=== PATIENT | female | born 1940 | race Caucasian/White ===

== ENCOUNTER 2024-11-25 18:09 | Inpatient (IN) | payer MEDICARE, OTHER, SELFPAY ==
[2024-11-25 12:47] VITALS: BP 146/77
[2024-11-25 13:32] LABS: % Basophils 2.2 % (0-2); % Eosinophils 1.4 % (0-6); % Lymphocytes 10.4 % (20.5-51.1); % Monocytes 13.4 % (1.7-9.3); % Neutrophils 71.6 % (42.2-75.2); Absolute Basophils 0.1 10^3/uL (0-0.2); Absolute Eosinophils 0.1 10^3/uL (0-0.7); Absolute Immature Granulocytes 0.1 10^3/uL (0-0.05); Absolute Lymphocytes 0.6 10^3/uL (1.2-3.4); Absolute Monocytes 0.8 10^3/uL (0.1-0.6); Absolute Neutrophils 4.2 10^3/uL (1.4-6.5); Hematocrit 32.8 % (37.0-47.0); Mean Corp Hgb Conc. 36.6 g/dL (33.0-37.0); Mean Corpuscular Hgb 41.7 pg (27.0-31.0); Mean Corpuscular Volume 113.9 fL (81.0-99.0); Nucleated Red Blood Cells % 5.1 %; Platelet Count 234 10^3/uL (130-400); Red Blood Cell Count 2.88 10^6/uL (4.20-5.40); Red Cell Dist. Width 20.3 % (11.5-14.5); White Blood Cell Count 5.9 10^3/uL (4.8-10.8)
[2024-11-25 13:47] LABS: ALT (SGPT) 91 U/L (0-35); AST (SGOT) 107 U/L (14-36); Albumin 3.9 g/dl (3.5-5.0); Alkaline Phosphatase 50 U/L (38-126); Blood Urea Nitrogen 65 mg/dl (7-17); Calcium 9.5 mg/dl (8.4-10.2); Carbon Dioxide 28 mmol/L (22-30); Chloride 99 mmol/L (98-107); Glucose 90 mg/dl (70-99); Potassium 3.4 mmol/L (3.5-5.1); Sodium 138 mmol/L (135-145); Total Bilirubin 1.8 mg/dl (0.2-1.3); Total Protein 6.6 g/dl (6.3-8.2); eGFR 50.17
[2024-11-25 14:00] LABS: NT-proBNP > 27000 pg/ml; Troponin I 0.148 ng/ml
[2024-11-25 14:32] VITALS: BMI 24.3
--- NOTE | 2024-11-25 14:32 | PHANOTE ---
Addendum entered by Diana Foreman 11/25/24 14:43:
patient daughter in room now, called her sister to stop by patient independent living apartment at crisis to bring in medication list an/ or bottles
Original Note:
med rec note- called patient doctors office at [phone] but went to voice mail after being transfer. also called patient pharmacy on file but patient currently using mail order
[2024-11-25] MEDS: KCL 40 MEQ PO (14:59)
[2024-11-25] MEDS: LASIX 40 MG IV (14:59)
[2024-11-25] MEDS: KCL 160 MEQ IV (15:54)
--- NOTE | 2024-11-25 17:05 | ED.GENMED ---
History of Present Illness
General
Chief Complaint: Breathing Problem
Time Seen by Provider: 11/25/24 14:22
History of Present Illness
History of Present Illness:
84-year-old female with history of CHF, hypertension, and hyperlipidemia presents to the emergency department for evaluation of shortness of breath and fatigue for the past several days. She has had increasingly worsening bilateral leg edema and
was switched by her gravel wheeler from furosemide to torsemide however feels like she is not urinating well since that time. Denies any chest pain at this point. She also has had multiple falls recently, most notably struck the left flank on the
ground and has a large amount of bruising and swelling to that area.
Review of Systems
Review of Systems
Allergies reviewed?: Yes
All Other Systems: ROS reviewed and negative except as documented in HPI and ROS
Phy Exam
Physical Exam
Physical Exam:
GEN: Well appearing, NAD, WDWN
HEENT: Oral mucosa moist, no scleral icterus
Cardiac: Regular rate
Lung: Tachypneic, no accessory muscle use, bibasilar crackles and diminished breath sounds
Abdomen: Soft, nontender, large flank hematoma in the left
MSK: No gross deformity or injuries, moderate to severe pedal edema bilaterally
Skin: Good color, no pallor or jaundice, no rashes
Neuro: AO x3, moves all extremities freely
Psych: Calm, cooperative
Scores
Heart Failure Risk
Heart Failure Risk Score: Yes
History of Stroke or TIA: No
History of intubation for respiratory distress: No
Heart rate on ED arrival >/= 110: Yes
SaO2 <90% on arrival on room air: Yes
HR >/=110 during 3min walk test (or too ill to perform test): Yes
ECG has acute ischemic changes: No
Urea >/=12mmol/L (BUN 33.6mg/dL): No
Serum CO2>/=35mmol/L: No
Troponin I or T elevated to ID Level (0.4mg/dL): Yes
NT-proBNP >/=5,000ng/L (5,000pg/ml): Yes
HF Risk Score: 6
Admission Status: VERY HIGH RISK 55.3% Consider admission to hospital
Course
Orders/Labs/Results
Orders:
Orders
11/25/24 12:48
Electrocardiogram (*1) Urgent
Reason for Study: Shortness of Breath
EKG- Treatment ONCE
11/25/24 13:08
Complete Blood Count/With Diff Urgent
Comprehensive Metabolic Panel Urgent
NT-proBNP Urgent
Troponin I Urgent
11/25/24 14:51
CT Abd/Pel (IV only)-DH only Urgent
Comment:
Reason For Exam: fall, L flank hematoma
Furosemide [Lasix] 40 mg IV NOW STA
Potassium Chloride [KCl] 40 meq PO NOW STA
CR Chest - 2 Views Urgent
Comment:
Reason For Exam: SOB
11/25/24 14:58
Potassium Chloride [KCl] 20 meq 0.9% Sodium Chloride 150 ml [Nss] 150 ml IV NOW
11/25/24 17:45
Admit/Transfer Patient As Directed
Co-Sign Provider:
Level of Care: Inpatient admission
Assign to:: Telemetry
Physician / Group: Dr Best
Diagnosis: CHF
Reason for Telemetry: Subacute Heart Failure
Date to Stop Telemetry: 11/27/24
Time to Stop Telemetry: 11:00
Reason for Hospitalization: CHF
Expected length of stay greater than two midnights?: Yes
ELOS- Estimated Length of Stay in days: 2
I certify the patient meets the requirements for IP care: Yes
PRN Pain Medication Management As Directed
May give lesser potent ordered pain med per pt: Yes
preference::
Protocol:: Medication orders for pain may be administered in a
manner that supports deferring to patient preference
when the pt is:
- Requesting an ordered lesser potent pain medication.
Least to most potent pain medications are defined
as: acetaminophen < NSAID < tramadol < opioids
(morphine, oxycodone, hydromorphone).
- Requesting a lesser dose of the same medication IF
ORDERED.
- Requesting a less intrusive route of administration
if both routes are prescribed by the provider (PO <
IV).
11/25/24 17:46
Code Status As Directed
Resuscitation Status: Full Code
11/25/24 17:48
Echo 2D MMode Color/Doppler Routine
Reason for Study: CHF
11/25/24 18:05
Code Status As Directed
Resuscitation Status: Do not resuscitate
Reached after discussion with pt or family/Healthcare POA: Yes
DNR Bracelet Application ONCE
11/26/24 06:00
Magnesium IN AM
11/27/24 11:00
DC Protocol for Telemetry ONCE
Abnormal Lab Results
11/25/24
13:08
RBC 2.88 L 10^6/uL
(4.20-5.40)
Hct 32.8 L %
(37.0-47.0)
MCV 113.9 H fL
(81.0-99.0)
MCH 41.7 H pg
(27.0-31.0)
RDW 20.3 H %
(11.5-14.5)
MPV 11.0 H fL
(7.4-10.4)
Abs Immat Gran (auto) 0.1 H 10^3/uL
(0-0.05)
Absolute Lymphs (auto) 0.6 L 10^3/uL
(1.2-3.4)
Absolute Monos (auto) 0.8 H 10^3/uL
(0.1-0.6)
Immature Gran % 1.0 H %
(0-0.5)
Lymphocytes % 10.4 L %
(20.5-51.1)
Monocytes % 13.4 H %
(1.7-9.3)
Basophils % 2.2 H %
(0-2)
Potassium 3.4 L mmol/L
(3.5-5.1)
BUN 65 H mg/dl
(7-17)
Creatinine 1.1 H mg/dL
(0.6-1.0)
Total Bilirubin 1.8 H mg/dl
(0.2-1.3)
AST 107 H U/L
(14-36)
ALT 91 H U/L
(0-35)
Troponin I 0.148 H* ng/ml
11/25/24 13:08
11/25/24 13:08
Vital Signs
Initial and Last Documented VS:
Initial Vital Signs
Temp Pulse Resp BP Pulse Ox
98.2 F 78 16 146/77 100
11/25/24 12:47 11/25/24 12:47 11/25/24 12:47 11/25/24 12:47 11/25/24 12:47
Last Documented Vital Signs
Temp Pulse Resp BP Pulse Ox
98.2 F 77 20 146/77 89
11/25/24 12:47 11/25/24 17:30 11/25/24 18:00 11/25/24 14:59 11/25/24 17:30
MDM/Problems Addressed
MDM/Problems Addressed:
Patient is markedly volume overloaded with respiratory failure and hypoxia. CTA of the abdomen pelvis was obtained to evaluate for intra-abdominal trauma in the setting of recent fall, this revealed only an extra-abdominal hematoma. Incidentally
noted large pulmonary effusions bilaterally. Patient will require admission for IV diuresis and close monitoring for further management
*Pulse Oximetry
Patient hypoxic: yes
*Critical Care Note
Total Time (30-74mins, 75-104mins- exclusive of procedures): Not Applicable
ED Attending Note
-
Portions of this chart may have been created with voice recognition software.� Occasional wrong word or��sound alike� substitutions may have occurred due to the inherent limitations of voice recognition software.
Discharge Plan
Departure
Patient Disposition: Admit
Date of Disposition: 11/25/24
Time of Disposition: 17:06
Admit to: Telemetry
Presentation/result/management discussed w/ accepting MD/DO: Hospitalist
Discharge Problem:
Acute decompensated heart failure
Interventions
Interventions:
*Risk Screen - Suicide Last Done: 11/25/24 12:48
*General Assessment Last Done: 11/25/24 14:41
*Neglect/Abuse Screening Last Done: 11/25/24 12:48
*ED- Fall Risk Assessment Last Done: 11/25/24 14:40
*ED COVID-19 Vaccine History Last Done: 11/25/24 14:40
ED- Cardiac Assessment Last Done: 11/25/24 14:42
ED- Pulmonary Assessment Last Done: 11/25/24 14:43
--- NOTE | 2024-11-25 17:48 | HPS.HSE ---
Family Physician
-
Family Physician: Casey Uriarte
Chief Complaint
-
sob
History of Present Illness
Patient 84 years old female who has past medical history of CHF, hypertension, depression, GERD, came into the hospital shortness of breath and lower extremity edema. Patient has been experiencing dyspnea over the last 1 to 2 weeks has been
progressively getting worse associated with worsening lower extremity edema. She denies weight gain. She also has noticed that she has not been urinating as much as she should. She denies chest pain. She has seen her metal engraver (Dr. Gonzalez) and
he has switched his regular furosemide 20 mg daily to torsemide about a week ago and despite changes patient has been continue to be symptomatic. Patient denies any fevers or chills. Denies any nausea vomiting or diarrhea. Patient does have poor
appetite. In the ER, patient was noted to have a chest x-ray with heart failure features, elevated troponin, and she was given IV Lasix x 1 in the ED. She was referred to hospitalist service for further evaluation
Medical History
Past Medical History
Past Medical History: Reports Other
Additional Past Medical History:
Hypertension, GERD, CHF.
Past Surgical History: Reports None
Social History
Tobacco: Non-smoker
Alcohol: None
Drug: None
Family History
Family History: Not pertinent
Allergies / Home Medications
Allergies reflects when Allergies were last updated in [employer].
Home Medications with original date entered in [employer]
Allergy/Medication List:
Allergies
Allergy/AdvReac Type Severity Reaction Status Date / Time
No Known Allergies Allergy Unverified 11/25/24 12:47
Home Medications
atenolol 25 mg tablet 25 mg PO DAILY 11/25/24
bimatoprost 0.03 % eye drops 1 drp BOTH EYES HS 11/25/24
celecoxib 200 mg capsule 200 mg PO DAILYPRN PRN mild pain 11/25/24
cevimeline 30 mg capsule 1 cap PO TID 11/25/24
cholecalciferol (vitamin D3) 50 mcg (2,000 unit) tablet (Vitamin D3) 50 mcg PO DAILY 11/25/24
dorzolamide 22.3 mg-timolol 6.8 mg/mL eye drops (Cosopt) 1 drp BOTH EYES BID 11/25/24
famotidine 40 mg tablet (Pepcid) 40 mg PO HS 11/25/24
pantoprazole 40 mg tablet,delayed release (Protonix) 40 mg PO DAILY 11/25/24
sertraline 50 mg tablet 125 mg PO DAILY 11/25/24
therapeutic multivitamin 1 tab PO DAILY 11/25/24
torsemide 20 mg tablet 10 mg PO DAILY 11/25/24
valsartan 160 mg tablet 160 mg PO DAILY 11/25/24
Review of Systems
-
A 12 point ROS was completed and negative except as noted: Yes
Physical Exam
Vital Signs
Vital Signs
Temp Pulse Resp BP Pulse Ox
98.2 F 77 22 146/77 89
11/25/24 12:47 11/25/24 17:30 11/25/24 17:30 11/25/24 14:59 11/25/24 17:30
Physical exam:
General: Acutely ill
HEENT: Normocephalic, Atraumatic and Moist Mucous Membranes
Respiratory: Coarse crackles bilateral; Negative Wheezes or Rhonchi
Cardiac: Regular Rhythm and S1/S2
GI: Soft, Nontender and Nondistended
Musculoskeletal: Bilateral lower extremity edema 2+. No Clubbing, No Cyanosis
Neuro: Awake, Alert and Oriented, no neurological deficit
Psych: Calm
Physical Exam
General: Other
Laboratory Results
-
11/25/24 13:08
11/25/24 13:08
Laboratory Results
Total Bilirubin 1.8 mg/dl (0.2-1.3) H 11/25/24 13:08
AST 107 U/L (14-36) H 11/25/24 13:08
ALT 91 U/L (0-35) H 11/25/24 13:08
Alkaline Phosphatase 50 U/L (38-126) 11/25/24 13:08
Troponin I 0.148 ng/ml H* 11/25/24 13:08
Data Reviewed
-
Diagnostic Radiology: Image Personally Visualized and interpreted
Lab Data: Labs Reviewed by me
Impression/Plan
-
IMPRESSION:
Patient 84 years old female with multiple medical problem came into the hospital shortness of breath and found to be in heart failure decompensation. Patient had increased risk of morbidity mortality therefore she will need to be treated in the
hospital and monitor accordingly.
PLAN:
Acute on chronic CHF, type unknown:
IV diuretics, Lasix 40 mg twice a day
BNP upon admission [address]
Chest x-ray seen by me and with CHF features
Monitor strict I/O
Monitor daily weight
Monitor renal function and electrolytes
Obtain echocardiogram
Once we obtain accurate list of medication we can review appropriate GDMT
Fluid restriction
Salt restriction
Heart failure education
Follow up clinical response
Cardiology consult-discussed with cardiology via [place] text today
Hypertension:
Will have her on IV hydralazine as needed
Restart her home medications when available
Monitor blood pressure closely
Depression:
Restart home anti-depressants when able
GERD:
Clarify if on H2 tamara or PPI
DVT prophylaxis:
Lovenox SQ
CODE STATUS:
DNR
Time spent 77 minutes
[2024-11-25 18:56] VITALS: BP 132/80
[2024-11-25 19:00] VITALS: BP 132/75
--- NOTE | 2024-11-25 20:32 | PTCARENOTE ---
left iv found to be infiltrated. a small area of localized swelling and redness (2 cm radius) observed with associated tenderness. Redness resolved after d/Cing K rider infusion. Iv removed and limb elevated. Provider and VAT team made aware. IV
removed and restarted on opposite limb.
[2024-11-25 20:49] VITALS: BP 137/56
--- NOTE | 2024-11-25 20:50 | PTCARENOTE ---
Pt arrived from the ED via stretcher accompanied by daughter. Patient turned and pivoted onto the bed. AAOx3, VSS. No complaints of pain. Ambulated with a walker. Does report stress incontinence, has own pullups. Patient and family oriented to the
room. Educated about diet and fluid restriction. Call nation is within reach.
--- NOTE | 2024-11-25 20:55 | VATNOTE ---
TT from ER nurse that pt had a k rider infiltrate. This VAT RN noted left AC area taped and labeled; size approx 5 cm wide. pt stated only hurt when touched. Heat applied and elevated left arm on pillow. VAT to follow.
[2024-11-25 21:19] VITALS: BMI 24.3
[2024-11-25] MEDS: LOVENOX 40 MG SC (21:25)
[2024-11-25 21:44] VITALS: BMI 23.1
[2024-11-25 23:35] VITALS: BP 134/81
[2024-11-25 23:41] LABS: Troponin I 0.119 ng/ml
[2024-11-26 00:19] VITALS: BMI 23.1
[2024-11-26 03:20] VITALS: BP 142/83
[2024-11-26 06:50] LABS: Hematocrit 31.6 % (37.0-47.0); Hemoglobin 11.8 g/dL (12.0-16.0); Mean Corp Hgb Conc. 37.3 g/dL (33.0-37.0); Mean Corpuscular Hgb 41.8 pg (27.0-31.0); Mean Corpuscular Volume 112.1 fL (81.0-99.0); Platelet Count 239 10^3/uL (130-400); Red Blood Cell Count 2.82 10^6/uL (4.20-5.40); White Blood Cell Count 5.3 10^3/uL (4.8-10.8)
[2024-11-26 07:14] LABS: Blood Urea Nitrogen 56 mg/dl (7-17); Calcium 9.1 mg/dl (8.4-10.2); Carbon Dioxide 29 mmol/L (22-30); Chloride 103 mmol/L (98-107); Estimated Creatinine Clearance 30 ml/min; Glucose 97 mg/dl (70-99); Magnesium 1.9 mg/dl (1.6-2.3); Potassium 3.5 mmol/L (3.5-5.1); Sodium 139 mmol/L (135-145); eGFR 50.17
[2024-11-26 07:48] VITALS: BP 136/84
[2024-11-26] MEDS: LASIX 40 MG IV ×2 (08:10→15:15)
[2024-11-26 08:32] VITALS: BMI 23.1
--- NOTE | 2024-11-26 10:08 | W.PN.HOSP.TC ---
Today's Communication/Plan
-
IV diuretics
Assessment / Plan
Assessment / Plan
Physical exam:
General: Acutely ill
HEENT: Normocephalic, Atraumatic and Moist Mucous Membranes
Respiratory: Coarse crackles bilateral; Negative Wheezes or Rhonchi
Cardiac: Regular Rhythm and S1/S2
GI: Soft, Nontender and Nondistended
Musculoskeletal: Bilateral lower extremity edema 2+. No Clubbing, No Cyanosis
Neuro: Awake, Alert and Oriented, no neurological deficit
Psych: Calm
A/P:
Acute on chronic systolic CHF:
IV diuretics, Lasix 40 mg twice a day
BNP upon admission [address]
Chest x-ray seen by me and with CHF features
Monitor strict I/O
Monitor daily weight
Monitor renal function and electrolytes
Obtain echocardiogram
Will follow-up cardiology recommendations in terms of GDMT
Fluid restriction
Salt restriction
Heart failure education
Follow up clinical response
Cardiology consult-discussed with cardiology via [place] text today
Hypertension:
Will have her on IV hydralazine as needed
Restart her home medications but might need adjustment
Monitor blood pressure closely
Depression:
Restart home anti-depressants today
GERD:
Continue H2 tamara and PPI
DVT prophylaxis:
Lovenox SQ
CODE STATUS:
DNR
Total time spent on today's encounter was 52 minutes which included time spent in counseling the patient/family regarding diagnosis and treatment plan as listed above, goals of care, and symptom management. Case was discussed with nursing staff,
specialists, and care coordinators/case management. All labs and imaging personally reviewed by me. Remainder the time spent in detailed review of previous records, lab data, imaging, and other medical provider documentation.
Anticipated Discharge: > 48 hours
Subjective/Interval History
-
Date of Service: November 26, 2024
Patient still feels short of breath but improving. She is upset after cardiology gave her some news.
Objective Data
-
Labs:
Laboratory Results
11/26/24
06:27
WBC 5.3
Hgb 11.8 L
Hct 31.6 L
Plt Count 239
Sodium 139
Potassium 3.5
Chloride 103
Carbon Dioxide 29
BUN 56 H
Creatinine 1.1 H
Glucose 97
Calcium 9.1
Vital Signs:
Vital Signs
Temp Pulse Resp BP Pulse Ox
97.9 F 88 18 136/84 94
11/26/24 07:48 11/26/24 08:10 11/26/24 07:48 11/26/24 08:10 11/26/24 07:48
I&O
11/25/24 11/26/24 11/27/24
06:59 06:59 06:59
Intake Total 640 / 640 240 / 240
Balance 640 / 640 240 / 240
--- NOTE | 2024-11-26 10:36 | CON.CAR ---
Addendum entered and electronically signed by Kaz Sampson MD 11/26/24 13:42:
Patient seen and examined in collaboration with [employer]; agree with below.
- 84-year-old female with CHF (followed by her primary Music Store Manager at [facility]) admitted with CHF exacerbation; this a threat to life.
- The patient's echocardiogram today revealed an LVEF of 10-15%, moderate to severe MR/TR, and moderate AR; this is likely not acute.
- The patient appears to be a poor candidate for any aggressive measures/workup; she is currently vomiting as well.
- Minimal troponin elevation is most likely secondary to acute nonischemic myocardial injury in the setting of CHF exacerbation.
- Conservative cardiac management is recommended overall.
- Continue Lasix 40 mg IV BID.
- GDMT optimization recommended:
- Will change from atenolol to Toprol-XL 25 mg daily.
- Will change from valsartan to Entresto BID.
- Will start Farxiga 10 mg daily.
- Will hold off on adding spironolactone due to mild renal insufficiency for now; can reevaluate as outpatient.
Original Note:
Consultation
Consultation Request
Date/Time Consultation Requested: 11/26/24 9a
Date/Time Consultation Performed: 11/26/24 10a
Requesting Provider: Dr. Best
Performing Provider: NBA Robert for Dr. Sampson
Reason for Consultation: CHF
Medical History
-
Chief Complaint: SOB
History of Present Illness:
Mrs. White is an 84 yo female (outpatient balance sheet analyst is Dr. Gonzalez) with CHF (unknown EF), HTN, GERD and HLD, who presents to the ER with c/o SOB/SALES and increased LE edema for 1 week. She is admitted to the hospitalist service and we are
consulted for acute CHF. She states seeing Dr. Gonzalez last week for same complaints and he changed her Lasix 20mg daily to Torsemide 10mg daily. She feels no improvement in symptoms and admits to weakness/fatigue and confusion. ProBNP is > 27,000,
CXR with mild CHF, small bilateral pleural effusions with associated atelectasis and/or pneumonia, cannot rule out component of underlying chronic interstitial lung disease.
Past Medical History
Past Medical History: Other (as above)
Social History
Tobacco: Non-Smoker
Alcohol: None
Personal:
Living: Assisted Living ([facility] )
Employment: Retired
Family History
Family History: Reviewed & Not Pertinent
Allergies / Home Medications
Allergy/AdvReac Type Severity Reaction Status Date / Time
No Known Allergies Allergy Unverified 11/25/24 12:47
�Medication �Instructions �Recorded �Confirmed �Type
atenolol 25 mg tablet 25 mg PO DAILY Blood Pressure 11/25/24 11/25/24 History
bimatoprost 0.03 % eye drops 1 drp BOTH EYES HS Eye Condition 11/25/24 11/25/24 History
celecoxib 200 mg capsule 200 mg PO DAILYPRN PRN mild pain 11/25/24 11/25/24 History
cevimeline 30 mg capsule 1 cap PO TID Xerostomia 11/25/24 11/25/24 History
cholecalciferol (vitamin D3) 50 50 mcg PO DAILY Supplement 11/25/24 11/25/24 History
mcg (2,000 unit) tablet (Vitamin
D3)
dorzolamide 22.3 mg-timolol 6.8 1 drp BOTH EYES BID Eye Condition 11/25/24 11/25/24 History
mg/mL eye drops (Cosopt)
famotidine 40 mg tablet (Pepcid) 40 mg PO HS Gastrointestinal Issue 11/25/24 11/25/24 History
pantoprazole 40 mg tablet,delayed 40 mg PO DAILY Gastrointestinal 11/25/24 11/25/24 History
release (Protonix) Issue
sertraline 50 mg tablet 125 mg PO DAILY Depression 11/25/24 11/25/24 History
therapeutic multivitamin 1 tab PO DAILY Supplement 11/25/24 11/25/24 History
torsemide 20 mg tablet 10 mg PO DAILY Fluid 11/25/24 11/25/24 History
Retention/Swelling
valsartan 160 mg tablet 160 mg PO DAILY Blood Pressure 11/25/24 11/25/24 History
Review of Systems
-
History Source: Patient
All other systems: Negative unless noted
Physical Exam
Vital Signs
Temp Pulse Resp BP Pulse Ox
97.9 F 88 18 136/84 94
11/26/24 07:48 11/26/24 08:10 11/26/24 07:48 11/26/24 08:10 11/26/24 07:48
Lab Results
11/26/24 06:27
11/26/24 06:27
Troponin I Cancelled 11/26/24 12:34
[id number] Pept > 04036 pg/ml 11/25/24 13:08
Physical Exam
General: No Apparent Distress and Other (elderly/frail)
HEENT: Normocephalic, Anicteric and Moist Mucous Membranes
Respiratory: Crackles (bibasilar) and Non Labored Respirations
Cardiac: S1/S2, Regular Rhythm and Peripheral Edema (+2 pitting edema to knees b/l )
Breast: Deferred by me
GI: Soft, Non Tender, Non Distended and Normal Bowel Sounds
Rectal: Deferred by Provider
Genito-urinary: No Costovertebral Tender
Musculoskeletal: No Clubbing and No Cyanosis
Skin: Warm and Dry
Neuro: AO x 3
Hematologic/Lymphatic: No Lymphadenopathy
Psych: Calm
Impression / Plan
-
CHF - acute on chronic, unknown EF.
- agree with IV diuresis Lasix 40mg BID.
- check echo.
- fluid/sodium restrictions, daily weights, I&Os.
HTN - stable on medical therapy.
- monitor with diuresis.
GERD - stable, continue Pepcid and Protonix.
Data Reviewed
-
EKG: Tracing Personally Visualized and interpreted (NSR with premature supraventricular complexes 80bpm)
Radiology: Report Reviewed by me (CXR: Suspect mild CHF, small bilateral pleural effusions with associated atelectasis and/or pneumonia, cannot rule out component of underlying chronic interstitial lung disease.)
Labs: Labs Reviewed by me
Old Records: Reviewed
[2024-11-26] MEDS: PROTONIX 40 MG PO (11:57)
[2024-11-26] MEDS: TENORMIN 25 MG PO (11:58)
[2024-11-26] MEDS: ZOLOFT 100 MG PO (11:58)
[2024-11-26] MEDS: ZOLOFT 25 MG PO (11:58)
[2024-11-26] MEDS: DIOVAN 160 MG PO (11:59)
[2024-11-26 12:10] VITALS: BP 141/88
--- NOTE | 2024-11-26 13:19 | CM ---
Reviewed the chart notes and spoke with the patient at the bedside. The patient resides in an independent apartment at [facility]. The patient resides with her spouse. The patient has a rolling walker, shower chair, and shower rails in
the home. The patient reports no VN or SNF in the past. The patient confirmed her pharmacy of choice is [facility] [address]. CM continues to be available to patient/family and is monitoring medical plan for needs at discharge.
Plan: Discharge plans will depend on the patient's progress.
[2024-11-26 15:25] VITALS: BP 137/81
[2024-11-26] MEDS: LOVENOX 40 MG SC (17:39)
[2024-11-26 19:16] VITALS: BP 128/73
[2024-11-26] MEDS: ENTRESTO 24 MG/26 MG 1 TAB PO (20:27)
[2024-11-26] MEDS: TRUSOPT 2% OPHTHALMIC SOLUTION 1 DROP BOTH EYES (20:27)
[2024-11-26] MEDS: TOPROL XL 25 MG PO (20:27)
[2024-11-26] MEDS: TIMOPTIC 0.5% OPHTHALMIC SOLUTION 1 DROP BOTH EYES (20:27)
--- NOTE | 2024-11-26 20:30 | PTCARENOTE ---
daughter would like the doctor to go over echo results, and pt eval do to current weakness. provided family w/ CHF folder and review medication changes.
[2024-11-26] MEDS: PEPCID 20 MG PO (21:23)
[2024-11-26] MEDS: XALATAN OPHTHALMIC SOLUTION 1 DROP BOTH EYES (21:23)
[2024-11-26 23:14] VITALS: BP 130/77
[2024-11-27] VITALS (7 sets, daily range): BP systolic 129–136; BP diastolic 65–80; BMI 22.6
[2024-11-27] MEDS: FARXIGA 10 MG PO (08:23)
[2024-11-27] MEDS: PROTONIX 40 MG PO (08:23)
[2024-11-27] MEDS: ENTRESTO 24 MG/26 MG 1 TAB PO ×2 (08:23→20:13)
[2024-11-27] MEDS: TIMOPTIC 0.5% OPHTHALMIC SOLUTION 1 DROP BOTH EYES ×2 (08:26→20:20)
[2024-11-27] MEDS: LASIX 40 MG IV ×2 (08:26→15:31)
[2024-11-27] MEDS: ZOLOFT 100 MG PO (08:26)
[2024-11-27] MEDS: ZOLOFT 25 MG PO (08:26)
[2024-11-27] MEDS: TRUSOPT 2% OPHTHALMIC SOLUTION 1 DROP BOTH EYES ×2 (08:27→20:19)
[2024-11-27] MEDS: VALIUM INJECTION 2 MG IV (09:12)
--- NOTE | 2024-11-27 09:15 | PTCARENOTE ---
Pt. stating she cant breath and is going to throw up. Pt. O2 sat 92% on RA, pt. placed on 2L NC for comfort, sat 98%. Dr. Best made aware. Pt. with approx 100 ml yellow liquid emesis. PRN Valium given as ordered. Pt. resting in bed with call nation
in reach.
--- NOTE | 2024-11-27 09:17 | W.PN.HOSP.TC ---
Addendum entered and electronically signed by Roddy Best MD 11/27/24 16:03:
Updated daughter over the phone today. Also will cancel GI consultation. Will continue with current medications and supportive care and we might get hospice care involved for further evaluation.
Original Note:
Today's Communication/Plan
-
IV diuretics
Assessment / Plan
Assessment / Plan
Physical exam:
General: Acutely ill
HEENT: Normocephalic, Atraumatic and Moist Mucous Membranes
Respiratory: Coarse crackles bilateral; Negative Wheezes or Rhonchi
Cardiac: Regular Rhythm and S1/S2
GI: Soft, Nontender and Nondistended
Musculoskeletal: Bilateral lower extremity edema 2+. No Clubbing, No Cyanosis
Neuro: Awake, Alert and Oriented, no neurological deficit
Psych: Calm
A/P:
Acute on chronic systolic CHF:
Echocardiogram EF 10 to 50% and moderate to severe mitral regurgitation/tricuspid regurgitation and moderate AR.
Cardiology noted she is poor candidate for any aggressive measures or workup.
IV diuretics, Lasix 40 mg twice a day
BNP upon admission 73985
Chest x-ray seen by me and with CHF features
Monitor strict I/O
Monitor daily weight
Monitor renal function and electrolytes
Obtain echocardiogram
Will follow-up cardiology recommendations in terms of GDMT--> Per cardiology change atenolol to Toprol-XL 25 mg daily, changed valsartan to Entresto, started on Farxiga. Plan start spironolactone as outpatient.
Fluid restriction
Salt restriction
Heart failure education
Follow up clinical response
Cardiology consult and follow-up appreciated
Persistent nausea and vomiting:
I think this could all related to heart failure but cannot rule out other GI etiologies
Will request GI consult for further evaluation-discussed with GI today via [place] text
Supportive care for now
Review CT scan of the abdomen and pelvis and also reached out to radiology who reports also fluid in the abdomen but no other abnormalities and no hematoma
Hypertension:
Blood pressure adjusted as above
Monitor blood pressure closely
Depression:
Restarted home anti-depressants
GERD:
Continue H2 tamara and PPI
DVT prophylaxis:
Lovenox SQ
CODE STATUS:
DNR
Total time spent on today's encounter was 52 minutes which included time spent in counseling the patient/family regarding diagnosis and treatment plan as listed above, goals of care, and symptom management. Case was discussed with nursing staff,
specialists, and care coordinators/case management. All labs and imaging personally reviewed by me. Remainder the time spent in detailed review of previous records, lab data, imaging, and other medical provider documentation.
Anticipated Discharge: > 48 hours
Subjective/Interval History
-
Date of Service: November 27, 2024
Patient still short of breath. Patient is also very nauseous and vomiting and abdominal discomfort today. Afebrile
Objective Data
-
Labs:
Laboratory Results
11/27/24 11/27/24
06:35 08:12
Sodium Cancelled Pending
Potassium Cancelled Pending
Chloride Cancelled Pending
Carbon Dioxide Cancelled Pending
BUN Cancelled Pending
Creatinine Cancelled Pending
Glucose Cancelled Pending
Calcium Cancelled Pending
Vital Signs:
Vital Signs
Temp Pulse Resp BP Pulse Ox
97.2 F 69 14 129/73 98
11/27/24 07:40 11/27/24 08:23 11/27/24 07:40 11/27/24 08:23 11/27/24 08:55
I&O
11/26/24 11/27/24 11/28/24
06:59 06:59 06:59
Intake Total 640 / 640 1200 / 1200
Balance 640 / 640 1200 / 1200
[2024-11-27 09:23] LABS: Blood Urea Nitrogen 53 mg/dl (7-17); Calcium 8.7 mg/dl (8.4-10.2); Carbon Dioxide 26 mmol/L (22-30); Chloride 104 mmol/L (98-107); Estimated Creatinine Clearance 33 ml/min; Glucose 114 mg/dl (70-99); Potassium 3.5 mmol/L (3.5-5.1); Sodium 140 mmol/L (135-145); eGFR 56.25
--- NOTE | 2024-11-27 12:23 | W.PN.CD ---
Addendum entered and electronically signed by Kaz Sampson MD 11/27/24 16:42:
Patient seen and examined in collaboration with PGY 2 Resident; agree with below.
- Patient states that shortness of breath is improving.
- Physical examination: Regular rate and rhythm, 2/6 systolic murmur; bibasilar rhonchi; 2+ bilateral lower extremity edema.
- LVEF 15-20%%; volume status is relatively stable/slowly improving.
- Discussed with daughters at bedside that patient's prognosis is poor; poor candidate for any aggressive measures.
- Maintain conservative cardiac management.
- Continue Lasix 40 mg IV BID.
- Continue current medications for GDMT.
- Palliative Care consultation should be initiated at this point for future goals of care for patient at home.
Original Note:
Documented by User: Yann Solomon MD, Resident 11/27/24 12:32
Today's Communication / Plan
-
* IV furosemide.
Impression / Plan
-
Acute on chronic heart failure with reduced ejection fraction
- LVEF 15-20% with significant valvular disease burden and global hypokinesis.
- IV furosemide 40 mg BID.
- Optimize GDMT with metoprolol succinate, sacubitril-valsartan and dapagliflozin.
- Hold MRA due to renal function.
- Fluid/sodium restrictions, daily weights, I&Os.
- Significant functional decline in the past few months.
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
- Poor candidate for invasive interventions.
- Would benefit from involvement of palliative care outpatient.
Hfkdkjbz-hb-scmmuf mitral regurgitation
Ouhpialk-vn-hkvvfu tricuspid regurgitation
Moderate aortic regurgitation
- Poor candidate for invasive interventions, per above.
- Conservative medical management.
Primary hypertension
- Monitor on diuresis and GDMT.
GERD
Physical Exam
Vital Signs/Labs
Vital Signs
Temp Pulse Resp BP Pulse Ox
97.7 F 72 16 132/73 97
11/27/24 11:10 11/27/24 11:10 11/27/24 11:10 11/27/24 11:10 11/27/24 11:10
11/26/24 11/27/24 11/28/24
06:59 06:59 06:59
Actual Weight 55.537 kg 54.148 kg
11/26/24 06:27
11/27/24 08:12
Magnesium 1.9 mg/dl (1.6-2.3) 11/26/24 06:27
11/25/24
13:08
Nex-R-Teeyfsgutuk Pept > [id number]
LAB Results
11/25/24 11/25/24 11/26/24
13:08 22:43 06:27
Troponin I 0.148 H* 0.119 H* 0.100 H*
11/26/24
12:34
Troponin I Cancelled
Physical Exam
Constitutional: No acute distress and Comfortable
EENT: Anicteric and Moist mucous membranes
Cardiovascular: Rhythm & rate is regular, Pedal edema present (3+ BL LE) and Systolic murmur present (pansystolic)
Respiratory: Respiratory effort normal, Crackles Present (bases mild) and Other (2L O2)
GI: Soft and Non tender
Neuro/Psych: Alert, Oriented and Motor deficits absent
Data Reviewed
-
Date of Service: November 27, 2024

Documented by User: Kaz Sampson MD 11/27/24 16:38
Data Reviewed
-
EKG: Tracing Personally Visualized and interpreted (Telemetry: Sinus rhythm)
Echo: Tracing Personally Visualized and interpreted (LVEF 15-20%; moderate to severe MR/TR, moderate AR, PASP 60-65 mmHg.)
Medical Tests (PFT, Pathology etc): Discussed with Family (Daughter is at bedside)
Labs: Labs Reviewed by me
[2024-11-27] MEDS: LOVENOX 40 MG SC (17:05)
[2024-11-27] MEDS: TOPROL XL 25 MG PO (20:13)
[2024-11-27] MEDS: PEPCID 20 MG PO (20:18)
[2024-11-27] MEDS: XALATAN OPHTHALMIC SOLUTION 1 DROP BOTH EYES (21:37)
[2024-11-28] MEDS: ZOFRAN 4 MG IV ×2 (02:06→09:11)
[2024-11-28 02:22] VITALS: BP 121/76
[2024-11-28] MEDS: XANAX 0.25 MG PO (03:20)
--- NOTE | 2024-11-28 03:30 | PTCARENOTE ---
Ambulated pt to bathroom, pt began wretching. Pt given IV zofran. Pt stating 'I am going to tonight'. Pt anxious, PO xanax 0.25 mg given. pulse ox 83-88% RA- applied 2 L NC pulse ox 95%. Daughter called, at bedside. Emotional support given.
[2024-11-28 07:01] LABS: Hematocrit 32.1 % (37.0-47.0); Hemoglobin 11.7 g/dL (12.0-16.0); Mean Corp Hgb Conc. 36.4 g/dL (33.0-37.0); Mean Corpuscular Hgb 42.2 pg (27.0-31.0); Mean Corpuscular Volume 115.9 fL (81.0-99.0); Mean Platelet Volume 10.8 fL (7.4-10.4); Platelet Count 239 10^3/uL (130-400); Red Blood Cell Count 2.77 10^6/uL (4.20-5.40); Red Cell Dist. Width 20.8 % (11.5-14.5); White Blood Cell Count 5.2 10^3/uL (4.8-10.8)
[2024-11-28 07:06] LABS: Blood Urea Nitrogen 51 mg/dl (7-17); Calcium 8.6 mg/dl (8.4-10.2); Carbon Dioxide 27 mmol/L (22-30); Chloride 104 mmol/L (98-107); Estimated Creatinine Clearance 30 ml/min; Glucose 121 mg/dl (70-99); Magnesium 1.8 mg/dl (1.6-2.3); Potassium 3.3 mmol/L (3.5-5.1); Sodium 141 mmol/L (135-145); eGFR 50.17
[2024-11-28 07:30] VITALS: BP 133/78
[2024-11-28] MEDS: ZOLOFT 100 MG PO (08:30)
[2024-11-28] MEDS: PROTONIX 40 MG PO (08:30)
[2024-11-28] MEDS: TIMOPTIC 0.5% OPHTHALMIC SOLUTION 1 DROP BOTH EYES ×2 (08:30→22:02)
[2024-11-28] MEDS: ENTRESTO 24 MG/26 MG 1 TAB PO ×2 (08:30→21:00)
[2024-11-28] MEDS: ZOLOFT 25 MG PO (08:30)
[2024-11-28] MEDS: LASIX 40 MG IV ×2 (08:30→16:45)
[2024-11-28] MEDS: TRUSOPT 2% OPHTHALMIC SOLUTION 1 DROP BOTH EYES ×2 (08:30→22:01)
[2024-11-28] MEDS: FARXIGA 10 MG PO (08:30)
[2024-11-28] MEDS: KCL 40 MEQ PO (08:31)
--- NOTE | 2024-11-28 09:17 | PTCARENOTE ---
Pt. sitting in chair, called to report emesis. 100 ml yellow liquid emesis noted. Pt. given IV Zofran as ordered.
--- NOTE | 2024-11-28 09:30 | W.PN.HOSP.TC ---
Today's Communication/Plan
-
IV diuretics. GOC discussion
Assessment / Plan
Assessment / Plan
Physical exam:
General: Acutely ill
HEENT: Normocephalic, Atraumatic and Moist Mucous Membranes
Respiratory: Coarse crackles bilateral; Negative Wheezes or Rhonchi
Cardiac: Regular Rhythm and S1/S2
GI: Soft, Nontender and Nondistended
Musculoskeletal: Bilateral lower extremity edema 2+. No Clubbing, No Cyanosis
Neuro: Awake, Alert and Oriented, no neurological deficit
Psych: Calm
A/P:
Acute on chronic systolic CHF:
Echocardiogram EF 10 to 50% and moderate to severe mitral regurgitation/tricuspid regurgitation and moderate AR.
Cardiology noted she is poor candidate for any aggressive measures or workup.
IV diuretics, Lasix 40 mg twice a day
BNP upon admission 507[address]
Chest x-ray seen by me and with CHF features
Monitor strict I/O
Monitor daily weight
Monitor renal function and electrolytes
Obtain echocardiogram
Will follow-up cardiology recommendations in terms of GDMT--> Per cardiology change atenolol to Toprol-XL 25 mg daily, changed valsartan to Entresto, started on Farxiga. Plan start spironolactone as outpatient if anything.
Fluid restriction
Salt restriction
Heart failure education
Follow up clinical response
Cardiology consult and follow-up appreciated
Discussed with daughter at bedside today
I discussed with patient and daughter--> they are interested in palliative care approach and we will have hospice consultation today.
Persistent nausea and vomiting:
This is all related to heart failure so I did not have GI on board and I discussed with patient and family.
Continue antiemetics as needed.
Supportive care for now
Review CT scan of the abdomen and pelvis and also reached out to radiology who reports also fluid in the abdomen but no other abnormalities and no hematoma
Hypertension:
Blood pressure adjusted as above
Monitor blood pressure closely
Depression:
Restarted home anti-depressants
GERD:
Continue H2 tamara and PPI
DVT prophylaxis:
Lovenox SQ
CODE STATUS:
DNR
Total time spent on today's encounter was 52 minutes which included time spent in counseling the patient/family regarding diagnosis and treatment plan as listed above, goals of care, and symptom management. Case was discussed with nursing staff,
specialists, and care coordinators/case management. All labs and imaging personally reviewed by me. Remainder the time spent in detailed review of previous records, lab data, imaging, and other medical provider documentation.
Anticipated Discharge: 24 - 48 hours
Subjective/Interval History
-
Date of Service: November 28, 2024
Patient has less shortness of breath and less peripheral edema. Still having some nausea but improving.
Objective Data
-
Labs:
Laboratory Results
11/28/24
06:22
WBC 5.2
Hgb 11.7 L
Hct 32.1 L
Plt Count 239
Sodium 141
Potassium 3.3 L
Chloride 104
Carbon Dioxide 27
BUN 51 H
Creatinine 1.1 H
Glucose 121 H
Calcium 8.6
Vital Signs:
Vital Signs
Temp Pulse Resp BP Pulse Ox
97.6 F 67 18 133/78 98
11/28/24 07:30 11/28/24 08:30 11/28/24 07:30 11/28/24 08:30 11/28/24 07:30
I&O
11/27/24 11/28/24 11/29/24
06:59 06:59 06:59
Intake Total 1200 / 1200 360 / 360
Balance 1200 / 1200 360 / 360
[2024-11-28 11:14] VITALS: BP 124/90
--- NOTE | 2024-11-28 12:07 | HOSPNOTE ---
Hospice referral received. Called and spoke to daughter Brittnee. Reviewed hospice vs palliative care. She reports her mom is not ready to give up yet. She believes they would like to proceed with rehab at [facility]. They would also like to see if
[facility] has a palliative care program. If they do not, they might be interested in our palliative care program. They are not ready for hospice at this time. Reviewed we are always available if anything changes. She was thankful for all of the
information as this helped her to see where they are headed. CM and Attending updated. Hospice will sign off at this time.
--- NOTE | 2024-11-28 12:12 | CM ---
CM following re: d/c planning.
Hospice c/s acknowledged.
Courtney at hospice spoke with daughter, who is open to palliative care, but would like pt to go to [facility] for skilled rehab, with palliative care support. CM will initiate SNF referral for [facility].
CM will continue to follow medical progress.
--- NOTE | 2024-11-28 13:14 | W.PN.CD ---
Today's Communication / Plan
-
- Continue Furosemide 40 mg BID; possible transition to PO diuretic in the next 1-2 days.
- Conservative cardiac management is recommended overall; palliative care/hospice seems appropriate.
Impression / Plan
-
84-year-old female with CHF (followed by her primary Sales Consultant Insurance at [facility]) admitted with CHF exacerbation
Acute on chronic heart failure with reduced ejection fraction
- The patient's echocardiogram this admission revealed an LVEF of 15-20%, moderate to severe MR/TR, and moderate AR.
- The patient appears to be a poor candidate for any aggressive measures/workup.
- Minimal troponin elevation is most likely secondary to acute nonischemic myocardial injury in the setting of CHF exacerbation.
- Continue Furosemide 40 mg BID; possible transition to PO diuretic in the next 1-2 days.
- Conservative cardiac management is recommended overall; palliative care/hospice seems appropriate.
Primary hypertension
- Stable/controlled with diuresis.
GERD
- Management as per primary team.
Physical Exam
Vital Signs/Labs
Vital Signs
Temp Pulse Resp BP Pulse Ox
97.6 F 68 18 124/90 92
11/28/24 11:14 11/28/24 11:14 11/28/24 11:14 11/28/24 11:14 11/28/24 11:14
11/27/24 11/28/24 11/29/24
06:59 06:59 06:59
Actual Weight 54.148 kg
11/28/24 06:22
11/28/24 06:22
Magnesium 1.8 mg/dl (1.6-2.3) 11/28/24 06:22
11/25/24
13:08
Luv-A-Zibdirzzmwu Pept > [id number]
LAB Results
11/25/24 11/25/24 11/26/24
13:08 22:43 06:27
Troponin I 0.148 H* 0.119 H* 0.100 H*
11/26/24
12:34
Troponin I Cancelled
Physical Exam
Constitutional: No acute distress and Comfortable
EENT: Anicteric
Cardiovascular: Rhythm & rate is regular, Pedal edema present (1-2+), Systolic murmur present (2/6) and S1S2 is normal
Respiratory: Respiratory effort normal and Rhonchi Present
GI: Soft
Neuro/Psych: AO x 3
Other: Skin (Warm, dry)
Data Reviewed
-
Date of Service: November 28, 2024
EKG: Tracing Personally Visualized and interpreted (Telemetry: Sinus rhythm)
Labs: Labs Reviewed by me
[2024-11-28 15:50] VITALS: BP 122/71
--- NOTE | 2024-11-28 16:15 | PTCARENOTE ---
Pt stating that she felt SOB on RA, SPO2 95%, placed back on 2L O2 for comfort, 97% on 2L, pt stating that she feels better with O2 in place.
[2024-11-28 18:00] VITALS: BMI 22.1
[2024-11-28] MEDS: LOVENOX 40 MG SC (18:16)
[2024-11-28 19:25] VITALS: BP 119/74
[2024-11-28] MEDS: TOPROL XL 25 MG PO (21:00)
[2024-11-28] MEDS: PEPCID 20 MG PO (21:00)
[2024-11-28] MEDS: XALATAN OPHTHALMIC SOLUTION 1 DROP BOTH EYES (22:02)
[2024-11-28 23:20] VITALS: BP 122/68
[2024-11-29 03:15] VITALS: BP 134/79
[2024-11-29 05:49] VITALS: BMI 22.0
[2024-11-29 07:06] LABS: Blood Urea Nitrogen 48 mg/dl (7-17); Calcium 8.5 mg/dl (8.4-10.2); Carbon Dioxide 29 mmol/L (22-30); Chloride 104 mmol/L (98-107); Estimated Creatinine Clearance 27 ml/min; Glucose 103 mg/dl (70-99); Potassium 3.4 mmol/L (3.5-5.1); Sodium 142 mmol/L (135-145); eGFR 45.19
[2024-11-29 07:45] VITALS: BP 154/81
[2024-11-29] MEDS: ENTRESTO 24 MG/26 MG 1 TAB PO ×2 (07:54→20:15)
[2024-11-29] MEDS: ZOLOFT 100 MG PO (07:54)
[2024-11-29] MEDS: TRUSOPT 2% OPHTHALMIC SOLUTION 1 DROP BOTH EYES ×2 (07:55→20:16)
[2024-11-29] MEDS: ZOLOFT 25 MG PO (07:55)
[2024-11-29] MEDS: TIMOPTIC 0.5% OPHTHALMIC SOLUTION 1 DROP BOTH EYES ×2 (07:55→20:15)
[2024-11-29] MEDS: KCL 40 MEQ PO ×2 (07:55→11:10)
[2024-11-29] MEDS: FARXIGA 10 MG PO (07:55)
[2024-11-29] MEDS: PROTONIX 40 MG PO (07:55)
[2024-11-29] MEDS: LASIX 40 MG IV ×2 (07:55→16:12)
--- NOTE | 2024-11-29 08:12 | W.PN.CD ---
Today's Communication / Plan
-
continue diuretic
weights trending down
monitor weights and renal function
wean O2 as tolerated. Was not on O2 at home. when O2 weaned off then consider transition to oral diuretic
Impression / Plan
-
84-year-old female with CHF (followed by her primary Validation Consultant at [facility]) admitted with CHF exacerbation
Acute on chronic heart failure with reduced ejection fraction
- The patient's echocardiogram this admission revealed an LVEF of 15-20%, moderate to severe MR/TR, and moderate AR.
- The patient appears to be a poor candidate for any aggressive measures/workup.
- Minimal troponin elevation is most likely secondary to acute nonischemic myocardial injury in the setting of CHF exacerbation.
- Continue Furosemide 40 mg BID; possible transition to PO diuretic in the next 1-2 days.
- Conservative cardiac management is recommended overall; palliative care/hospice seems appropriate.
Primary hypertension
- Stable/controlled with diuresis.
GERD
- Management as per primary team.
Physical Exam
Vital Signs/Labs
Vital Signs
Temp Pulse Resp BP Pulse Ox
97.8 F 75 20 154/81 97
11/29/24 03:15 11/29/24 07:54 11/29/24 03:15 11/29/24 07:54 11/29/24 03:15
11/28/24 11/29/24 11/30/24
06:59 06:59 06:59
Actual Weight 52.73 kg
11/28/24 06:22
11/29/24 05:45
Magnesium 1.8 mg/dl (1.6-2.3) 11/28/24 06:22
11/25/24
13:08
Xkm-R-Iahlmzzfpfn Pept > [id number]
LAB Results
11/26/24
12:34
Troponin I Cancelled
Physical Exam
Constitutional: No acute distress
Cardiovascular: Rhythm & rate is regular
Respiratory: Rhonchi Absent
GI: Soft, Non tender and Normal bowel sounds
Neuro/Psych: Alert
Other: Other (small degeee of lower leg edema)
Data Reviewed
-
Date of Service: November 29, 2024
Medical Decision Making: Reviewed Test Results
EKG: Report Reviewed by me
X-Ray/CT/US/MRI/NUC/PET: Report Reviewed by me
Medical Tests (PFT, Pathology etc): Report Reviewed by me
Labs: Labs Reviewed by me
[2024-11-29] MEDS: ZOFRAN 4 MG IV (08:13)
--- NOTE | 2024-11-29 10:41 | CHAP ---
Emotional and spiritual support provided. Meat Washer request relayed to on-call slag skimmer at patient and family's request.
--- NOTE | 2024-11-29 10:42 | W.PN.HOSP.TC ---
Today's Communication/Plan
-
see plan
Assessment / Plan
Assessment / Plan
Gen: NAD, awake and alert, appears chronically ill and malnourished
Eyes: EOMI, PERRLA, no scleral icterus.
Neck: supple. +JVD to angle of the mandible
CV: RRR, +S1/S2, no m/r/g.
Resp: CTAB anteriorly, no rales, wheezes, or rhonchi.
Abd: +BS, soft, NT, ND
Skin: No rashes. 2-3+ B/L LE edema
Neuro: CN 2-12 intact, non-focal.
Psych: flat affect.
CT A/P: Marked edematous changes of the posterior/lateral abdominal and pelvic christina, left greater than right without discrete finding to suggest a posterior abdominal wall focal hematoma although evaluation limited. Grossly intact solid organs of
the abdomen. Symmetric renal excretion. Mild hepatomegaly. Subcentimeter low-attenuation left renal lesion too small to characterize. Small volume ascites. At least moderate right and small left pleural effusions, partially included on this study.
Aerated portions of lungs contain some nonspecific mild groundglass opacities. Heterogeneous appearance of the uterus. Cannot exclude space-occupying lesion. Cardiomegaly.
Echo: EF 15-20%, Severe global hypokinesis with septal dyskinesis. Normal right ventricular size. Low normal right ventricular systolic and function. Severely dilated left atrium. Severely dilated right atrium. Moderate to severe mitral
regurgitation. Aortic sclerosis without stenosis. Moderate aortic regurgitation. Moderate to severe tricuspid regurgitation. Estimated pulmonary artery pressure of 60-65 mmHg. The IVC is dilated and does not collapse.
CXR 11/25/24: Suspect mild CHF. Small bilateral pleural effusions with associated atelectasis and/or pneumonia. Cannot rule out component of underlying chronic interstitial lung disease.
Acute on chronic HFrEF:
-echo/CXR above
-cardiology following and notes she is poor candidate for any aggressive measures or workup
-cont IV lasix, daily wts, I/Os
-cont BB/Farxiga/Entresto
-elevated troponin likely nonischemic myocardial injury due to acute on chronic HFrEF
-family had been interested in hospice, hospice c/s placed
Persistent nausea and vomiting:
-likely due to GI tract passive congestion from acute HFrEF
-CT A/P above
-family is requesting Reglan as needed. I did explain the potential risks of extrapyramidal side effects. Patient's family verbally acknowledged understanding of this.
Other problems:
Hypokalemia, replete
Essential HTN: cont Entresto/BB
Depression: cont Zoloft
GERD: cont Pepcid/PPI
CKD3a
PT/OT
DNR/Lovenox
Anticipated Discharge: > 48 hours
Subjective/Interval History
-
Date of Service: November 29, 2024
Patient reports continued shortness of breath.
Objective Data
-
Labs:
Laboratory Results
11/29/24
05:45
Sodium 142
Potassium 3.4 L
Chloride 104
Carbon Dioxide 29
BUN 48 H
Creatinine 1.2 H
Glucose 103 H
Calcium 8.5
Vital Signs:
Vital Signs
Temp Pulse Resp BP Pulse Ox
97.7 F 75 18 154/81 98
11/29/24 07:45 11/29/24 07:54 11/29/24 07:45 11/29/24 07:54 11/29/24 09:55
I&O
11/28/24 11/29/24 11/30/24
06:59 06:59 06:59
Intake Total 360 / 360 640 / 640
Output Total 100 / 100
Balance 360 / 360 540 / 540
[2024-11-29 11:15] VITALS: BP 133/76
[2024-11-29 15:20] VITALS: BP 113/72
--- NOTE | 2024-11-29 16:00 | CHAP ---
Fr. Kaz Logan of [facility] in [place] anointed Yisel and gave her Holy Communion.
[2024-11-29] MEDS: LOVENOX 30 MG SC (17:15)
[2024-11-29] MEDS: REGLAN 10 MG IV (17:20)
[2024-11-29] MEDS: TYLENOL 650 MG PO (17:55)
[2024-11-29 20:07] VITALS: BP 125/83
[2024-11-29] MEDS: TOPROL XL 25 MG PO (20:15)
[2024-11-29] MEDS: XALATAN OPHTHALMIC SOLUTION 1 DROP BOTH EYES (21:29)
[2024-11-29 23:21] VITALS: BP 118/65
[2024-11-30] VITALS (9 sets, daily range): BP systolic 115–136; BP diastolic 65–85; PULSE 73; O2SAT 100; BMI 21.8
--- NOTE | 2024-11-30 07:37 | W.PN.CD ---
Addendum entered and electronically signed by Raulito Alicea MD 11/30/24 07:57:
check am labs including renal profile and TSH
Original Note:
Today's Communication / Plan
-
wean O2
If able to wean off then will transtion to oral diuretic
will obtain records from [facility]. patient and family surprised by degreeof CM but patietns medical regimen consistent with histoy of CM
would defer to primary team regarding weight loss.
Impression / Plan
-
84-year-old female with CHF (followed by her primary Core Drill Operator Helper at [facility]) admitted with CHF exacerbation
Acute on chronic heart failure with reduced ejection fraction
- The patient's echocardiogram this admission revealed an LVEF of 15-20%, moderate to severe MR/TR, and moderate AR.
- The patient appears to be a poor candidate for any aggressive measures/workup.
- Minimal troponin elevation is most likely secondary to acute nonischemic myocardial injury in the setting of CHF exacerbation.
[facility] Daughter seemed surprised yesterday regarding degree of mothers cardiomyopathy
Primary hypertension
- Stable/controlled with diuresis.
.
weight loss. -In speaking with patient and daughter it appears patietn has had about 10lb weight loss in 6 months and has gotten weaker. Not clear that all of this is related to CM
.
GERD
- Management as per primary team.
Physical Exam
Vital Signs/Labs
Vital Signs
Temp Pulse Resp BP Pulse Ox
97.6 F 67 18 124/72 98
11/30/24 03:18 11/30/24 03:18 11/30/24 03:18 11/30/24 03:18 11/30/24 03:18
11/29/24 11/30/24 12/01/24
06:59 06:59 06:59
Actual Weight 52.73 kg 52.39 kg
11/28/24 06:22
11/29/24 05:45
Magnesium 1.8 mg/dl (1.6-2.3) 11/28/24 06:22
11/25/24
13:08
Jmu-L-Mbaxplkdkbu Pept > [id number]
Physical Exam
Constitutional: No acute distress
Cardiovascular: Rhythm & rate is regular
Respiratory: Wheeze Absent and Rhonchi Absent
GI: Soft, Non tender and Normal bowel sounds
Neuro/Psych: Alert
Data Reviewed
-
Date of Service: November 30, 2024
Medical Decision Making: Reviewed Test Results
EKG: Report Reviewed by me
Medical Tests (PFT, Pathology etc): Report Reviewed by me
Labs: Labs Reviewed by me
[2024-11-30] MEDS: ZOLOFT 100 MG PO (09:19)
[2024-11-30] MEDS: PROTONIX 40 MG PO (09:19)
[2024-11-30] MEDS: ENTRESTO 24 MG/26 MG 1 TAB PO ×2 (09:20→20:33)
[2024-11-30] MEDS: ZOLOFT 25 MG PO (09:20)
[2024-11-30] MEDS: TRUSOPT 2% OPHTHALMIC SOLUTION 1 DROP BOTH EYES ×2 (09:21→20:29)
[2024-11-30] MEDS: TIMOPTIC 0.5% OPHTHALMIC SOLUTION 1 DROP BOTH EYES ×2 (09:21→20:29)
[2024-11-30 09:40] LABS: Albumin 3.7 g/dl (3.5-5.0); Blood Urea Nitrogen 51 mg/dl (7-17); Calcium 8.6 mg/dl (8.4-10.2); Carbon Dioxide 25 mmol/L (22-30); Chloride 107 mmol/L (98-107); Estimated Creatinine Clearance 25 ml/min; Glucose 104 mg/dl (70-99); Phosphorus 3.4 mg/dl (2.5-4.5); Potassium 4.9 mmol/L (3.5-5.1); Sodium 140 mmol/L (135-145); eGFR 41.06
[2024-11-30] MEDS: LASIX 40 MG IV ×2 (10:08→17:13)
[2024-11-30] MEDS: FARXIGA 10 MG PO (10:09)
[2024-11-30] MEDS: KCL 40 MEQ PO (10:09)
[2024-11-30 10:15] LABS: Cortisol, Random 29.6 ug/dl
[2024-11-30 10:43] LABS: Free T4 1.32 ng/dl (0.78-2.19)
--- NOTE | 2024-11-30 11:48 | W.PN.HOSP.TC ---
Today's Communication/Plan
-
see plan
Assessment / Plan
Assessment / Plan
Gen: NAD, awake and alert, appears chronically ill and malnourished
Eyes: EOMI, PERRLA, no scleral icterus.
Neck: supple. mild JVD in the upgright position
CV: RRR, +S1/S2, no m/r/g.
Resp: decreased BS in the bases
Abd: +BS, soft, NT, ND
Skin: No rashes. 2+ B/L LE edema
Neuro: CN 2-12 intact, non-focal.
Psych: flat affect.
CT A/P: Marked edematous changes of the posterior/lateral abdominal and pelvic christina, left greater than right without discrete finding to suggest a posterior abdominal wall focal hematoma although evaluation limited. Grossly intact solid organs of
the abdomen. Symmetric renal excretion. Mild hepatomegaly. Subcentimeter low-attenuation left renal lesion too small to characterize. Small volume ascites. At least moderate right and small left pleural effusions, partially included on this study.
Aerated portions of lungs contain some nonspecific mild groundglass opacities. Heterogeneous appearance of the uterus. Cannot exclude space-occupying lesion. Cardiomegaly.
Echo: EF 15-20%, Severe global hypokinesis with septal dyskinesis. Normal right ventricular size. Low normal right ventricular systolic and function. Severely dilated left atrium. Severely dilated right atrium. Moderate to severe mitral
regurgitation. Aortic sclerosis without stenosis. Moderate aortic regurgitation. Moderate to severe tricuspid regurgitation. Estimated pulmonary artery pressure of 60-65 mmHg. The IVC is dilated and does not collapse.
CXR 11/25/24: Suspect mild CHF. Small bilateral pleural effusions with associated atelectasis and/or pneumonia. Cannot rule out component of underlying chronic interstitial lung disease.
Acute on chronic HFrEF:
-echo/CXR above
-cardiology following and notes she is poor candidate for any aggressive measures or workup
-cont IV lasix, daily wts, I/Os
-cont BB/Farxiga/Entresto
-elevated troponin likely nonischemic myocardial injury due to acute on chronic HFrEF
-at this time the pt and family are not interested in hospice
Persistent nausea and vomiting:
-likely due to GI tract passive congestion from acute HFrEF
-CT A/P above
-family requested Reglan PRN. On 11/29/24 I did explain the potential risks of extrapyramidal side effects. Patient's family verbally acknowledged understanding of this.
Other problems:
Hypokalemia, resolved
Essential HTN: cont Entresto/BB
Depression: cont Zoloft
GERD: cont Pepcid/PPI
CKD3a
PT/OT
DNR/Lovenox
Anticipated Discharge: 24 - 48 hours
Subjective/Interval History
-
Date of Service: November 30, 2024
Denies CP/SOB.
Objective Data
-
Labs:
Laboratory Results
11/30/24
08:48
Sodium 140
Potassium 4.9 D
Chloride 107
Carbon Dioxide 25
BUN 51 H
Creatinine 1.3 H
Glucose 104 H
Calcium 8.6
Vital Signs:
Vital Signs
Temp Pulse Resp BP Pulse Ox
98.5 F 72 18 125/70 96
11/30/24 11:46 11/30/24 11:46 11/30/24 11:46 11/30/24 11:46 11/30/24 11:46
I&O
11/29/24 11/30/24 12/01/24
06:59 06:59 06:59
Intake Total 640 / 640 1020 / 1020
Output Total 100 / 100
Balance 540 / 540 1020 / 1020
[2024-11-30] MEDS: LOVENOX 30 MG SC (17:13)
[2024-11-30] MEDS: TOPROL XL 25 MG PO (20:29)
[2024-11-30] MEDS: XALATAN OPHTHALMIC SOLUTION 1 DROP BOTH EYES (21:19)
[2024-11-30] MEDS: PEPCID 20 MG PO (21:19)
[2024-12-01] VITALS (7 sets, daily range): BP systolic 101–138; BP diastolic 60–79; PULSE 71; O2SAT 94; BMI 21.9
--- NOTE | 2024-12-01 08:32 | W.PN.CD ---
Today's Communication / Plan
-
Records requested yesterday from [facility] and [facility] and not received. I called to Dr Kaufman this morning. They had an echo from 2021 with normal LVF. Unclear if there are any additonal echos at [facility] between 2021 and this hospitalization. They
will be sending records this morning and I also left a message to have Dr Gonzalez contact me
.
If this is truly anew cardiomyopathy in a patient that was more independent 6 months ago and was the primary boardmarker for her then I would consider Right and left heart cath
Impression / Plan
-
84-year-old female with CHF (followed by her primary Centrifugal Station Operator at [facility]) admitted with CHF exacerbation
Acute on chronic heart failure with reduced ejection fraction
- The patient's echocardiogram this admission revealed an LVEF of 15-20%, moderate to severe MR/TR, and moderate AR.
- Minimal troponin elevation is most likely secondary to acute nonischemic myocardial injury in the setting of CHF exacerbation.
- Daughter seemed surprised yesterday regarding degree of mothers cardiomyopathy. Records requested yesterday from [facility] and [facility] and not received. I called to Dr Kaufman this morning. They had an echo from 2021 with normal LVF. Unclear if
there are any additonal echos at [facility] between 2021 and this hospitalization. They will be sending records this morning and I also left a message to have Dr Gonzalez contact me
- patient still wtih edema bilat and bilat pleural effusions. Now of O2. Appears she still nees diuresis but creatinine trendng up
-If this is truly anew cardiomyopathy in a patient that was more independent 6 months ago and was the primary boardmarker for her then I would consider Right and left heart cath
PLeural effusions\\
- abd CT at least mod on right and smallon right
Primary hypertension
- Stable/controlled with diuresis.
.
weight loss. -In speaking with patient and daughter it appears patimagon has had about 10lb weight loss in 6 months and has gotten weaker. Not clear that all of this is related to CM
Abd CT. Marked edematous changes of the posterior/lateral abdominal and pelvic christina, left greater than right without discrete finding to suggest a posterior abdominal wall focal hematoma although evaluation limited.Bilat pleural effusions
.
GERD
- Management as per primary team.
Physical Exam
Vital Signs/Labs
Vital Signs
Temp Pulse Resp BP Pulse Ox
97.7 F 80 18 138/79 97
12/01/24 08:21 12/01/24 08:21 12/01/24 08:21 12/01/24 08:21 12/01/24 08:21
11/30/24 12/01/24 12/02/24
06:59 06:59 06:59
Actual Weight 52.39 kg
11/28/24 06:22
11/30/24 08:48
Magnesium 1.8 mg/dl (1.6-2.3) 11/28/24 06:22
Free T4 1.32 ng/dl (0.78-2.19) 11/30/24 08:48
11/25/24
13:08
Jjj-U-Vqetufoupny Pept > [id number]
Physical Exam
Constitutional: No acute distress
EENT: Anicteric
Cardiovascular: Rhythm & rate is regular
Respiratory: Wheeze Absent, Rhonchi Absent and Other (decrased at bases)
GI: Soft and Non tender
Neuro/Psych: Alert
Other: Other (bilat lower extremity edema)
Data Reviewed
-
Date of Service: December 01, 2024
Medical Decision Making: Reviewed Test Results
EKG: Report Reviewed by me
Medical Tests (PFT, Pathology etc): Report Reviewed by me
Labs: Labs Reviewed by me
[2024-12-01] MEDS: FARXIGA 10 MG PO (09:26)
[2024-12-01] MEDS: KCL 40 MEQ PO (09:26)
[2024-12-01] MEDS: ENTRESTO 24 MG/26 MG 1 TAB PO ×2 (09:26→19:52)
[2024-12-01] MEDS: PROTONIX 40 MG PO (09:26)
[2024-12-01] MEDS: ZOLOFT 25 MG PO (09:26)
[2024-12-01] MEDS: TRUSOPT 2% OPHTHALMIC SOLUTION 1 DROP BOTH EYES ×2 (09:27→19:58)
[2024-12-01] MEDS: TIMOPTIC 0.5% OPHTHALMIC SOLUTION 1 DROP BOTH EYES ×2 (09:27→19:58)
[2024-12-01] MEDS: ZOLOFT 100 MG PO (09:27)
[2024-12-01] MEDS: REGLAN 10 MG IV (10:00)
--- NOTE | 2024-12-01 10:06 | CM ---
Patient seen at bedside with daughter in [facility]. Patient daughter was told that [facility] had a bed but per [facility] patient was declined. CM called to Liaison and she stated a bed had come available and patient was accepted. Liaison to change
status in [facility] and patient physician updated. CM will continue to follow for discharge planning needs.
Plan; SNF; [facility] today
--- NOTE | 2024-12-01 10:10 | W.PN.UPDATE ---
Update Note
Progress Note Update
Conversation with Dr. Gonzalez. He had seen her in October. She has had issues with edema that has persisted despite discontinuing amlodipine. So she has a chronic component of edema. Cardiomyopathy however is a new diagnosis. Last echocardiogram in
2021 with normal left ventricular function she reportedly had a nuclear stress in 2021. overall appears to have new cardiomyopathy.
- Hold IV diuretic
- repeat labs renal function today and tomorrow
- would consider right and left heart catheterization however timing of left heart catheterization will be dependent on renal function.
--- NOTE | 2024-12-01 10:11 | W.PN.HOSP.TC ---
Today's Communication/Plan
-
see plan
Assessment / Plan
Assessment / Plan
CV: Remains RRR, +S1/S2, no m/r/g.
Resp: CTAB anteriorly
Abd: +BS, soft, NT, ND
Skin: No rashes. remains 2+ B/L LE edema
CT A/P: Marked edematous changes of the posterior/lateral abdominal and pelvic christina, left greater than right without discrete finding to suggest a posterior abdominal wall focal hematoma although evaluation limited. Grossly intact solid organs of
the abdomen. Symmetric renal excretion. Mild hepatomegaly. Subcentimeter low-attenuation left renal lesion too small to characterize. Small volume ascites. At least moderate right and small left pleural effusions, partially included on this study.
Aerated portions of lungs contain some nonspecific mild groundglass opacities. Heterogeneous appearance of the uterus. Cannot exclude space-occupying lesion. Cardiomegaly.
Echo: EF 15-20%, Severe global hypokinesis with septal dyskinesis. Normal right ventricular size. Low normal right ventricular systolic and function. Severely dilated left atrium. Severely dilated right atrium. Moderate to severe mitral
regurgitation. Aortic sclerosis without stenosis. Moderate aortic regurgitation. Moderate to severe tricuspid regurgitation. Estimated pulmonary artery pressure of 60-65 mmHg. The IVC is dilated and does not collapse.
CXR 11/25/24: Suspect mild CHF. Small bilateral pleural effusions with associated atelectasis and/or pneumonia. Cannot rule out component of underlying chronic interstitial lung disease.
Acute on chronic HFrEF:
-With acute hypoxic respiratory insufficiency, was on 2L NC O2, now on RA
-echo/CXR above
-cardiology following and notes she is poor candidate for any aggressive measures or workup
-was diuresed with IV lasix
-daily wts, I/Os
-cont BB/Farxiga/Entresto
-elevated troponin likely nonischemic myocardial injury due to acute on chronic HFrEF
-at this time the pt and family are not interested in hospice
-as per cardiology, RHC and LHC to be done pending Cr
Persistent nausea and vomiting:
-likely due to GI tract passive congestion from acute HFrEF
-CT A/P above
-family requested Reglan PRN. On 11/29/24 I did explain the potential risks of extrapyramidal side effects. Patient's family verbally acknowledged understanding of this.
Other problems:
Hypokalemia, resolved
Essential HTN: cont Entresto/BB
Depression: cont Zoloft
GERD: cont Pepcid/PPI
CKD3a
Family updated at bedside
PT/OT
DNR/Lovenox
Total time spent on today's encounter was 50 minutes which included time spent in counseling the patient/family regarding diagnosis and treatment plan as listed above, goals of care, and symptom management. Case was discussed with nursing staff,
specialists, and care coordinators/case management. All labs and imaging personally reviewed by me. Remainder the time spent in detailed review of previous records, lab data, imaging, and other medical provider documentation.
Anticipated Discharge: > 48 hours
Subjective/Interval History
-
Date of Service: December 01, 2024
Patient sleeping
Objective Data
-
Labs:
Laboratory Results
12/01/24
10:09
Sodium Pending
Potassium Pending
Chloride Pending
Carbon Dioxide Pending
BUN Pending
Creatinine Pending
Glucose Pending
Calcium Pending
Vital Signs:
Vital Signs
Temp Pulse Resp BP Pulse Ox
97.7 F 80 18 138/79 97
12/01/24 08:21 12/01/24 09:26 12/01/24 08:21 12/01/24 09:26 12/01/24 08:21
I&O
11/30/24 12/01/24 12/02/24
06:59 06:59 06:59
Intake Total 1020 / 1020 360 / 360
Output Total 700 / 700
Balance 1020 / 1020 -340 / -340
[2024-12-01] MEDS: LASIX IV (10:56)
[2024-12-01 11:45] LABS: Albumin 3.8 g/dl (3.5-5.0); Blood Urea Nitrogen 47 mg/dl (7-17); Calcium 8.7 mg/dl (8.4-10.2); Carbon Dioxide 27 mmol/L (22-30); Chloride 103 mmol/L (98-107); Estimated Creatinine Clearance 25 ml/min; Glucose 142 mg/dl (70-99); Potassium 4.6 mmol/L (3.5-5.1); Sodium 139 mmol/L (135-145); eGFR 41.06
--- NOTE | 2024-12-01 14:32 | W.PN.UPDATE ---
Update Note
Progress Note Update
Additional discussion with her primary soft sugar operator head Dr. Gonzalez who reports that the last ejection fraction he had from 2021 was normal. Cardiomyopathy would be a new diagnosis. He states he did see her back in October she has had some issues with
chronic edema that persisted even though they stopped amlodipine. he also agreed with plans for right and left heart catheterization. this possibility was discussed earlier in the day with both patient and her daughter. I also called the
daughter today to update her on my conversations with Dr. Gonzalez. Plan for right and left heart catheterization tomorrow. However renal function will need to be assessed in a.m.
note IV Lasix currently discontinued. Will assess dosing of Lasix tomorrow.
[2024-12-01] MEDS: LOW STRENGTH ASPIRIN 324 MG PO (15:24)
[2024-12-01] MEDS: LOVENOX 30 MG SC (17:43)
[2024-12-01] MEDS: TYLENOL 650 MG PO (19:52)
[2024-12-01] MEDS: TOPROL XL 25 MG PO (19:53)
[2024-12-01] MEDS: MELATONIN 3 MG PO (20:32)
[2024-12-01] MEDS: XALATAN OPHTHALMIC SOLUTION 1 DROP BOTH EYES (21:46)
[2024-12-02] VITALS (24 sets, daily range): BP systolic 112–131; BP diastolic 48–90; PULSE 69–70; O2SAT 92–93; BMI 22.1
[2024-12-02 07:51] LABS: Hematocrit 32.5 % (37.0-47.0); Hemoglobin 11.8 g/dL (12.0-16.0); Mean Corp Hgb Conc. 36.3 g/dL (33.0-37.0); Mean Corpuscular Hgb 41.5 pg (27.0-31.0); Mean Corpuscular Volume 114.4 fL (81.0-99.0); Mean Platelet Volume 10.8 fL (7.4-10.4); Platelet Count 200 10^3/uL (130-400); Red Blood Cell Count 2.84 10^6/uL (4.20-5.40); Red Cell Dist. Width 22.1 % (11.5-14.5); White Blood Cell Count 4.8 10^3/uL (4.8-10.8)
[2024-12-02] MEDS: LOW STRENGTH ASPIRIN 81 MG PO (08:17)
[2024-12-02] MEDS: ZOLOFT 25 MG PO (08:17)
[2024-12-02] MEDS: FARXIGA 10 MG PO (08:17)
[2024-12-02] MEDS: ENTRESTO 24 MG/26 MG 1 TAB PO ×2 (08:17→20:19)
[2024-12-02] MEDS: ZOLOFT 100 MG PO (08:18)
[2024-12-02] MEDS: PROTONIX 40 MG PO (08:18)
[2024-12-02] MEDS: TIMOPTIC 0.5% OPHTHALMIC SOLUTION 1 DROP BOTH EYES ×2 (08:19→20:20)
[2024-12-02] MEDS: TRUSOPT 2% OPHTHALMIC SOLUTION 1 DROP BOTH EYES ×2 (08:19→20:21)
[2024-12-02 09:12] LABS: Albumin 3.5 g/dl (3.5-5.0); Blood Urea Nitrogen 48 mg/dl (7-17); Carbon Dioxide 31 mmol/L (22-30); Chloride 104 mmol/L (98-107); Estimated Creatinine Clearance 25 ml/min; Glucose 104 mg/dl (70-99); Potassium 4.5 mmol/L (3.5-5.1); Sodium 142 mmol/L (135-145); eGFR 41.06
--- NOTE | 2024-12-02 09:59 | W.PN.CD ---
Today's Communication / Plan
-
resp status stable
renal function stable last 3 days at 1.3
Hold lasix until addtional information from RHC
Planffor left and right heart cath today
Impression / Plan
-
84-year-old female with CHF (followed by her primary Assembly Manager at [facility]) admitted with CHF exacerbation
Acute on chronic heart failure with reduced ejection fraction
- The patient's echocardiogram this admission revealed an LVEF of 15-20%, moderate to severe MR/TR, and moderate AR.
- Minimal troponin elevation is most likely secondary to acute nonischemic myocardial injury in the setting of CHF exacerbation.
- patient still with edema bilat and bilat pleural effusions. Now of O2. Appears she still needs diuresis but creatinine 1.3. Amisha has chronic edema per advertising coordinator. Will await RHC
-New cardiomyopathy - Reviewed with her primary advertising coordinator. Last echo 2021 with normal LVF. Rochelle last visit was in October.
- Reviewed issues with rochelle and daughters. Plan for right andleft heart cath. procedure and risks reviewed and amisha in agreement.
.
PLeural effusions\\
- abd CT at least mod on right and smallon right
Primary hypertension
- Stable/controlled with diuresis.
.
weight loss. -In speaking with patient and daughter it appears amisha has had about 10lb weight loss in 6 months and has gotten weaker. Not clear that all of this is related to CM
Abd CT. Marked edematous changes of the posterior/lateral abdominal and pelvic christina, left greater than right without discrete finding to suggest a posterior abdominal wall focal hematoma although evaluation limited.Bilat pleural effusions
.
GERD
- Management as per primary team.
Physical Exam
Vital Signs/Labs
Vital Signs
Temp Pulse Resp BP Pulse Ox
97.5 F 69 20 125/75 95
12/02/24 08:11 12/02/24 08:17 12/02/24 08:11 12/02/24 08:17 12/02/24 08:11
12/01/24 12/02/24 12/03/24
06:59 06:59 06:59
Actual Weight 53.07 kg
12/02/24 07:26
12/02/24 08:17
Magnesium 1.8 mg/dl (1.6-2.3) 11/28/24 06:22
Free T4 1.32 ng/dl (0.78-2.19) 11/30/24 08:48
11/25/24
13:08
[id number]-M-Hxkuclvckdn Pept > [id number]
Physical Exam
Constitutional: No acute distress
Cardiovascular: Rhythm & rate is regular
Respiratory: Lungs clear to auscul., Wheeze Absent and Rhonchi Absent
GI: Soft
Neuro/Psych: Alert and Other (bilat lower extremty edema)
Other: Skin
Data Reviewed
-
Date of Service: December 02, 2024
Medical Decision Making: Reviewed Test Results
Echo: Report Reviewed by me
Medical Tests (PFT, Pathology etc): Report Reviewed by me
Labs: Labs Reviewed by me
[2024-12-02] MEDS: NSS 500 IV (10:23)
[2024-12-02] MEDS: KCL 40 MEQ PO (10:23)
--- NOTE | 2024-12-02 10:57 | W.PN.HOSP.TC ---
Today's Communication/Plan
-
see plan
Assessment / Plan
Assessment / Plan
Gen: NAD, Awake and alert, appears chronically ill
Eyes: EOMI, PERRLA, no scleral icterus.
Neck: supple. +JVD
CV: RRR, +S1/S2, no m/r/g.
Resp: CTAB anteriorly, no rales, wheezes, or rhonchi.
Abd: +BS, soft, NT, ND
Skin: No rashes. 1-2+ B/L LE edema
Neuro: CN 2-12 intact, non-focal.
Psych: Normal mood and affect.
CT A/P: Marked edematous changes of the posterior/lateral abdominal and pelvic christina, left greater than right without discrete finding to suggest a posterior abdominal wall focal hematoma although evaluation limited. Grossly intact solid organs of
the abdomen. Symmetric renal excretion. Mild hepatomegaly. Subcentimeter low-attenuation left renal lesion too small to characterize. Small volume ascites. At least moderate right and small left pleural effusions, partially included on this study.
Aerated portions of lungs contain some nonspecific mild groundglass opacities. Heterogeneous appearance of the uterus. Cannot exclude space-occupying lesion. Cardiomegaly.
Echo: EF 15-20%, Severe global hypokinesis with septal dyskinesis. Normal right ventricular size. Low normal right ventricular systolic and function. Severely dilated left atrium. Severely dilated right atrium. Moderate to severe mitral
regurgitation. Aortic sclerosis without stenosis. Moderate aortic regurgitation. Moderate to severe tricuspid regurgitation. Estimated pulmonary artery pressure of 60-65 mmHg. The IVC is dilated and does not collapse.
CXR 11/25/24: Suspect mild CHF. Small bilateral pleural effusions with associated atelectasis and/or pneumonia. Cannot rule out component of underlying chronic interstitial lung disease.
Acute on chronic HFrEF:
-With acute hypoxic respiratory insufficiency, was on 2L NC O2, now on RA
-echo/CXR above
-cardiology following and notes she is poor candidate for any aggressive measures or workup
-was diuresed with IV lasix
-daily wts, I/Os
-cont BB/Farxiga/Entresto
-elevated troponin likely nonischemic myocardial injury due to acute on chronic HFrEF
-at this time the pt and family are not interested in hospice
-RHC and LHC today
Persistent nausea and vomiting:
-likely due to GI tract passive congestion from acute HFrEF
-CT A/P above
-family requested Reglan PRN. On 11/29/24 I did explain the potential risks of extrapyramidal side effects. Patient's family verbally acknowledged understanding of this.
Other problems:
Hypokalemia, resolved
Essential HTN: cont Entresto/BB
Depression: cont Zoloft
GERD: cont Pepcid/PPI
CKD3a
Family updated at bedside.
PT/OT
DNR/Lovenox
Total time spent on today's encounter was 51 minutes which included time spent in counseling the patient/family regarding diagnosis and treatment plan as listed above, goals of care, and symptom management. Case was discussed with nursing staff,
specialists, and care coordinators/case management. All labs and imaging personally reviewed by me. Remainder the time spent in detailed review of previous records, lab data, imaging, and other medical provider documentation.
Anticipated Discharge: 24 - 48 hours
Subjective/Interval History
-
Date of Service: December 02, 2024
Denies CP/SOB/abd pain.
Objective Data
-
Labs:
Laboratory Results
12/02/24 12/02/24
07:26 08:17
WBC 4.8
Hgb 11.8 L
Hct 32.5 L
Plt Count 200
Sodium 142
Potassium 4.5
Chloride 104
Carbon Dioxide 31 H
BUN 48 H
Creatinine 1.3 H
Glucose 104 H
Calcium 9.0
Vital Signs:
Vital Signs
Temp Pulse Resp BP Pulse Ox
97.5 F 69 20 125/75 95
12/02/24 08:11 12/02/24 08:17 12/02/24 08:11 12/02/24 08:17 12/02/24 08:11
I&O
12/01/24 12/02/24 12/03/24
06:59 06:59 06:59
Intake Total 360 / 360 900 / 900
Output Total 700 / 700 650 / 650
Balance -340 / -340 250 / 250
--- NOTE | 2024-12-02 14:16 | PN.CDI ---
CDI
- -
CDI:
Physician Documentation Request
Admit Date: 11/25/24 18:09
Dear Doctor Alexandrea,
Please review the following and provide your response in the progress notes.
Clinical Indicators:
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
#...pt reports poor appetite for > 1 month, pt states no energy
#...and no appetite since admission.
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
#...has lost additional weight since admission.
#CBW: 117 lbs 22.1 normal range (12/02), UBW 132 lbs reflective of a 15 lb (12%)
#...in 6 months significant.
#With weight loss of > 10% in 6 months and < 75% estimated needs > 1 month
#...pt meeting AND/ASPEN criteria for moderate protein calorie malnutrition.
Based on the above and your clinical assessment,please provide a diagnosis associated with the above documentation:
Moderate Protein Calorie Malnutrition
Other (please specify)
[place] Criteria (ACP Hospitalist 2017)
2 or more criteria must be present for either
non severe or severe malnutrition
Note that the criteria differs related to the
presence of an acute or chronic illness
Acute Illness Chronic Illness
Energy Intake Non Severe: <75% for >7 days Non Severe: <75% for >1 month
Severe: <50% for >5 days Severe: <75% for >1 month
Weight Loss Non Severe: 1-2% over 1 week Non Severe: 5% over 1 month
5% over 1 month 7.5% over 3 months
7.5% over 3 months 10% over 6 months
1 year N/A 20% over 1 year
Severe: >2% over 1 week Severe: >5% over 1 month
>5% over 1 month >7.5% over 3 months
>7.5% over 3 months >10% over 6 months
1 year N/A >20% over 1 year
Use of terms such as suspected, likely, concern for, or probable (associated with a specific diagnosis that is being evaluated, monitored, or treated as if it exists) are acceptable and can be coded in the inpatient setting, when documented at the
time of discharge.
Thank you,
Ute Jordan RN BSN CCDS
CDI Specialist
Please contact via tiger text
Please use your independent medical judgment in providing your response.
--- NOTE | 2024-12-02 16:47 | PTCARENOTE ---
report given to nurse Crisostomo. Pt's Belongings brought to new room 0912 along with family.
[2024-12-02] MEDS: NSS IV (18:19)
[2024-12-02] MEDS: LASIX 40 MG IV (18:19)
[2024-12-02] MEDS: LASIX 50 IV (18:20)
[2024-12-02] MEDS: LOVENOX 30 MG SC (18:22)
--- NOTE | 2024-12-02 19:20 | ITS.CL.PN ---
Lacemaker - Procedure Note
Procedure
Procedure Note:
CARDIAC CATHETERIZATION REPORT
Date of Procedure: 12/02/2024
Referring: Dr. Raulito Alicea MD
Indication: New cardiomyopathy with severely reduced ejection fraction
PROCEDURE(S)
1. right heart catheterization
2. coronary angiography
ACCESS
1. 6F right radial artery (closure: radial band)
2. 5F right antecubital vein (closure: manual hemostasis)
CATHETERS
1. 5F Dickens-[place]
2. 6F JR4
3. 6F JL3.5
MODERATE SEDATION: 45 minutes of moderate sedation was utilized. An independent biomedical scientist was present to assist with and help manage the patient's level of consciousness and physiologic status.
HEMODYNAMIC DATA
AO 122/67 (mean 88) mmHg
RA 11 mmHg
RV 58/7 (EDP 11) mmHg
PA 58/28 (mean 39) mmHg
PCWP 31 mmHg
SaO2 90.6%
SvO2 46.5%
Hb 12.1 g/dL
CO/CI 2.59/1.72 L/min/m2
SVR 2376 dsc*-5
PVR 3.1 Wood units
CORONARY ANGIOGRAPHY
Dominance: Right
LM: Large, normal
LAD: Large vessel giving rise to a three moderate caliber diagonal branches. There are mild luminal irregularities only.
LCx: Large vessel giving rise to a moderate caliber high rising OM1/ramus, moderate caliber OM2, and small LPL branch. There are mild luminal irregularities only.
RCA: Large vessel giving rise to a moderate caliber RPDA and one moderate caliber RPL branch. There are mild luminal irregularities only.
RADIATION: dose 128 mGy; DAP 16.4 Gy*cm2; fluoroscopy time 11.9 min
CONCLUSIONS
1. Severely elevated biventricular filling pressures and severely reduced cardiac output
2. Mild coronary artery disease in a right dominant system
RECOMMENDATIONS
1. Milrinone assisted diuresis to target 1-2 L negative over next 24 hours with close monitoring of renal function
2. Titration of GDMT for heart failure pending improvement in hemodynamics and stable renal function
3. Primary prevention of coronary artery disease
Copy to: Dr. Raulito Gonzalez MD (poultry farm laborer)
Signed: Joaquim Young MD, PhD
[2024-12-02] MEDS: PRIMACOR 20 MG 100 IV (19:39)
--- NOTE | 2024-12-02 19:46 | PTCARENOTE ---
Pt received post cardiac cath done via right radial artery, right brachial vein and right femoral vein. Radial band in place, venous sites with dry and intact dressings, no sign of bleeding or hematoma. Pt denies discomfort. Additional IV site
placed and furosemide and milrinone infusions started. Pt OOB to the commode with one assist, voiding without difficulty. Telemetry shows sinus rhythm. Plan to diurese pt and monitor closely.
[2024-12-02] MEDS: TOPROL XL 25 MG PO (20:19)
[2024-12-02] MEDS: PEPCID 20 MG PO (20:19)
[2024-12-02] MEDS: MELATONIN 3 MG PO (20:19)
[2024-12-02] MEDS: XALATAN OPHTHALMIC SOLUTION 1 DROP BOTH EYES (20:20)
--- NOTE | 2024-12-02 23:26 | PTCARENOTE ---
Assumed care of the pt @ 1900. Pt is AAOx3 forgetful @ times. SR on the monitor VSS Lasix and Milrinone gtts infusing. Rt radial, brachial, and groin cath site dressing c/d/i. Purewick in place draining yellow urine. Call nation within reach.
[2024-12-03] VITALS (9 sets, daily range): BP systolic 120–129; BP diastolic 56–74; PULSE 75; BMI 21.1
[2024-12-03] MEDS: NSS IV ×3 (01:39→12:47)
[2024-12-03 03:32] LABS: Blood Urea Nitrogen 45 mg/dl (7-17); Calcium 8.4 mg/dl (8.4-10.2); Carbon Dioxide 29 mmol/L (22-30); Chloride 105 mmol/L (98-107); Estimated Creatinine Clearance 30 ml/min; Glucose 121 mg/dl (70-99); Potassium 3.9 mmol/L (3.5-5.1); Sodium 140 mmol/L (135-145); eGFR 50.17
--- NOTE | 2024-12-03 08:15 | W.PN.CD ---
Today's Communication / Plan
-
Continue diuresis.
Case management for SGLT2i/ARNi pricing.
Impression / Plan
-
Impression/Plan: 84-year-old female with NICMO admitted with acute on chronic HFrEF.
#NICMO/Acute on chronic heart failure with reduced ejection fraction
-New cardiomyopathy - Reviewed with her primary die cast supervisor. Last echo 2021 with normal LVEF. Pateint last visit was in October 2024.
-LVEF of 15-20%, moderate to severe MR/TR, and moderate AR.
-Minimal troponin elevation is most likely secondary to acute nonischemic myocardial injury in the setting of CHF exacerbation.
-RHC confirmed severely elevated filling pressures.
-Milrinone/furosemide gtt started. Weight down 2.4 kg.
-GDMT:
-Diuretics: Furosemide gtt.
-Beta tamara: Metoprolol succinate 25 mg daily.
-ACEI/ARB/ARNi: Sacubitril-Valsartan 24-26 mg BID.
-MRA: None.
-SGLT2i: Dapagliflozin 10 mg daily.
-ICD: Not yet indicated.
-Case management consult for dapagliflozin/sacubitril-valsartan pricing.
#LEANDRO
-Acute, improving.
-Amyloidosis/multiple myeloma workup initiated.
#Pleural effusions
-Acute.
-Seen on CT abdomen. At least moderate on right, small on left.
-O2 normal. No role for thoracentesis at this time.
#Primary hypertension
-Chronic, stable.
-Tolerating metoprolol, sacubitril-valsartan.
#Unintentional weight loss
-In speaking with patient and daughter it appears patient has had about 10lb weight loss in 6 months and has gotten weaker.
-Not clear that all of this is related to CM.
-I personally reviewed her RHC tracings - no dip/plateau (square root sign) to suggest constriction/restriction.
-CT abdomen does not show any definitive pathology to suggest occult malignancy, though this is not definitive.
#GERD
-Chronic, stable.
-Management as per primary team.
Critical Care Time = 35 minutes.
Subjective/Interval History:
Cardiac catheterization showed no CAD, severely elevated filling pressures.
Milrinone started to augment diuresis.
Weight is down 2.4 kg.
Creatinine down to 1.1.
DATA:
CT Abdomen/Pelvis, 11/25/2024:
IMPRESSION:
Marked edematous changes of the posterior/lateral abdominal and pelvic christina, left greater than right without discrete finding to suggest a posterior abdominal wall focal hematoma although evaluation limited.
Grossly intact solid organs of the abdomen. Symmetric renal excretion. Mild hepatomegaly. Subcentimeter low-attenuation left renal lesion too small to characterize.
Small volume ascites.
At least moderate right and small left pleural effusions, partially included on this study. Aerated portions of lungs contain some nonspecific mild groundglass opacities.
Heterogeneous appearance of the uterus. Cannot exclude space-occupying lesion.
Cardiomegaly.
Cardiac Catheterization, 12/02/2024:
CONCLUSIONS
1. Severely elevated biventricular filling pressures and severely reduced cardiac output
2. Mild coronary artery disease in a right dominant system
Physical Exam
Vital Signs/Labs
Vital Signs
Temp Pulse Resp BP Pulse Ox
36.5 C 66 16 129/70 93
12/03/24 07:04 12/03/24 07:04 12/03/24 07:04 12/03/24 02:00 12/03/24 07:04
12/01/24 12/02/24 12/03/24
11:59 11:59 11:59
Actual Weight 52.526 kg 53.07 kg 50.6 kg
12/02/24 07:26
12/03/24 02:34
Magnesium 1.8 mg/dl (1.6-2.3) 11/28/24 06:22
Free T4 1.32 ng/dl (0.78-2.19) 11/30/24 08:48
11/25/24
13:08
Dkd-B-Yalttkzhvzv Pept > [id number]
Physical Exam
Constitutional: No acute distress and Comfortable
EENT: Anicteric and Moist mucous membranes
Cardiovascular: Rhythm & rate is regular, JVD pressure is normal, Pedal edema present, S1S2 is normal and Murmur/rub/gallop absent
Respiratory: Respiratory effort normal
GI: Soft, Distention absent, Flat, Non tender and Normal bowel sounds
Neuro/Psych: AO x 3
Other: Cath Site (Right radial/antecubitial access sites are C/D/I.)
Data Reviewed
-
Date of Service: December 03, 2024
Medical Decision Making: Reviewed Test Results, Independent Historian Assessment and Test Interpretation
EKG: Tracing Personally Visualized and interpreted and Report Reviewed by me
Echo: Tracing Personally Visualized and interpreted and Report Reviewed by me
X-Ray/CT/US/MRI/NUC/PET: Image Personally Visualized and interpreted and Report Reviewed by me
Medical Tests (PFT, Pathology etc): Image Personally Visualized and interpreted and Report Reviewed by me
Labs: Labs Reviewed by me
--- NOTE | 2024-12-03 08:41 | W.PN.HOSP.TC ---
Today's Communication/Plan
-
see plan
Assessment / Plan
Assessment / Plan
Gen: NAD, Awake and alert, appears chronically ill
Eyes: EOMI, PERRLA, no scleral icterus.
Neck: supple.
CV: RRR, +S1/S2, no m/r/g.
Resp: CTAB anteriorly, no rales, wheezes, or rhonchi.
Abd: remains +BS, soft, NT, ND
Skin: No rashes. 1+ B/L LE edema
Neuro: CN 2-12 intact, non-focal.
Psych: Normal mood and affect.
CT A/P: Marked edematous changes of the posterior/lateral abdominal and pelvic christina, left greater than right without discrete finding to suggest a posterior abdominal wall focal hematoma although evaluation limited. Grossly intact solid organs of
the abdomen. Symmetric renal excretion. Mild hepatomegaly. Subcentimeter low-attenuation left renal lesion too small to characterize. Small volume ascites. At least moderate right and small left pleural effusions, partially included on this study.
Aerated portions of lungs contain some nonspecific mild groundglass opacities. Heterogeneous appearance of the uterus. Cannot exclude space-occupying lesion. Cardiomegaly.
Echo: EF 15-20%, Severe global hypokinesis with septal dyskinesis. Normal right ventricular size. Low normal right ventricular systolic and function. Severely dilated left atrium. Severely dilated right atrium. Moderate to severe mitral
regurgitation. Aortic sclerosis without stenosis. Moderate aortic regurgitation. Moderate to severe tricuspid regurgitation. Estimated pulmonary artery pressure of 60-65 mmHg. The IVC is dilated and does not collapse.
CXR 11/25/24: Suspect mild CHF. Small bilateral pleural effusions with associated atelectasis and/or pneumonia. Cannot rule out component of underlying chronic interstitial lung disease.
RHC/LHC 12/02/24:
1. Severely elevated biventricular filling pressures and severely reduced cardiac output
2. Mild coronary artery disease in a right dominant system
Acute on chronic HFrEF:
-With acute hypoxic respiratory insufficiency, was on 2L NC O2, now on RA
-echo/CXR above
-was diuresed with IV lasix
-daily wts, I/Os
-cont BB/Farxiga/Entresto
-elevated troponin likely nonischemic myocardial injury due to acute on chronic HFrEF
-RHC and LHC done 12/02/24 as above, pt started on Lasix/milrinone gtts
Persistent nausea and vomiting:
-likely due to GI tract passive congestion from acute HFrEF
-CT A/P above
-family requested Reglan PRN. On 11/29/24 I did explain the potential risks of extrapyramidal side effects. Patient's family verbally acknowledged understanding of this.
Other problems:
Hypokalemia, resolved
Essential HTN: cont Entresto/BB
Depression: cont Zoloft
GERD: cont Pepcid/PPI
CKD3a
Pt's daughter updated at bedside.
PT/OT
DNR/Lovenox
Anticipated Discharge: > 48 hours
Subjective/Interval History
-
Date of Service: December 03, 2024
Pt states she is tired but had no other new complaints.
Objective Data
-
Labs:
Laboratory Results
12/03/24
02:34
Sodium 140
Potassium 3.9
Chloride 105
Carbon Dioxide 29
BUN 45 H
Creatinine 1.1 H
Glucose 121 H
Calcium 8.4
Vital Signs:
Vital Signs
Temp Pulse Resp BP Pulse Ox
97.7 F 66 16 129/70 93
12/03/24 07:04 12/03/24 07:04 12/03/24 07:04 12/03/24 02:00 12/03/24 07:04
I&O
12/02/24 12/03/24 12/04/24
06:59 06:59 06:59
Intake Total 900 / 900 476 / 476
Output Total 650 / 650 3900 / 3900
Balance 250 / 250 -3424 / -3424
[2024-12-03] MEDS: FARXIGA 10 MG PO (08:48)
[2024-12-03] MEDS: LOW STRENGTH ASPIRIN 81 MG PO (08:48)
[2024-12-03] MEDS: PROTONIX 40 MG PO (08:48)
[2024-12-03] MEDS: KCL 40 MEQ PO (08:48)
[2024-12-03] MEDS: ZOLOFT 100 MG PO (08:48)
[2024-12-03] MEDS: ENTRESTO 24 MG/26 MG 1 TAB PO ×2 (08:48→20:53)
[2024-12-03] MEDS: ZOLOFT 25 MG PO (08:48)
[2024-12-03] MEDS: TIMOPTIC 0.5% OPHTHALMIC SOLUTION 1 DROP BOTH EYES ×2 (08:49→20:51)
[2024-12-03] MEDS: TRUSOPT 2% OPHTHALMIC SOLUTION 1 DROP BOTH EYES ×2 (08:49→20:54)
--- NOTE | 2024-12-03 12:16 | CM ---
Addendum entered by Smiley Thomas 12/03/24 14:23:
Telephone call to [facility]missions who confirms bed available on Friday12/06/24. Updated daughter, Brittnee. We reviewed transportation. If she does not need a ambulance, wheelchair van is okay with the family. They are aware of out of pocket
cost. The discharge plan is to go to [facility] home when medically stable and bed stable.
Addendum entered by Smiley Thomas 12/03/24 12:27:
Telephone call to Ashley Ramirez,) to check on co-pay for Farxiga 10 mg po daily. Her co-pay would be $76.00 a month at a retail pharmacy and $76.00 for three month supply via mail order. Reviewed co-pay information with her and she
is agreeable to the co-pay via mail order. Placed the one month free coupon in her red discharge folder.
Original Note:
Reviewed chart. Mrs. Whtie was transferred to IVU. Met with and Mrs. White to review discharge plans. She states she is hoping to go to [facility] prior to returning home. She states prior to admission she resides with her spouse in
the independent section of [facility]. Prior to admission she ambulates with a walker and independent with adls. Telephone call to [facility] admissions to check on bed status. Left message. Telephone call to daughterBrittnee to
update her, left message. Medical work-up in progress. The discharge plan is to go to [facility] when medically stable.
[2024-12-03] MEDS: LOVENOX 30 MG SC (17:54)
[2024-12-03] MEDS: MELATONIN 3 MG PO (20:52)
[2024-12-03] MEDS: TOPROL XL 25 MG PO (20:53)
[2024-12-03] MEDS: XALATAN OPHTHALMIC SOLUTION 1 DROP BOTH EYES (20:59)
[2024-12-03] MEDS: LASIX 50 IV (22:44)
[2024-12-03] MEDS: PRIMACOR 20 MG 100 IV (22:56)
[2024-12-04] VITALS (16 sets, daily range): BP systolic 81–129; BP diastolic 39–76; BMI 18.7; BMI 18.5
--- NOTE | 2024-12-04 01:42 | PTCARENOTE ---
Assumed care on pt @ 1900, aaox3, furosemide and milrinone gtt infusing as per order. SR on the monitor, HR 70's. BP 120/60's. Pt denies any complaints of pain or SOB. T&R q2 while in bed, c/o pain from tailbone area, silicone foam applied for
protection, skin intact with blanchable redness.Call nation within reach.
[2024-12-04 05:45] LABS: Blood Urea Nitrogen 33 mg/dl (7-17); Calcium 8.2 mg/dl (8.4-10.2); Carbon Dioxide 34 mmol/L (22-30); Chloride 99 mmol/L (98-107); Estimated Creatinine Clearance 31 ml/min; Glucose 110 mg/dl (70-99); Potassium 2.9 mmol/L (3.5-5.1); Sodium 139 mmol/L (135-145); eGFR 56.25
--- NOTE | 2024-12-04 06:13 | PTCARENOTE ---
Pt on furesomide and milrinone gtt overnight, total of 2600 cc urine output this shift. K 2.9 with morning lab results, and wt loss 5.8 kg from yesterday. Pt c/o feeling 'sick' when stood up, VSS. train caller VENEER SANDER made aware of lab results and wt loss,
K rider ordered and infusing, will re-obtain wt.
[2024-12-04] MEDS: KCL 270 MEQ IV (06:21)
[2024-12-04] MEDS: ENTRESTO 24 MG/26 MG 1 TAB PO ×2 (08:35→20:12)
[2024-12-04] MEDS: FARXIGA 10 MG PO (08:35)
[2024-12-04] MEDS: LOW STRENGTH ASPIRIN 81 MG PO (08:36)
[2024-12-04] MEDS: ZOLOFT 25 MG PO (08:36)
[2024-12-04] MEDS: ZOLOFT 100 MG PO (08:36)
[2024-12-04] MEDS: TYLENOL 650 MG PO (08:36)
[2024-12-04] MEDS: PROTONIX 40 MG PO (08:36)
[2024-12-04] MEDS: KCL 40 MEQ PO (08:37)
[2024-12-04] MEDS: TRUSOPT 2% OPHTHALMIC SOLUTION 1 DROP BOTH EYES ×2 (08:40→20:11)
[2024-12-04] MEDS: TIMOPTIC 0.5% OPHTHALMIC SOLUTION 1 DROP BOTH EYES ×2 (08:40→20:11)
--- NOTE | 2024-12-04 09:07 | W.PN.HOSP.TC ---
Today's Communication/Plan
-
see plan
Assessment / Plan
Assessment / Plan
Gen: NAD, Awake and alert, appears chronically ill
Eyes: EOMI, PERRLA, no scleral icterus.
Neck: supple.
CV: remains RRR, +S1/S2, no m/r/g.
Resp: remains CTAB anteriorly, no rales, wheezes, or rhonchi.
Abd: continues to remain +BS, soft, NT, ND
Skin: No rashes. trace B/L LE edema
Neuro: CN 2-12 intact, non-focal.
Psych: Normal mood and affect.
CT A/P: Marked edematous changes of the posterior/lateral abdominal and pelvic christina, left greater than right without discrete finding to suggest a posterior abdominal wall focal hematoma although evaluation limited. Grossly intact solid organs of
the abdomen. Symmetric renal excretion. Mild hepatomegaly. Subcentimeter low-attenuation left renal lesion too small to characterize. Small volume ascites. At least moderate right and small left pleural effusions, partially included on this study.
Aerated portions of lungs contain some nonspecific mild groundglass opacities. Heterogeneous appearance of the uterus. Cannot exclude space-occupying lesion. Cardiomegaly.
Echo: EF 15-20%, Severe global hypokinesis with septal dyskinesis. Normal right ventricular size. Low normal right ventricular systolic and function. Severely dilated left atrium. Severely dilated right atrium. Moderate to severe mitral
regurgitation. Aortic sclerosis without stenosis. Moderate aortic regurgitation. Moderate to severe tricuspid regurgitation. Estimated pulmonary artery pressure of 60-65 mmHg. The IVC is dilated and does not collapse.
CXR 11/25/24: Suspect mild CHF. Small bilateral pleural effusions with associated atelectasis and/or pneumonia. Cannot rule out component of underlying chronic interstitial lung disease.
RHC/LHC 12/02/24:
1. Severely elevated biventricular filling pressures and severely reduced cardiac output
2. Mild coronary artery disease in a right dominant system
Acute on chronic HFrEF:
-With acute hypoxic respiratory insufficiency, was on 2L NC O2, now on RA
-echo/CXR above
-was diuresed with IV lasix
-daily wts, I/Os
-cont BB/Farxiga/Entresto
-elevated troponin likely nonischemic myocardial injury due to acute on chronic HFrEF
-RHC and LHC done 12/02/24 as above, pt started on Lasix/milrinone gtts, continue
Persistent nausea and vomiting:
-likely due to GI tract passive congestion from acute HFrEF
-CT A/P above
-family requested Reglan PRN. On 11/29/24 I did explain the potential risks of extrapyramidal side effects. Patient's family verbally acknowledged understanding of this.
Other problems:
Hypokalemia, IV K
Essential HTN: cont Entresto/BB
Depression: cont Zoloft
GERD: cont Pepcid/PPI
CKD3a
Pt's daughter updated at bedside.
PT/OT
DNR/Lovenox
Anticipated Discharge: > 48 hours
Subjective/Interval History
-
Date of Service: December 04, 2024
No new complaints.
Objective Data
-
Labs:
Laboratory Results
12/04/24
04:55
Sodium 139
Potassium 2.9 L D
Chloride 99
Carbon Dioxide 34 H
BUN 33 H
Creatinine 1.0
Glucose 110 H
Calcium 8.2 L
Vital Signs:
Vital Signs
Temp Pulse Resp BP Pulse Ox
97.6 F 69 18 129/67 95
12/04/24 06:50 12/04/24 02:15 12/04/24 06:50 12/04/24 02:00 12/04/24 06:50
I&O
12/03/24 12/04/24 12/05/24
06:59 06:59 06:59
Intake Total 476 / 476 276 / 276
Output Total 3900 / 3900 4825 / 4825 800 / 800
Balance -3424 / -3424 -4549 / -454 - / -800
--- NOTE | 2024-12-04 12:05 | W.PN.CD ---
Today's Communication / Plan
-
Replete K
Stop Lasix drip and transition to intermittent IV dosing
Continue milrinone. Plan to stop tomorrow.
Impression / Plan
-
Impression/Plan: 84-year-old female with NICMO admitted with acute on chronic HFrEF. She is undergoing inotrope assisted diuresis.
#NICMO/Acute on chronic heart failure with reduced ejection fraction
-Severe HF exacerbation with low output state requiring inotrope support and frequent monitoring for drug toxicity.
-New cardiomyopathy - Reviewed with her primary nursing techn. Last echo 2021 with normal LVEF. Patient last visit was in October 2024.
-LVEF of 15-20%, moderate to severe MR/TR, and moderate AR.
-Minimal troponin elevation is most likely secondary to acute nonischemic myocardial injury in the setting of CHF exacerbation.
-RHC confirmed severely elevated filling pressures.
-Milrinone/furosemide gtt started. Weight down 13lb overnight and net neg 4L
-GDMT:
-Diuretics: stop Furosemide gtt. Transition to intermittent dosing
-Beta tamara: Metoprolol succinate 25 mg daily.
-ACEI/ARB/ARNi: Sacubitril-Valsartan 24-26 mg BID.
-MRA: Start Spironolactone 25mg daily
-SGLT2i: Dapagliflozin 10 mg daily.
-ICD: Not yet indicated.
-Case management consult forsacubitril-valsartan pricing. Dapagliflozin is affordable
#LEANDRO
-Acute, improving. Likely due to cardiorenal syndrome
-Amyloidosis/multiple myeloma workup initiated.
#Pleural effusions
-Acute.
-Seen on CT abdomen. At least moderate on right, small on left.
-O2 normal. No role for thoracentesis at this time.
#Primary hypertension
-Chronic, stable.
-Tolerating metoprolol, sacubitril-valsartan.
#GERD
-Chronic, stable.
-Management as per primary team.
Subjective/Interval History:
Feels ok. Complaining of sacral pain. Breathing improved. Peed a ton yesterday.
DATA:
CT Abdomen/Pelvis, 11/25/2024:
IMPRESSION:
Marked edematous changes of the posterior/lateral abdominal and pelvic christina, left greater than right without discrete finding to suggest a posterior abdominal wall focal hematoma although evaluation limited.
Grossly intact solid organs of the abdomen. Symmetric renal excretion. Mild hepatomegaly. Subcentimeter low-attenuation left renal lesion too small to characterize.
Small volume ascites.
At least moderate right and small left pleural effusions, partially included on this study. Aerated portions of lungs contain some nonspecific mild groundglass opacities.
Heterogeneous appearance of the uterus. Cannot exclude space-occupying lesion.
Cardiomegaly.
Cardiac Catheterization, 12/02/2024:
CONCLUSIONS
1. Severely elevated biventricular filling pressures and severely reduced cardiac output
2. Mild coronary artery disease in a right dominant system
Physical Exam
Vital Signs/Labs
Vital Signs
Temp Pulse Resp BP Pulse Ox
98.4 F 76 20 109/76 97
12/04/24 11:19 12/04/24 11:00 12/04/24 11:19 12/04/24 08:46 12/04/24 11:19
12/03/24 12/04/24 12/05/24
06:59 06:59 06:59
Actual Weight 111 lb 8.862 oz 98 lb 12.273 oz 97 lb 14.164 oz
12/02/24 07:26
12/04/24 04:55
Magnesium 1.8 mg/dl (1.6-2.3) 11/28/24 06:22
Free T4 1.32 ng/dl (0.78-2.19) 11/30/24 08:48
11/25/24
13:08
Kly-Z-Vjcuopaphrr Pept > 32116
Physical Exam
Constitutional: No acute distress and Comfortable
Cardiovascular: Rhythm & rate is regular, Pedal edema present, S1S2 is normal and Murmur/rub/gallop absent
Respiratory: Respiratory effort normal and Lungs clear to auscul.
Data Reviewed
-
Date of Service: December 04, 2024
Medical Decision Making: Reviewed Test Results, Independent Historian Assessment, Test Interpretation and Review of Case with other Provider
EKG: Tracing Personally Visualized and interpreted
Echo: Report Reviewed by me
Labs: Labs Reviewed by me
--- NOTE | 2024-12-04 12:32 | PTCARENOTE ---
Pt reweighed on standing scale this morning. She has an approx. 13 lb weight loss overnight. Assisted OOB to BR with RW and also to chair. She has an air cushion on her chair. Optifoam dsgs dry and in place to Pt 's back and sacrum. Pt c/o sacral
discomfort when sitting in a reclined position. Pt's positioned changed frequently while in chair and in bed. IV Lasix drip discontinued. Pt still on Milrinone drip.
[2024-12-04 12:37] LABS: 24 Hour Urine Total Volume Random mL; Urine Collection Length Random hr; Urine Free Kappa Light Chains 79.88 mg/L (0.00-32.90)
[2024-12-04] MEDS: ALDACTONE 25 MG PO (13:34)
[2024-12-04] MEDS: LOVENOX 30 MG SC (17:59)
[2024-12-04] MEDS: TOPROL XL 25 MG PO (20:12)
[2024-12-04] MEDS: XALATAN OPHTHALMIC SOLUTION 1 DROP BOTH EYES (22:34)
[2024-12-04] MEDS: MELATONIN 3 MG PO (22:34)
[2024-12-04] MEDS: PEPCID 20 MG PO (22:34)
[2024-12-05] VITALS (19 sets, daily range): BP systolic 71–113; BP diastolic 42–72; BMI 18.8
[2024-12-05] MEDS: NSS 250 IV ×2 (00:35→04:57)
[2024-12-05 03:12] LABS: Blood Urea Nitrogen 34 mg/dl (7-17); Carbon Dioxide 31 mmol/L (22-30); Chloride 99 mmol/L (98-107); Estimated Creatinine Clearance 30 ml/min; Glucose 126 mg/dl (70-99); Potassium 4.2 mmol/L (3.5-5.1); Sodium 136 mmol/L (135-145); eGFR 56.25
--- NOTE | 2024-12-05 06:25 | PTCARENOTE ---
Received pt @ change of shift. AAOx3, VSS-- NSR with BBB on monitor. Family bedside. Right radial site CDI. Right brachial site CDI, ecchymotic. Right femoral site CDI, ecchymotic. All sites soft to touch, no hematoma. Milrinone gtt running through
left forearm @ 0.125 mcg/min (2mL/hr). Discussed plan of care for evening. Pt requested purewick-- educated increased risk of UTI. Pt agreed to see how night went. Call nation within reach.
~ 0000 Pt rang-- 'feeling off'-- BP was 87/49. Gave her some crackers and juice-- stated she was feeling better. Retook her pressure--79/51
Informed Starr Potter NP. Do not allow to get up. Encourage oral fluids. 250 mL bolus over one hr-- see MAR. BP increased to 92/47.
~0220 Pt's BP 75/42. Informed Starr Potter. Discussed starting a low dose pressor, or stopping/weaning the milrinone earlier than planned. Titrated milrinone down to 0.063 mcg/min (1 mL/hr) @ 0255. Titrated off @ 0355.
Additional 250 mL bolus ordered @ 0440-- see MAR.
[2024-12-05] MEDS: TIMOPTIC 0.5% OPHTHALMIC SOLUTION 1 DROP BOTH EYES ×2 (09:05→20:28)
[2024-12-05] MEDS: PROTONIX 40 MG PO (09:05)
[2024-12-05] MEDS: TRUSOPT 2% OPHTHALMIC SOLUTION 1 DROP BOTH EYES ×2 (09:06→20:28)
--- NOTE | 2024-12-05 09:39 | W.PN.HOSP.TC ---
Today's Communication/Plan
-
see plan
Assessment / Plan
Assessment / Plan
Gen: NAD, Awake and alert, appears chronically ill
Eyes: EOMI, PERRLA, no scleral icterus.
Neck: supple.
CV: remains RRR, +S1/S2, no m/r/g.
Resp: remains CTAB anteriorly, no rales, wheezes, or rhonchi.
Abd: continues to remain +BS, soft, NT, ND
Skin: No rashes. trace B/L LE edema
Neuro: CN 2-12 intact, non-focal.
Psych: Normal mood and affect.
CT A/P: Marked edematous changes of the posterior/lateral abdominal and pelvic christina, left greater than right without discrete finding to suggest a posterior abdominal wall focal hematoma although evaluation limited. Grossly intact solid organs of
the abdomen. Symmetric renal excretion. Mild hepatomegaly. Subcentimeter low-attenuation left renal lesion too small to characterize. Small volume ascites. At least moderate right and small left pleural effusions, partially included on this study.
Aerated portions of lungs contain some nonspecific mild groundglass opacities. Heterogeneous appearance of the uterus. Cannot exclude space-occupying lesion. Cardiomegaly.
Echo: EF 15-20%, Severe global hypokinesis with septal dyskinesis. Normal right ventricular size. Low normal right ventricular systolic and function. Severely dilated left atrium. Severely dilated right atrium. Moderate to severe mitral
regurgitation. Aortic sclerosis without stenosis. Moderate aortic regurgitation. Moderate to severe tricuspid regurgitation. Estimated pulmonary artery pressure of 60-65 mmHg. The IVC is dilated and does not collapse.
CXR 11/25/24: Suspect mild CHF. Small bilateral pleural effusions with associated atelectasis and/or pneumonia. Cannot rule out component of underlying chronic interstitial lung disease.
RHC/LHC 12/02/24:
1. Severely elevated biventricular filling pressures and severely reduced cardiac output
2. Mild coronary artery disease in a right dominant system
Acute on chronic HFrEF:
-With acute hypoxic respiratory insufficiency, was on 2L NC O2, now on RA
-echo/CXR above
-was diuresed with IV lasix prior to LHC/RHC
-elevated troponin likely nonischemic myocardial injury due to acute on chronic HFrEF
-RHC and LHC done 12/02/24 as above, pt started on Lasix/milrinone gtts. Lasix gtt stopped 12/04/24. Milrinone gtt stopped 12/05/24.
-cont BB/Aldactone with holding parameters
-cont Farxiga
-daily wts, I/Os
-GDMT limited by hypotension (Entresto on hold)
Persistent nausea and vomiting:
-likely due to GI tract passive congestion from acute HFrEF
-CT A/P above
-family requested Reglan PRN. On 11/29/24 I did explain the potential risks of extrapyramidal side effects. Patient's family verbally acknowledged understanding of this.
Other problems:
Hypokalemia, resolved
Essential HTN: cont BB/aldactone with holding parameters
Depression: cont Zoloft
GERD: cont Pepcid/PPI
CKD3a
Pt's daughter updated at bedside.
PT/OT
DNR/Lovenox
Anticipated Discharge: 24 - 48 hours
Subjective/Interval History
-
Date of Service: December 05, 2024
Objective Data
-
Labs:
Laboratory Results
12/05/24
01:59
Sodium 136
Potassium 4.2 D
Chloride 99
Carbon Dioxide 31 H
BUN 34 H
Creatinine 1.0
Glucose 126 H
Calcium 8.0 L
Vital Signs:
Vital Signs
Temp Pulse Resp BP Pulse Ox
98.2 F 78 18 92/72 92
12/05/24 08:52 12/05/24 08:45 12/05/24 08:52 12/05/24 08:40 12/05/24 08:52
I&O
12/04/24 12/05/24 12/06/24
06:59 06:59 06:59
Intake Total 276 / 276 274 / 274
Output Total 4825 / 4825 800 / 800
Balance -4549 / -4549 -526 / -526
[2024-12-05] MEDS: ALDACTONE 25 MG PO (10:06)
[2024-12-05] MEDS: FARXIGA 10 MG PO (10:06)
[2024-12-05] MEDS: ZOLOFT 25 MG PO (10:07)
[2024-12-05] MEDS: ZOLOFT 100 MG PO (10:07)
[2024-12-05] MEDS: KCL 40 MEQ PO (10:07)
[2024-12-05] MEDS: LOW STRENGTH ASPIRIN 81 MG PO (10:07)
[2024-12-05] MEDS: ENTRESTO 24 MG/26 MG PO (10:24)
--- NOTE | 2024-12-05 12:04 | W.PN.CD ---
Today's Communication / Plan
-
Stop milrinone.
Hold Entresto for hypotension
P.o. diuresis tomorrow and possible discharge
Impression / Plan
-
Impression/Plan: 84-year-old female with NICMO admitted with acute on chronic HFrEF. She is undergoing inotrope assisted diuresis.
#NICMO/Acute on chronic heart failure with reduced ejection fraction
-Severe HF exacerbation with low output state requiring inotrope support. Milrinone stopped 12/05.
-New cardiomyopathy - Reviewed with her primary clinical trial educator. Last echo 2021 with normal LVEF. Patient last visit was in October 2024.
-LVEF of 15-20%, moderate to severe MR/TR, and moderate AR.
-Minimal troponin elevation is most likely secondary to acute nonischemic myocardial injury in the setting of CHF exacerbation.
-RHC confirmed severely elevated filling pressures.
-GDMT:
-Diuretics: S/p IV diuresis with > 20lb weight loss. Transition to p.o. diuretics tomorrow.
-Beta tamara: Metoprolol succinate 25 mg daily.
-ACEI/ARB/ARNi: Sacubitril-Valsartan 24-26 mg BID --held for hypotension, consider resuming tomorrow versus OP
-MRA: Continue spironolactone 25mg daily
-SGLT2i: Dapagliflozin 10 mg daily.
-ICD: Not yet indicated.
-Case management consult for sacubitril-valsartan pricing. Dapagliflozin is affordable
#LEANDRO
-Acute, improving. Likely due to cardiorenal syndrome
-Amyloidosis/multiple myeloma workup initiated.
#Pleural effusions
-Acute.
-Seen on CT abdomen. At least moderate on right, small on left.
-O2 normal. No role for thoracentesis at this time.
#Primary hypertension
-Chronic, stable.
-Tolerating metoprolol, sacubitril-valsartan.
#GERD
-Chronic, stable.
-Management as per primary team.
Subjective/Interval History:
Feels ok. No CV complaints including lightheadedness/dizziness.
DATA:
CT Abdomen/Pelvis, 11/25/2024:
IMPRESSION:
Marked edematous changes of the posterior/lateral abdominal and pelvic christina, left greater than right without discrete finding to suggest a posterior abdominal wall focal hematoma although evaluation limited.
Grossly intact solid organs of the abdomen. Symmetric renal excretion. Mild hepatomegaly. Subcentimeter low-attenuation left renal lesion too small to characterize.
Small volume ascites.
At least moderate right and small left pleural effusions, partially included on this study. Aerated portions of lungs contain some nonspecific mild groundglass opacities.
Heterogeneous appearance of the uterus. Cannot exclude space-occupying lesion.
Cardiomegaly.
Cardiac Catheterization, 12/02/2024:
CONCLUSIONS
1. Severely elevated biventricular filling pressures and severely reduced cardiac output
2. Mild coronary artery disease in a right dominant system
Physical Exam
Vital Signs/Labs
Vital Signs
Temp Pulse Resp BP Pulse Ox
98.2 F 78 18 92/72 97
12/05/24 11:35 12/05/24 08:45 12/05/24 11:35 12/05/24 10:06 12/05/24 11:35
12/04/24 12/05/24 12/06/24
06:59 06:59 06:59
Actual Weight 98 lb 12.273 oz 99 lb 6.856 oz
12/02/24 07:26
12/05/24 01:59
Magnesium 1.8 mg/dl (1.6-2.3) 11/28/24 06:22
Free T4 1.32 ng/dl (0.78-2.19) 11/30/24 08:48
11/25/24
13:08
Cgo-D-Vogeasvytmp Pept > [id number]
Physical Exam
Constitutional: Other (Cachectic)
Cardiovascular: Rhythm & rate is regular, Pedal edema is absent, S1S2 is normal and Murmur/rub/gallop absent
Respiratory: Respiratory effort normal and Lungs clear to auscul.
Neuro/Psych: AO x 3
Data Reviewed
-
Date of Service: December 05, 2024
Medical Decision Making: Reviewed Test Results, Independent Historian Assessment, Test Interpretation and Review of Case with other Provider
EKG: Tracing Personally Visualized and interpreted
Echo: Report Reviewed by me
Labs: Labs Reviewed by me
--- NOTE | 2024-12-05 13:41 | CHAP ---
Nurse requested a visit for Yisel, who has some anxiety, especially about how her will manage. Yisel has two caring daughters, one of whom was present during the visit. Emotional and spiritual support provided.
[2024-12-05] MEDS: LOVENOX 30 MG SC (17:16)
--- NOTE | 2024-12-05 17:39 | PTCARENOTE ---
Pt OOB to chair, up to bathroom and walked @80 feet with RN in stroud, pt denied SOB. No diuretics given today, pt is down 28lbs since admission. Pts skin is consequently very dry and wrinkled, much lotion applied. Pt's appetite much improved. Pt c/o
sore sacrum, preventive silicone foam in place, pt turning side to side in bed. Telemetry shows sinus rhythm with LBBB, SBP @110.
[2024-12-05] MEDS: TOPROL XL 25 MG PO (20:27)
[2024-12-05] MEDS: MELATONIN 3 MG PO (22:27)
[2024-12-05] MEDS: XALATAN OPHTHALMIC SOLUTION 1 DROP BOTH EYES (22:27)
--- NOTE | 2024-12-05 23:34 | PTCARENOTE ---
Assumed care on pt @ 1900, aaox3, SR w/ BBB on the monitor, HR 70-80's. Ambulating with x1 assist with walker without issues, stating that is feeling stronger. T&R q2HR while in bed, sacral foam clean and intact, skin intact. Call nation within reach.
[2024-12-06] VITALS (11 sets, daily range): BP systolic 101–122; BP diastolic 52–72; PULSE 74–78; O2SAT 98; BMI 19.5
[2024-12-06 04:03] LABS: Blood Urea Nitrogen 28 mg/dl (7-17); Calcium 8.5 mg/dl (8.4-10.2); Carbon Dioxide 31 mmol/L (22-30); Chloride 101 mmol/L (98-107); Estimated Creatinine Clearance 36 ml/min; Glucose 86 mg/dl (70-99); Potassium 4.5 mmol/L (3.5-5.1); Sodium 134 mmol/L (135-145); eGFR > 60.00
[2024-12-06] MEDS: PROTONIX 40 MG PO (07:51)
[2024-12-06] MEDS: LOW STRENGTH ASPIRIN 81 MG PO (07:51)
[2024-12-06] MEDS: ZOLOFT 100 MG PO (07:51)
[2024-12-06] MEDS: ZOLOFT 25 MG PO (07:51)
[2024-12-06] MEDS: ALDACTONE 25 MG PO (07:51)
[2024-12-06] MEDS: FARXIGA 10 MG PO (07:51)
[2024-12-06] MEDS: TIMOPTIC 0.5% OPHTHALMIC SOLUTION 1 DROP BOTH EYES ×2 (07:53→20:35)
[2024-12-06] MEDS: TRUSOPT 2% OPHTHALMIC SOLUTION 1 DROP BOTH EYES ×2 (07:53→20:35)
[2024-12-06] MEDS: KCL PO (08:16)
--- NOTE | 2024-12-06 08:55 | W.PN.HOSP.TC ---
Today's Communication/Plan
-
Adjust GDMT for heart failure. Discharge planning
Assessment / Plan
Assessment / Plan
Gen: NAD, Awake and alert, appears chronically ill
Eyes: EOMI, PERRLA, no scleral icterus.
Neck: supple.
CV: remains RRR, +S1/S2, no m/r/g.
Resp: remains CTAB anteriorly, no rales, wheezes, or rhonchi.
Abd: continues to remain +BS, soft, NT, ND
Skin: No rashes. trace B/L LE edema
Neuro: CN 2-12 intact, non-focal.
Psych: Normal mood and affect.
A/P:
RHC/LHC 12/02/24:
1. Severely elevated biventricular filling pressures and severely reduced cardiac output
2. Mild coronary artery disease in a right dominant system
Acute on chronic HFrEF:
Planning to restart diuretics by tomorrow orally
On metoprolol succinate 25 mg p.o. day
Restart Entresto
Decrease spironolactone
Discussed with cardiology today
Discussed with daughter over the phone today-discussed about plan of care and discharge disposition.
Persistent nausea and vomiting:
Preceded heart failure diagnosis but exacerbated
Supportive treatment
Hyponatremia:
Mild
Follow-up trend
Other problems:
Hypokalemia, resolved
Essential HTN: cont BB/aldactone with holding parameters
Depression: cont Zoloft
GERD: cont Pepcid/PPI
CKD3a
DVT prophylaxis:
Lovenox renally dosed
CODE STATUS:
DNR
Anticipated Discharge: Within 24 hours
Subjective/Interval History
-
Date of Service: December 06, 2024
Patient feels better overall although tired. Nausea on and off. No chest pain
Objective Data
-
Labs:
Laboratory Results
12/06/24
03:11
Sodium 134 L
Potassium 4.5
Chloride 101
Carbon Dioxide 31 H
BUN 28 H
Creatinine 0.9
Glucose 86
Calcium 8.5
Vital Signs:
Vital Signs
Temp Pulse Resp BP Pulse Ox
97.9 F 75 20 122/70 95
12/06/24 07:43 12/06/24 07:45 12/06/24 07:43 12/06/24 07:43 12/06/24 07:43
I&O
12/05/24 12/06/24 12/07/24
06:59 06:59 06:59
Intake Total 274 / 274 300 / 300
Output Total 800 / 800
Balance -526 / -526 300 / 300
--- NOTE | 2024-12-06 11:20 | W.PN.CD ---
Today's Communication / Plan
-
Decrease spironolactone to 12.5 mg daily.
Resume sacubitril-valsartan. Case management consult for pricing.
Resume furosemide 40 mg PO daily.
Discharge planning.
She will need an echocardiogram in 90 days (of GDMT) to determine need/indication for DIRECTOR IT PROJECT-D.
Impression / Plan
-
Impression/Plan: 84-year-old female with NICMO admitted with acute on chronic HFrEF requiring inotrope assisted diuresis.
#NICMO/HFrEF
-Acute on chronic, threat to life requiring intensive monitoring.
-Severe HF exacerbation with low output state requiring inotrope support. Milrinone stopped 12/05.
-New cardiomyopathy - Reviewed with her primary hogshead stripper. Last echo 2021 with normal LVEF. Patient last visit was in October 2024.
-LVEF of 15-20%, moderate to severe MR/TR, and moderate AR.
-Minimal troponin elevation is most likely secondary to acute nonischemic myocardial injury in the setting of CHF exacerbation.
-RHC confirmed severely elevated filling pressures.
-GDMT:
-Diuretics: Start furosemide 40 mg PO daily and monitor response.
-Beta tamara: Metoprolol succinate 25 mg daily.
-ACEI/ARB/ARNi: Sacubitril-Valsartan 24-26 mg BID - held for hypotension - resume today.
-MRA: Decrease spironolactone to 12.5 mg daily to allow for ARNi use.
-SGLT2i: Dapagliflozin 10 mg daily.
-ICD: Not yet indicated.
-Case management consult for sacubitril/valsartan pricing.
-UPEP negative for monoclonal gammopathy.
#LEANDRO
-Resolved.
#Pleural effusions
-Acute.
-Seen on CT abdomen. At least moderate on right, small on left.
-O2 normal. No role for thoracentesis at this time.
#Primary hypertension
-Chronic, stable.
-Tolerating metoprolol, sacubitril-valsartan.
#GERD
-Chronic, stable.
-Management as per primary team.
Subjective/Interval History:
Weight up 1.6 kg from yesterday.
BP improved from yesterday.
SaO2 95% on RA.
Renal function remains normal.
Na down to 134.
UPEP is negative for monoclonal gamma spike (Bence-Gurrola proteins).
DATA:
CT Abdomen/Pelvis, 11/25/2024:
IMPRESSION:
Marked edematous changes of the posterior/lateral abdominal and pelvic christina, left greater than right without discrete finding to suggest a posterior abdominal wall focal hematoma although evaluation limited.
Grossly intact solid organs of the abdomen. Symmetric renal excretion. Mild hepatomegaly. Subcentimeter low-attenuation left renal lesion too small to characterize.
Small volume ascites.
At least moderate right and small left pleural effusions, partially included on this study. Aerated portions of lungs contain some nonspecific mild groundglass opacities.
Heterogeneous appearance of the uterus. Cannot exclude space-occupying lesion.
Cardiomegaly.
Transthoracic Echocardiogram, 11/26/2024:
CONCLUSIONS
-Left ventricular ejection fraction is 15-20%. Severe global hypokinesis with
septal dyskinesis.
-Normal right ventricular size. Low normal right ventricular systolic and
function.
-Severely dilated left atrium. Severely dilated right atrium.
-Moderate to severe mitral regurgitation.
-Aortic sclerosis without stenosis. Moderate aortic regurgitation.
-Moderate to severe tricuspid regurgitation. Estimated pulmonary artery
pressure of 60-65 mmHg.
-The IVC is dilated and does not collapse.
No prior study available for comparison.
Cardiac Catheterization, 12/02/2024:
CONCLUSIONS
1. Severely elevated biventricular filling pressures and severely reduced cardiac output
2. Mild coronary artery disease in a right dominant system
Physical Exam
Vital Signs/Labs
Vital Signs
Temp Pulse Resp BP Pulse Ox
36.6 C 72 20 122/70 95
12/06/24 07:43 12/06/24 09:15 12/06/24 07:43 12/06/24 07:43 12/06/24 07:43
12/04/24 12/05/24 12/06/24
11:59 11:59 11:59
Actual Weight 44.4 kg 45.1 kg 46.7 kg
12/02/24 07:26
12/06/24 03:11
Magnesium 1.8 mg/dl (1.6-2.3) 11/28/24 06:22
Free T4 1.32 ng/dl (0.78-2.19) 11/30/24 08:48
11/25/24
13:08
Oon-Q-Ssumrsrmofp Pept > [id number]
Physical Exam
Constitutional: No acute distress and Comfortable
EENT: Anicteric and Moist mucous membranes
Cardiovascular: Rhythm & rate is regular, Pedal edema is absent, JVD pressure is normal, S1S2 is normal and Murmur/rub/gallop absent
Respiratory: Respiratory effort normal, Lungs clear to auscul., Wheeze Absent, Crackles Absent and Rhonchi Absent
GI: Soft, Distention absent, Flat, Non tender and Normal bowel sounds
Neuro/Psych: AO x 3
Data Reviewed
-
Date of Service: December 06, 2024
Medical Decision Making: Reviewed Test Results, Independent Historian Assessment and Test Interpretation
EKG: Tracing Personally Visualized and interpreted and Report Reviewed by me
Echo: Tracing Personally Visualized and interpreted and Report Reviewed by me
X-Ray/CT/US/MRI/NUC/PET: Image Personally Visualized and interpreted and Report Reviewed by me
Medical Tests (PFT, Pathology etc): Image Personally Visualized and interpreted and Report Reviewed by me
Labs: Labs Reviewed by me
--- NOTE | 2024-12-06 11:21 | CM ---
priced viviane at [facility]- her copay is $16/month
--- NOTE | 2024-12-06 11:34 | PTCARENOTE ---
Pt assisted OOB to BR with RW, parvin well. Foam dsg in place to sacrum. Pt's position changed frequently. She has air cushion on chair.
--- NOTE | 2024-12-06 12:20 | CM ---
priced viviane at [facility], her copay is $16/month
[2024-12-06 12:51] LABS: Albumin 3.41 g/dL (3.75-5.01); Alpha 1 Globulin 0.27 g/dL (0.19-0.46); Alpha 2 Globulin 0.46 g/dL (0.48-1.05); Free Kappa Light Chains,Quant 37.24 mg/L (3.30-19.40); IgA 432 mg/dL (68-408); IgG 1235 mg/dL (768-1632); IgM 68 mg/dL (35-263); Immunofixation Electrophoresis IFE Done; Kappa/Lambda Fr Light Ratio 1.05 (0.26-1.65); Total Protein-Electrophoresis 6.1 g/dL (6.3-8.2)
[2024-12-06] MEDS: LOVENOX 30 MG SC (17:27)
--- NOTE | 2024-12-06 17:59 | CM ---
[facility].
[2024-12-06] MEDS: ENTRESTO 24 MG/26 MG 1 TAB PO (20:35)
[2024-12-06] MEDS: TOPROL XL 25 MG PO (20:35)
[2024-12-06] MEDS: PEPCID 20 MG PO (21:49)
[2024-12-06] MEDS: XALATAN OPHTHALMIC SOLUTION 1 DROP BOTH EYES (21:49)
[2024-12-06] MEDS: MELATONIN 3 MG PO (21:49)
--- NOTE | 2024-12-06 23:22 | PTCARENOTE ---
Assumed care on pt at 1900, aaox3, SR on the monitor with HR 70's. Denies pain or SOB, c/o generalized weakness, Assist x1 with RW, steady gait. Call nation within reach.
[2024-12-07 04:07] VITALS: BP 116/60
[2024-12-07 05:25] LABS: Blood Urea Nitrogen 24 mg/dl (7-17); Calcium 8.6 mg/dl (8.4-10.2); Carbon Dioxide 30 mmol/L (22-30); Chloride 99 mmol/L (98-107); Estimated Creatinine Clearance 40 ml/min; Glucose 85 mg/dl (70-99); Potassium 4.2 mmol/L (3.5-5.1); Sodium 132 mmol/L (135-145); eGFR > 60.00
[2024-12-07 06:00] VITALS: BMI 19.7
[2024-12-07 06:51] VITALS: BP 123/69
[2024-12-07 08:38] VITALS: BP 130/71
[2024-12-07] MEDS: FARXIGA 10 MG PO (08:39)
[2024-12-07] MEDS: LOW STRENGTH ASPIRIN 81 MG PO (08:39)
[2024-12-07] MEDS: KCL 40 MEQ PO (08:39)
[2024-12-07] MEDS: ZOLOFT 100 MG PO (08:39)
[2024-12-07] MEDS: ZOLOFT 25 MG PO (08:39)
[2024-12-07] MEDS: PROTONIX 40 MG PO (08:39)
[2024-12-07] MEDS: ENTRESTO 24 MG/26 MG 1 TAB PO (08:40)
[2024-12-07] MEDS: TIMOPTIC 0.5% OPHTHALMIC SOLUTION 1 DROP BOTH EYES (08:40)
[2024-12-07] MEDS: ALDACTONE 12.5 MG PO (08:40)
[2024-12-07] MEDS: TRUSOPT 2% OPHTHALMIC SOLUTION 1 DROP BOTH EYES (08:40)
--- NOTE | 2024-12-07 08:56 | W.PN.HOSP.TC ---
Addendum entered and electronically signed by Roddy Best MD 12/07/24 12:44:
Moderate Protein Calorie Malnutrition
Original Note:
Today's Communication/Plan
-
Discharge planning today
Assessment / Plan
Assessment / Plan
Gen: NAD, Awake and alert, appears chronically ill
Eyes: EOMI, PERRLA, no scleral icterus.
Neck: supple.
CV: remains RRR, +S1/S2, no m/r/g.
Resp: remains CTAB anteriorly, no rales, wheezes, or rhonchi.
Abd: continues to remain +BS, soft, NT, ND
Skin: No rashes. trace B/L LE edema
Neuro: CN 2-12 intact, non-focal.
Psych: Normal mood and affect.
A/P:
RHC/LHC 12/02/24:
1. Severely elevated biventricular filling pressures and severely reduced cardiac output
2. Mild coronary artery disease in a right dominant system
Acute on chronic HFrEF:
Furosemide 40 mg p.o. daily today
On metoprolol succinate 25 mg p.o. day
Restart Entresto
Decrease spironolactone
Discussed with cardiology yesterday
Discussed with daughter at bedside today-discussed about plan of care and discharge disposition.
She is on potassium supplement but now that she is currently on Entresto spironolactone will discontinue supplementation
Plan for discharge today
Persistent nausea and vomiting:
Preceded heart failure diagnosis but exacerbated
Supportive treatment
Hyponatremia:
Mild
Follow-up trend
Other problems:
Hypokalemia, resolved
Essential HTN: cont BB/aldactone with holding parameters
Depression: cont Zoloft
GERD: cont Pepcid/PPI
CKD3a
DVT prophylaxis:
Lovenox renally dosed
CODE STATUS:
DNR
Anticipated Discharge: Today
Subjective/Interval History
-
Date of Service: December 07, 2024
Patient had an episode of vomiting this morning but attributed to the seasoning. Feels better afterwards. No chest pain or shortness of breath.
Objective Data
-
Labs:
Laboratory Results
12/07/24
04:28
Sodium 132 L
Potassium 4.2
Chloride 99
Carbon Dioxide 30
BUN 24 H
Creatinine 0.8
Glucose 85
Calcium 8.6
Vital Signs:
Vital Signs
Temp Pulse Resp BP Pulse Ox
97.8 F 72 16 130/71 96
12/07/24 06:59 12/07/24 08:40 12/07/24 06:59 12/07/24 08:40 12/07/24 06:59
I&O
12/06/24 12/07/24 12/08/24
06:59 06:59 06:59
Intake Total 300 / 300 720 / 720
Balance 300 / 300 720 / 720
[2024-12-07] MEDS: REGLAN 10 MG IV (09:18)
[2024-12-07] MEDS: LASIX 40 MG PO (09:18)
--- NOTE | 2024-12-07 09:33 | PN.CDI ---
CDI
- -
CDI:
Physician Documentation Request
Admit Date: 11/25/24 18:09
Dear Doctor Nasir,
Please review the following and provide your response in the progress notes.
Clinical Indicators:
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
#...pt reports poor appetite for > 1 month, pt states no energy
#...and no appetite since admission.
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
#...has lost additional weight since admission.
#CBW: 117 lbs 22.1 normal range (12/02), UBW 132 lbs reflective of a 15 lb (12%)
#...in 6 months significant.
#With weight loss of > 10% in 6 months and < 75% estimated needs > 1 month
#...pt meeting AND/ASPEN criteria for moderate protein calorie malnutrition.
Based on the above and your clinical assessment,please provide a diagnosis associated with the above documentation:
Moderate Protein Calorie Malnutrition
Other (please specify)
[place] Criteria (ACP Hospitalist 2017)
2 or more criteria must be present for either
non severe or severe malnutrition
Note that the criteria differs related to the
presence of an acute or chronic illness
Acute Illness Chronic Illness
Energy Intake Non Severe: <75% for >7 days Non Severe: <75% for >1 month
Severe: <50% for >5 days Severe: <75% for >1 month
Weight Loss Non Severe: 1-2% over 1 week Non Severe: 5% over 1 month
5% over 1 month 7.5% over 3 months
7.5% over 3 months 10% over 6 months
1 year N/A 20% over 1 year
Severe: >2% over 1 week Severe: >5% over 1 month
>5% over 1 month >7.5% over 3 months
>7.5% over 3 months >10% over 6 months
1 year N/A >20% over 1 year
Use of terms such as suspected, likely, concern for, or probable (associated with a specific diagnosis that is being evaluated, monitored, or treated as if it exists) are acceptable and can be coded in the inpatient setting, when documented at the
time of discharge.
Thank you,
Ute Jordan RN BSN CCDS
CDI Specialist
Please contact via tiger text
Please use your independent medical judgment in providing your response.
--- NOTE | 2024-12-07 10:00 | SUR.PHASEI ---
Assumed care of patient at 0645. Assessment completed and documented in shift assessment.
Patient is pleasant, AAOX4. On RA, lungs diminished throughout. SR with BBB on monitor. +1 non-pitting edema to B/L LE, + palpable pulses. L AC and FA IV patent. Nauseous with an episode of vomiting after eating breakfast she did not tolerate, IV
Reglan given. Continent of bowel and bladder. Ambulatory to bathroom with RW and 1-person assist.
Awaiting discharge to [facility] today.
[2024-12-07 11:37] VITALS: BP 127/69
--- NOTE | 2024-12-07 12:36 | W.DCSUMMARY ---
Discharge Summary
Discharge Data
Date of Admission: 11/25/24
Date of Discharge: 12/07/24
Total time spent discharging patient (in min): 35
-
Pending Results: No
Hospital Course
Patient 84 years old female history of hypertension, GERD, hyperlipidemia, CHF came into the hospital with heart failure exacerbation. Patient was diuresed appropriately. She had an echocardiogram that showed EF 15 to 20% with severe global
hypokinesis and moderate to severe mitral regurgitation and tricuspid regurgitation. Initially there was discussions about hospice but patient and family wanted to pursue further treatment. She underwent cardiac catheterization and no significant
obstructive CAD found. Her heart failure regimen was optimized. She also had persistent nausea some exacerbated by heart failure but also she had some symptoms that have been going on prior to this event and she will follow-up with outpatient
providers. Otherwise, she is hemodynamically stable and tolerating current cardiac medications. Cardiology has cleared her for discharge. 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 She will be discharged in stable condition today to
SNF.
.
Discharge duration: 35 minutes
Discharge Plan
-
Patient Disposition: Custodial/SNF
Discharge Diagnosis/Procedures: Acute on chronic diastolic congestive heart failure. Cardiac cath 12/02/24. Hyponatremia. Nausea.
Condition: Fair
Diet: 2 Gram Sodium and Restrict fluids to 48 oz
Activity: As tolerated
Blood Work: Please PCP to order CBC, BMP within 1 week
Specialty Instructions: Weigh Daily- Call MD for wt gain/loss 3 lbs overnight/5 lbs in 1 week
Instructions: *PCP/Other International Organizer Heart Failure Instructions
Stand Alone Forms: DC Instructions- Cath/EP Lab
Referrals:
[facility] [Outside]
Raulito Gonzalez MD [Non-Admitting Privileges] - in one to two weeks
Casey Uriarte MD [Family Provider, Family Practice] - in less than 1 week
Prescriptions:
New
furosemide 40 mg Tablet
40 mg PO DAILY 30 Days Qty: 30 0RF
spironolactone 25 mg Tablet
12.5 mg PO DAILY 30 Days Qty: 15 0RF
metoprolol succinate 25 mg Tablet Extended Release 24 Hr
25 mg PO DAILY@1999 30 Days Qty: 30 0RF
dapagliflozin propanediol 10 mg Tablet
10 mg PO DAILY 30 Days Qty: 30 0RF
Entresto 24-26 mg Tablet
1 tab PO BID 30 Days Qty: 60 0RF
Continued
pantoprazole [Protonix] 40 mg Tablet,Delayed Release (Dr/Ec)
40 mg PO DAILY
sertraline 50 mg Tablet
125 mg PO DAILY
famotidine [Pepcid] 40 mg Tablet
40 mg PO HS
therapeutic multivitamin Tablet
1 tab PO DAILY
bimatoprost 0.03 % Drops
1 drp BOTH EYES HS
cevimeline 30 mg Capsule
1 cap PO TID
dorzolamide-timolol [Cosopt] 22.3-6.8 mg/mL Drops
1 drp BOTH EYES BID
cholecalciferol (vitamin D3) [Vitamin D3] 50 mcg (2,000 unit) Tablet
50 mcg PO DAILY
Discontinued
torsemide 20 mg Tablet
10 mg PO DAILY
celecoxib 200 mg Capsule
200 mg PO DAILYPRN PRN (Reason: mild pain)
atenolol 25 mg Tablet
25 mg PO DAILY
valsartan 160 mg Tablet
160 mg PO DAILY
Discharge Orders:
Discharge Patient (As Directed); Ordered 12/07/24
Ordered By: Roddy Best
Care Plan Goals
Care Plan Goals:
Problem: Readiness for enhanced knowledge related to diagnosis and treatment plan
Goal: Understand your diagnosis and treatment plan needs, including medications if applicable.
Instructions: Know your diagnosis, underlying causes and treatment plan options, including medications if applicable. Consult with your health care team to learn about your diagnosis and treatment plan, including medications if applicable.
Discharge Date and Time
Discharge Date/Time: 12/07/24 15:03
Print Language: SYRIAN
--- NOTE | 2024-12-07 13:20 | CM ---
CM following for DC planning needs.
Plan is for DC to rehab today.
Bed available at [facility] as confirmed with admissions/ [place].
Met w/ patient + dtrKathryn Wang at bedside. Also placed call to erasmorBrittnee Wang via telephone.
Plan is for transfer to [facility] today via wheelchair van.
No further needs noted.
[2024-12-07 13:26] LABS: COVID-19 Antigen Negative (Negative)
--- NOTE | 2024-12-08 10:33 | W.HF.CON ---
Heart Failure
- LV Function
Left ventricular function study result: LV Ejection fraction </= 35%
Ejection Fraction Percentage: 15-20
- ARNI
Patient already on ARNI: Yes
- ACEI/ARB
Patient already on ACEI/ARB: No
Heart Failure ACEI/ARB Not Indicated: Patient ordered/on ARNI
- Beta Kyle
Patient already on Evidence Based Beta Kyle: Yes
- Mineralocorticord Receptor Antagonist
Patient already on MRA: Yes
- SGLT-2 Inhibitor
Patient already on SGLT-2 Inhibitor: Yes
- NYHA CHF Classification
NYHA CHF Classification Level: Class III - Symptoms w/ min exertion, interferes w/ nml daily activity
- ACC/AHA Stage
ACC/AHA Stage: Stage C: Symptomatic Heart Failure
== END 2024-12-07 15:03 | DRG 286 ==
LOC: IVU 18:09
PROVIDERS: Emergency Medicine; Internal Medicine; Internal Medicine Cardiovascular Disease; Student in an Organized Health Care Education/Training Program; ADMITTING PHYSICIAN Hospitalist; CONSULT PHYSICIAN Internal Medicine; EMERGENCY PHYSICIAN Emergency Medicine; FAMILY PHYSICIAN Family Medicine
PROC: B2141ZZ Fluoroscopy of Right Heart using Low Osmolar Contrast (ICD-10-PCS; 2024-12-02)
PROC: B2111ZZ Fluoroscopy of Multiple Coronary Arteries using Low Osmolar Contrast (ICD-10-PCS; 2024-12-02)
PROC: 4A023N6 Measurement of Cardiac Sampling and Pressure, Right Heart, Percutaneous Approach (ICD-10-PCS; 2024-12-02)
DX: I13.0 Hypertensive heart and chronic kidney disease with heart failure and stage 1 through stage 4 chronic kidney disease, or unspecified chronic kidney disease (principal); I50.23 Acute on chronic systolic (congestive) heart failure; N17.9 Acute kidney failure, unspecified; E44.0 Moderate protein-calorie malnutrition; Z68.1 Body mass index [BMI] 19.9 or less, adult; E87.1 Hypo-osmolality and hyponatremia; R64 Cachexia; J98.11 Atelectasis; R18.8 Other ascites; F32.A Depression, unspecified; K21.9 Gastro-esophageal reflux disease without esophagitis; Z66 Do not resuscitate; I42.9 Cardiomyopathy, unspecified; E87.6 Hypokalemia; I5A Non-ischemic myocardial injury (non-traumatic); N18.31 Chronic kidney disease, stage 3a; R06.89 Other abnormalities of breathing; R09.02 Hypoxemia
CPT/HCPCS: 71046; 74177; 80048; 80053; 80069; 82533; 82784; 83520; 83521; 83735; 83880; 84155; 84156; 84165; 84439; 84443; 84484; 85025; 85027; 86334; 86335; 87811; 93005; 93306; 93456; 96374; 96375; 97110; 97116; 97162; 97167; 97530; 97535; 99152; 99153; 99285; C1769; C1894; J2260; Q9967

== ENCOUNTER 2025-02-01 21:47 | Inpatient (IN) | payer MEDICARE, OTHER, SELFPAY ==
[2025-02-01 18:20] VITALS: BP 137/86
[2025-02-01 18:42] LABS: Hematocrit 40.9 % (37.0-47.0); Hemoglobin 14.1 g/dL (12.0-16.0); Mean Corp Hgb Conc. 34.5 g/dL (33.0-37.0); Mean Corpuscular Volume 128.2 fL (81.0-99.0); Nucleated Red Blood Cells % 7.6 %; Platelet Count 168 10^3/uL (130-400); Red Cell Dist. Width 23.6 % (11.5-14.5)
[2025-02-01 18:48] LABS: INR 1.39; PT 17.3 Sec (11.4-14.6)
[2025-02-01 18:56] LABS: ALT (SGPT) 36 U/L (0-35); AST (SGOT) 43 U/L (14-36); Albumin 4.1 g/dl (3.5-5.0); Alkaline Phosphatase 61 U/L (38-126); Blood Urea Nitrogen 42 mg/dl (7-17); Calcium 9.1 mg/dl (8.4-10.2); Carbon Dioxide 24 mmol/L (22-30); Chloride 103 mmol/L (98-107); Glucose 114 mg/dl (70-99); Potassium 4.1 mmol/L (3.5-5.1); Sodium 138 mmol/L (135-145); Total Protein 7.3 g/dl (6.3-8.2); eGFR 56.25
[2025-02-01 19:07] LABS: Troponin I 0.187 ng/ml
[2025-02-01 20:07] VITALS: BMI 22.9
--- NOTE | 2025-02-01 20:13 | ED.GENMED ---
History of Present Illness
General
Chief Complaint: Breathing Problem
Source: patient and family
Exam Limitations: none
Time Seen by Provider: 02/01/25 19:54
Nursing documentation reviewed up to this point in time: agreed with
History of Present Illness
History of Present Illness:
Patient to ED with complaint of increasing weakness, BLE edema/weight gain, confusion. History of CHF She was prescribed Lasix 40mg daily. Friday her ux developer designer switched her to torsemide 40mg. Spironolactone was also increased to 25mg. Family
reports no improvement. Brought to ED for eval. Pulse ox 82% RA. Placed on 4LNC, pulse ox now 95%. No home O2 use. She denies feeling SOB.
Past History
Past History
ED Past Medical History: CHF, GERD, HTN and Hypercholesterolemia
Review of Systems
Review of Systems
Allergies reviewed?: Yes
All Other Systems: ROS reviewed and negative except as documented in HPI and ROS
Constitutional: Reports weight gain and fatigue
EENT: Reports no symptoms
Respiratory: Reports other (She denies SOB. Pulse ox 82% RA on arrival)
Cardiac: Reports no symptoms
ABD/GI: Reports nausea
Musculoskeletal: Reports edema (BLE edema)
Skin: Reports no symptoms
Neurological: Reports weakness
Psychiatric: Reports no symptoms
Phy Exam
General Physical Exam
General Presentation: moderate distress
General age: appears stated age
General Skin: warm and dry
General Habitus: frail
General Mental: alert
Cardiovascular Exam
Cardiovascular Exam: regular rate/rhythm
Pulmonary Exam
Pulmonary Exam: decreased breath sounds
Breath Sounds: Crackles: left lower and right lower
Gastrointestinal Exam
Gastrointestinal Exam: normal bowel sounds, non tender and soft
Neurological Exam
Neurological Exam: alert, oriented x3, CN II-XII intact, no motor deficits, no sensory deficits and speech normal
Musculoskeletal Exam
Musculoskeletal Exam: full ROM, edema (+2BLE edema) and neuro vasc intact
Skin Exam
Skin Exam: normal color, warm/dry and no rash
Psychiatric Exam
Psychiatric Exam: normal mood/affect
Scores
Heart Failure Risk
Heart Failure Risk Score: Not Applicable
Course
Orders/Labs/Results
Orders:
Orders
02/01/25 Dinner
Cholesterol Lowering
At Your Request: Full Participation
Fluid Restriction: 1500 mL/day (50 oz)
Cholesterol Lowering: Sodium, 2 Gram
02/01/25 18:19
Electrocardiogram (*1) Urgent
Reason for Study: Shortness of Breath
02/01/25 18:22
CR Chest - 2 Views Urgent
Comment:
Reason For Exam: CHF
02/01/25 18:26
Complete Blood Count/With Diff Urgent
Comprehensive Metabolic Panel Urgent
Pro-BNP [NT-proBNP] Urgent
Prothrombin Time Urgent
Troponin I Urgent
02/01/25 20:30
Furosemide [Lasix] 40 mg IV NOW STA
02/01/25 21:29
Admit/Transfer Patient As Directed
Co-Sign Provider:
Level of Care: Inpatient admission
Assign to:: IVU
Physician / Group: Christopher Hardy
Diagnosis: HFrEF exacerbation
Reason for Hospitalization: HFrEF exacerbation
Expected length of stay greater than two midnights?: Yes
ELOS- Estimated Length of Stay in days: 3
I certify the patient meets the requirements for IP care: Yes
PRN Pain Medication Management As Directed
May give lesser potent ordered pain med per pt: Yes
preference::
Protocol:: Medication orders for pain may be administered in a
manner that supports deferring to patient preference
when the pt is:
- Requesting an ordered lesser potent pain medication.
Least to most potent pain medications are defined
as: acetaminophen < NSAID < tramadol < opioids
(morphine, oxycodone, hydromorphone).
- Requesting a lesser dose of the same medication IF
ORDERED.
- Requesting a less intrusive route of administration
if both routes are prescribed by the provider (PO <
IV).
02/01/25 21:35
Code Status As Directed
Resuscitation Status: Do not resuscitate
Reached after discussion with pt or family/Healthcare POA: Yes
Decision communicated with: patient
DNR Bracelet Application ONCE
02/01/25 23:00
Sertraline HCl [Zoloft] 150 mg PO HS
02/01/25 23:01
Sacubitril 24/Valsartan 26 [Entresto 24 mg/26 mg] 1 tab PO BID
cevimeline 1 cap PO TID
02/01/25 23:01
HF DIETARY CONSULT Routine
HF EDUCATOR CONSULT Routine
Comment:
Activity As Directed
Activity Level: As Tolerated
Intake/ Output As Directed
Frequency: Per unit guidelines
Patient Education As Directed
Type: CHF folder
Comment: give on admission. Document in Interdisciplinary Education record
Sleep Apnea Assessment by RN As Directed
Comment:
Physician Instructions:
Vital Signs As Directed
Frequency: Other
Additional Instructions:: Q12 or per unit guidelines if more frequent.
Weight As Directed
Frequency: Daily
Type of Scale: Standing Scale
Comment: Daily morning weight. If unable to stand, use balanced bed scale.
Weight As Directed
Frequency: Once
Type of Scale: Standing Scale
Comment: Upon Admission. If unable to stand, use balanced bed scale.
Pulse Ox/cont/shift [RESP] Routine
Quantity: 1
Special Instructions: Daily pulse oximetry at rest. If greater than 92% at rest also obtain pulse oximetry
while ambulating as tolerated.
DX Deep Vein Thrombosis Video Routine
02/02/25 00:00
Heparin 5,000 units SC Q8
02/02/25 06:00
Basic Metabolic Panel IN AM
Complete Blood Count/No Diff IN AM
02/02/25 08:00
Cholecalciferol (Vitamin D3) [VITAMIN D3 (cholecalciferol)] 50 mcg PO DAILY
Dapagliflozin [Farxiga] 10 mg PO DAILY
Famotidine [Pepcid] 20 mg PO BID
Furosemide [Lasix] 40 mg IV BID AT 0800,1600
Multivitamin [Theragran] 1 tablet PO DAILY
Pantoprazole [Protonix] 40 mg PO DAILY
Spironolactone [Aldactone] 25 mg PO DAILY
clobetasol 1 applic TOPICAL BID
02/02/25 20:00
Metoprolol Xl [Toprol Xl] 25 mg PO DAILY@1999
02/03/25 06:00
Basic Metabolic Panel IN AM
02/04/25 06:00
Basic Metabolic Panel IN AM
Abnormal Lab Results
02/01/25
18:26
RBC 3.19 L 10^6/uL
(4.20-5.40)
MCV 128.2 H fL
(81.0-99.0)
MCH 44.2 H pg
(27.0-31.0)
RDW 23.6 H %
(11.5-14.5)
MPV 11.0 H fL
(7.4-10.4)
Abs Immat Gran (auto) 0.1 H 10^3/uL
(0-0.05)
Absolute Lymphs (auto) 0.5 L 10^3/uL
(1.2-3.4)
Immature Gran % 0.8 H %
(0-0.5)
Neutrophils % 83.3 H %
(42.2-75.2)
Lymphocytes % 7.4 L %
(20.5-51.1)
PT 17.3 H Sec
(11.4-14.6)
BUN 42 H mg/dl
(7-17)
Glucose 114 H mg/dl
(70-99)
Total Bilirubin 3.3 H mg/dl
(0.2-1.3)
AST 43 H U/L
(14-36)
ALT 36 H U/L
(0-35)
Troponin I 0.187 H* ng/ml
02/01/25 18:26
02/01/25 18:26
Vital Signs
Initial and Last Documented VS:
Initial Vital Signs
Temp Pulse Resp BP Pulse Ox
98.2 F 103 17 137/86 94
02/01/25 18:20 02/01/25 18:20 02/01/25 18:20 02/01/25 18:20 02/01/25 18:20
Last Documented Vital Signs
Temp Pulse Resp BP Pulse Ox
98 F 97 16 135/93 97
02/01/25 22:35 02/01/25 23:26 02/01/25 22:35 02/01/25 23:26 02/01/25 23:08
*Radiology
Radiology exam reviewed: radiology read reviewed
*Pulse Oximetry
SaO2: 94
Oxygen Mode of Delivery: Room air
Patient hypoxic: yes
Comment: 82% RA on arrival. O2 4L NC placed. Pulse ox holding at 95%
*Critical Care Note
Total Time (30-74mins, 75-104mins- exclusive of procedures): Not Applicable
Update Note
Update Note:
Patient to ED with report of weakness, increasing edema BLE. Lasix discontinued by her ux developer designer on Friday. Placed on Torsemide 40mg daily, spironolactone increased to 25mg daily without imnprovement in symptoms. Pulse ox on arrival 82% RA, O2
4L NC placed - now 95%. BNP >60949, Troponin 0.187 (0.148 6/5). No cp/pressure, denies SOB. +2edema BLE. Bilateral breaths sounds decreased, crackles at bases. CXR confiring pulmonary edema. Given 40mg IV lasix in ED. Will admit to
hospitalist for CHF, hypoxemia.
ED Attending Note
-
Portions of this chart may have been created with voice recognition software.� Occasional wrong word or��sound alike� substitutions may have occurred due to the inherent limitations of voice recognition software.
Discharge Plan
Departure
Patient Disposition: Admit
Date of Disposition: 02/01/25
Time of Disposition: 20:31
Presentation/result/management discussed w/ accepting MD/DO: Hospitalist
Patient with high blood pressure during this ER visit?: No
Condition: Fair
Covid-19: Not Applicable
Discharge Problem:
CHF (congestive heart failure), Hypoxemia
Interventions
Interventions:
*Risk Screen - Suicide Last Done: 02/01/25 18:21
*General Assessment Last Done: 02/01/25 18:21
*Neglect/Abuse Screening Last Done: 02/01/25 18:21
*ED- Fall Risk Assessment Last Done: 02/01/25 20:11
*ED COVID-19 Vaccine History Last Done: 02/01/25 18:21
*Nursing Disposition Last Done: 02/01/25 22:38
ED- Cardiac Assessment Last Done: 02/01/25 20:11
ED- Pulmonary Assessment Last Done: 02/01/25 20:11
Discharge Date and Time
Discharge Date/Time: 02/01/25 22:30
[2025-02-01 20:22] LABS: Anisocytosis 2+; Hypochromasia 2+; Macrocytosis 2+; Normal RBC Morphology No; Polychromasia Occasional; Target Cells 1+; Tear Drop Red Blood Cells 1+
--- NOTE | 2025-02-01 20:34 | HPS.HSE ---
Addendum entered and electronically signed by Christopher Hardy DO 02/01/25 22:44:
Patient seen and examined independently. Agree with findings and plan as set forth by NBA Hilario.
Patient is an 84y F with PMH significant for HFrEF, hypertension and CKD III who presents to ED complaining of abdominal distention, LE edema and weight gain. Patient has noted progressive symptoms over the past week or two. She had her
medications adjusted by her primary Cabinetmaker Maintenance (changed Lasix to Torsemide, increased Aldactone) with no appreciable improvement. She presented to the ED today for further evaluation. Patient complains of significant fatigue. She denies any
chest pain. Perhaps mild dyspnea with activity.
Ass:
Acute on Chronic HFrEF
Non-Ischemic Cardiomyopathy (LVEF 10-15%)
Benign Hypertension
CKD III
GERD
Plan:
Admit for further evaluation and treatment.
IV Lasix BID and follow I/Os, daily weights, etc.
Monitor BP - patient required ionotropic support during prior admission.
Cardiology evaluation for additional recommendations.
Follow for clinical improvement.
Original Note:
Family Physician
-
Family Physician: * NONE
Chief Complaint
-
BLLE edema
History of Present Illness
Patient is a 84-year-old female with past medical history significant for hypertension, GERD, HFrEF, depression and CKD IIIa who presented to [facility] ED for evaluation of fluid overload. Patient reports seeing beauty culturist apprentice on Friday at a scheduled
appointment where he adjusted her medications and requested she go to ED if her symptoms did not improve with changes. Cardiology discontinued furosemide, started Torsemide and increased Spironolactone on Friday and patient states since then her
weight has been stable, she continues with BLLE edema and extra fluid in midsection. She also states she does not feel she has been urinating as much as she normally does. She reports chronic productive cough with phlegm. She denies any weight gain,
shortness of breath or dizziness.
Medical History
Past Medical History
Past Medical History: Reports Other
Additional Past Medical History:
hypertension
GERD
HFrEF
depression
CKD IIIa
Past Surgical History: Reports None
Social History
Tobacco: Non-smoker
Alcohol: None
Drug: None
Personal:
Living: With Family
Family History
Family History: Not pertinent
Allergies / Home Medications
Allergies reflects when Allergies were last updated in [facility].
Home Medications with original date entered in [facility]
Allergy/Medication List:
Allergies
Allergy/AdvReac Type Severity Reaction Status Date / Time
No Known Allergies Allergy Unverified 02/01/25 18:21
Home Medications
cevimeline 30 mg capsule 1 cap PO TID Xerostomia 11/25/24
cholecalciferol (vitamin D3) 50 mcg (2,000 unit) tablet (Vitamin D3) 50 mcg PO DAILY Supplement 11/25/24
dorzolamide 22.3 mg-timolol 6.8 mg/mL eye drops (Cosopt) 1 drp BOTH EYES BID Eye Condition 11/25/24
famotidine 40 mg tablet (Pepcid) 20 mg PO BID Gastrointestinal Issue 11/25/24
pantoprazole 40 mg tablet,delayed release (Protonix) 40 mg PO DAILY Gastrointestinal Issue 11/25/24
sertraline 50 mg tablet 150 mg PO DAILY Depression 11/25/24
therapeutic multivitamin 1 tab PO DAILY Supplement 11/25/24
metoprolol succinate 25 mg tablet,extended release 24 hr 25 mg PO DAILY@2000 30 days #30 tabs 12/07/24
sacubitril 24 mg-valsartan 26 mg tablet (Entresto) 1 tab PO BID 30 days #60 tabs 12/07/24
clobetasol 0.05 % topical gel 1 applic topical BID 02/01/25
empagliflozin 10 mg tablet (Jardiance) 10 mg PO DAILY 02/01/25
spironolactone 25 mg tablet 25 mg PO DAILY 02/01/25
torsemide 40 mg tablet 40 mg PO DAILY 02/01/25
trazodone 50 mg tablet 50 mg PO HS 02/01/25
Review of Systems
-
History Source: Patient
Constitutional: Reports No Symptoms
EENT: Reports No Symptoms
Respiratory: Reports No Symptoms
Cardiac: Reports Other (BLLE edema )
Abdomen/GI: Reports Other (increased abdominal girth )
: Reports Other (decreased urination )
Musculoskeletal: Reports No Symptoms
Skin: Reports No Symptoms
Neurological: Reports No Symptoms
Endocrine: Reports No Symptoms
Hematologic/Lymphatic: Reports No Symptoms
Psych: Reports No Symptoms
Physical Exam
Vital Signs
Vital Signs
Temp Pulse Resp BP Pulse Ox
98.2 F 103 17 137/86 94
02/01/25 18:20 02/01/25 18:20 02/01/25 18:20 02/01/25 18:20 02/01/25 20:30
Physical Exam
General: Well Developed, No Apparent Distress, Comfortable and Conversant
HEENT: NormoCephalic, Moist mucous membranes, Atraumatic and Oxygen
Respiratory: Clear, Non Labored Respirations and Decreased Breath Sounds
Cardiac: S1/S2, Regular Rhythm and Peripheral Edema (BLLE edema ); No Murmur, Rub or Gallop
GI: Soft, Non Tender, Normal Bowel Sounds and Distended (mild distension ); No Organomegaly
Rectal: Deferred by Provider
Genito-urinary: Deferred by me
Musculoskeletal: No Clubbing and No Cyanosis
Skin: Warm and IV/Catheter Site
Neuro: Awake, AO x 3 and Nonfocal/grossly intact
Psych: Calm and Intact Judgment/Insight
Laboratory Results
-
02/01/25 18:26
02/01/25 18:26
Laboratory Results
PT 17.3 Sec (11.4-14.6) H 02/01/25 18:26
INR 1.39 02/01/25 18:26
Total Bilirubin 3.3 mg/dl (0.2-1.3) H 02/01/25 18:26
AST 43 U/L (14-36) H 02/01/25 18:26
ALT 36 U/L (0-35) H 02/01/25 18:
Alkaline Phosphatase 61 U/L (38-126) 02/01/25 18:
Troponin I 0.187 ng/ml H* 02/01/25 18:26
Data Reviewed
-
Diagnostic Radiology: Report Reviewed by me (CXR: Small bilateral pleural effusions. Bilateral infrahilar pulmonary opacities, left greater than right, favored to be secondary to pulmonary edema. Pneumonia would be an alternative consideration in
the appropriate clinical setting. No pneumothorax. Stable enlarged cardiac silhouette. Chronic d)
Medical Tests (Nuc Med, Echo, EKG etc): Report Reviewed by me (EKG: NORMAL SINUS RHYTHM RIGHT SUPERIOR AXIS DEVIATION LEFT VENTRICULAR HYPERTROPHY WITH QRS WIDENING AND REPOLARIZATION ABNORMALITY ( [place] product ))
Lab Data: Labs Reviewed by me (BUN 42, Creat 1.2, eGFR 56.25, Tot Bili 3.3, AST 43, ALT 36, trop 0.187, pBNP > 60703)
Impression/Plan
-
IMPRESSION/PLAN:
#acute on chronic HFrEF
Tot Bili 3.3, AST 43, ALT 36, trop 0.187, pBNP > 58810
CXR: Small bilateral pleural effusions.
Bilateral infrahilar pulmonary opacities, left greater than right, favored to be secondary to pulmonary edema. Pneumonia would be an alternative consideration in the appropriate clinical setting.
No pneumothorax. Stable enlarged cardiac silhouette. Chronic degenerative changes of the spine.
EKG: NORMAL SINUS RHYTHM
RIGHT SUPERIOR AXIS DEVIATION
LEFT VENTRICULAR HYPERTROPHY WITH QRS WIDENING AND REPOLARIZATION ABNORMALITY ( [place] product )
ECHO (11/26/2024): -Left ventricular ejection fraction is 15-20%. Severe global hypokinesis with septal dyskinesis.
-Normal right ventricular size. Low normal right ventricular systolic and function.
-Severely dilated left atrium. Severely dilated right atrium.
-Moderate to severe mitral regurgitation.
-Aortic sclerosis without stenosis. Moderate aortic regurgitation.
-Moderate to severe tricuspid regurgitation. Estimated pulmonary artery pressure of 60-65 mmHg.
-The IVC is dilated and does not collapse.
- Admit to telemetry
- Consult cardiology
- continue Jardiance, Entresto and spironolactone
- Hold PO torsemide
#hypertension
- continue metoprolol
#GERD
- continue famotidine and pantoprazole
#depression
- continue sertraline
#CKD IIIa
BUN 42, Creat 1.2, eGFR 56.25
- monitor BMP
Code status:
DVT prophylaxis:
[2025-02-01] MEDS: LASIX 40 MG IV (20:57)
[2025-02-01 21:00] VITALS: BP 110/92
[2025-02-01 22:00] VITALS: BP 128/82
[2025-02-01 22:32] VITALS: BMI 22.7
[2025-02-01 22:35] VITALS: BP 132/82
[2025-02-01 22:38] VITALS: BP 132/82
[2025-02-01 22:56] VITALS: BMI 22.7
--- NOTE | 2025-02-01 23:00 | TRANSFER ---
Patient received as transfer from ED. Stand and pivot to the bed x2 assist. Patient alert to self, place, and year. Reports new difficulty swallowing, bedside speech eval completed. Admission completed. See worklist for further information. Patient
oriented to room and unit. Bed alarm armed due to high fall risk status. Patient's daughter also reported new intermittent confusion and forgetfulness. DNR bracelet intact. Call nation within reach. Care ongoing.
[2025-02-01 23:10] VITALS: BP 135/93
[2025-02-01] MEDS: HEPARIN 5000 UNITS SC (23:26)
[2025-02-01] MEDS: ENTRESTO 24 MG/26 MG 1 TAB PO (23:26)
[2025-02-01] MEDS: ZOLOFT 150 MG PO (23:26)
--- NOTE | 2025-02-01 23:58 | PTCARENOTE ---
Patient sinus rhythm on telemetry. Remains on 2L NC primarily for comfort, oxygen saturation 96% on 2L. The patient denies pain or discomfort at this time. Reported one episode of vomiting, per the daughter the patient begins to cough and then
vomits if she is coughing excessively. Purewick in place. Plan of care discussed. HF education packet given. Call nation within. Care ongoing.
[2025-02-02] VITALS (7 sets, daily range): BP systolic 124–137; BP diastolic 63–85; PULSE 85; O2SAT 98; BMI 22.6
[2025-02-02] MEDS: TRUSOPT 2% OPHTHALMIC SOLUTION 1 DROP BOTH EYES ×3 (00:13→19:36)
[2025-02-02] MEDS: TIMOPTIC 0.25% OPHTHALMIC SOLUTION 1 DROP BOTH EYES ×3 (00:13→19:36)
[2025-02-02 04:09] LABS: Hematocrit 38.7 % (37.0-47.0); Hemoglobin 13.7 g/dL (12.0-16.0); Mean Corp Hgb Conc. 35.4 g/dL (33.0-37.0); Mean Corpuscular Volume 126.1 fL (81.0-99.0); Platelet Count 170 10^3/uL (130-400); Red Cell Dist. Width 22.8 % (11.5-14.5)
[2025-02-02 05:22] LABS: Blood Urea Nitrogen 44 mg/dl (7-17); Calcium 9.0 mg/dl (8.4-10.2); Carbon Dioxide 26 mmol/L (22-30); Chloride 103 mmol/L (98-107); Estimated Creatinine Clearance 33 ml/min; Glucose 111 mg/dl (70-99); Potassium 4.2 mmol/L (3.5-5.1); Sodium 136 mmol/L (135-145); eGFR 56.25
--- NOTE | 2025-02-02 08:10 | W.PN.HOSP.TC ---
Today's Communication/Plan
-
Continue IV diuresis
Assessment / Plan
Assessment / Plan
Physical Exam
General: Not in acute distress
HEENT: Normocephalic, Moist mucous membranes
Respiratory: Decreased Breath Sounds Bilaterally. ON 2 L NASAL CANNULA OXYGEN.
Cardiac: S1/S2, Regular Rhythm
GI: Soft, Non Tender, Normal Bowel Sounds
Musculoskeletal: Peripheral Edema (Bilateral Lower Extremity edema)
Skin: Warm. Dry.
Neuro: Awake, AO x 3 and Nonfocal/grossly intact
Psych: Calm and Intact Judgment/Insight
Assessment/Plan
84 y female with past medical history significant for depression, HFrEF (previously required Milrinone-assisted diuresis), hypertension, GERD and CKD III who presented to the [facility] ED complaining of abdominal distention, LE edema and weight gain.
Patient noted progressive symptoms over the past week or two prior to presentation. Recently, she had her medications adjusted by her primary Librarian Helper (changed Lasix to Torsemide, increased Aldactone) with no appreciable improvement. She
presented to the ED today for further evaluation. Patient complained of significant fatigue. She denied any chest pain. She perhaps had mild dyspnea with activity. She also states she does not feel she has been urinating as much as she normally
does.
#acute on chronic HFrEF
#Non-Ischemic Cardiomyopathy (LVEF ~15%)
- Continue to monitor in IVU
- Consult cardiology
- continue Jardiance/Farxiga, Entresto and spironolactone
- Hold PO torsemide
- Continue IV Lasix
#hypertension
- continue metoprolol
#GERD
- continue famotidine and pantoprazole
#depression
- continue sertraline
#CKD IIIa
BUN 42, Creat 1.2, eGFR 56.25
- monitor BMP
Code status: DNR
DVT prophylaxis: Heparin subq
Anticipated Discharge: > 48 hours
Subjective/Interval History
-
Date of Service: February 02, 2025
Patient was seen and examined. She reported that her shortness of breath is better. She denied any chest pain.
Objective Data
-
Labs:
Laboratory Results
02/02/25 02/02/25
03:50 04:42
WBC 7.0
Hgb 13.7
Hct 38.7
Plt Count 170
Sodium Cancelled 136
Potassium Cancelled 4.2
Chloride Cancelled 103
Carbon Dioxide Cancelled 26
BUN Cancelled 44 H
Creatinine Cancelled 1.0
Glucose Cancelled 111 H
Calcium Cancelled 9.0
Vital Signs:
Vital Signs
Temp Pulse Resp BP Pulse Ox
97.5 F 91 18 137/78 96
02/02/25 07:26 02/02/25 07:26 02/02/25 07:26 02/02/25 03:31 02/02/25 07:26
I&O
02/01/25 02/02/25 02/03/25
06:59 06:59 06:59
Intake Total 240 / 240
Output Total 75 / 75
Balance 165 / 165
--- NOTE | 2025-02-02 08:11 | CON.CAR ---
Addendum entered and electronically signed by Kaz Sampson MD 02/02/25 13:43:
Patient seen and examined in collaboration with CLARK DRIVER; agree with below.
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
-The patient has gained an additional 15 pounds over the past 2 months despite all attempted medication measures.
- It was recommended that her previous hospitalization 2 months ago that palliative care is appropriate in this case; this was reiterated today, and the patient and her primary [employer] are agreeable (I called and spoke to both of them today).
- Hospitalist updated on recommendation to consult palliative care.
- Can continue Lasix 80 mg IV BID for now; conservative management overall as patient has overall poor prognosis.
Original Note:
Consultation
Consultation Request
Date/Time Consultation Requested: 02/01/25 0094
Date/Time Consultation Performed: 02/02/25 0811
Requesting Provider: Shwetha Taylor NP
Performing Provider: Elyssa ARANGO for Dr. Sampson
Reason for Consultation: CHF
Medical History
-
Chief Complaint: swelling
History of Present Illness:
84 y/o female (fireperson is Dr. Gonzalez) with HFrEF (EF is 15-20%- NICM), moderate to severe MR, moderate AR, moderate to severe TR, HTN, GERD, CKD3A who is here for continued edema in legs and abdomen. She denies SOB, but was hypoxic on arrival
requiring O2 by AL. Her weight is up 15 lbs from last admit. She saw her fireperson last week and spironolactone was increased and furosemide was transitioned to torsemide. However, her symptoms did not improve and she is not urinating much at
home. Of note, she was hospitalized here about 2 months ago and had milrinone assistent diuresis (lasix drip) after heart cath showed severely elevated biventricular filling pressures and severely reduced cardiac output. She is in no distress at the
time of my assessment.
Past Medical History
Past Medical History: CHF, GERD, HTN, Valvular Disease and Other (as above)
Social History
Tobacco: Non-Smoker
Family History
Family History: Reviewed & Not Pertinent
Allergies / Home Medications
Allergy/AdvReac Type Severity Reaction Status Date / Time
No Known Allergies Allergy Unverified 02/01/25 18:21
�Medication �Instructions �Recorded �Confirmed �Type
cevimeline 30 mg capsule 1 cap PO TID Xerostomia 11/25/24 02/01/25 History
cholecalciferol (vitamin D3) 50 50 mcg PO DAILY Supplement 11/25/24 02/01/25 History
mcg (2,000 unit) tablet (Vitamin
D3)
dorzolamide 22.3 mg-timolol 6.8 1 drp BOTH EYES BID Eye Condition 11/25/24 02/01/25 History
mg/mL eye drops (Cosopt)
famotidine 40 mg tablet (Pepcid) 20 mg PO BID Gastrointestinal Issue 11/25/24 02/01/25 History
pantoprazole 40 mg tablet,delayed 40 mg PO DAILY Gastrointestinal 11/25/24 02/01/25 History
release (Protonix) Issue
sertraline 50 mg tablet 150 mg PO DAILY Depression 11/25/24 02/01/25 History
therapeutic multivitamin 1 tab PO DAILY Supplement 11/25/24 02/01/25 History
metoprolol succinate 25 mg 25 mg PO DAILY@2000 30 days #30 12/07/24 02/01/25 Rx
tablet,extended release 24 hr tabs
sacubitril 24 mg-valsartan 26 mg 1 tab PO BID 30 days #60 tabs 12/07/24 02/01/25 Rx
tablet (Entresto)
clobetasol 0.05 % topical gel 1 applic topical BID 02/01/25 02/01/25 History
empagliflozin 10 mg tablet 10 mg PO DAILY 02/01/25 02/01/25 History
(Jardiance)
spironolactone 25 mg tablet 25 mg PO DAILY 02/01/25 02/01/25 History
torsemide 40 mg tablet 40 mg PO DAILY 02/01/25 02/01/25 History
trazodone 50 mg tablet 50 mg PO HS 02/01/25 02/01/25 History
Review of Systems
-
History Source: Patient
All other systems: Negative unless noted
Constitutional: Weight Gain
Musculoskeletal: Edema
Physical Exam
Vital Signs
Temp Pulse Resp BP Pulse Ox
97.5 F 91 18 137/78 96
02/02/25 07:26 02/02/25 07:26 02/02/25 07:26 02/02/25 03:31 02/02/25 07:26
Lab Results
02/02/25 03:50
02/02/25 04:42
Troponin I 0.187 ng/ml H* 02/01/25 18:26
Ygw-J-Ipmkljonmoe Pept > 57084 pg/ml 02/01/25 18:26
Physical Exam
General: No Apparent Distress
HEENT: Normocephalic and Anicteric
Respiratory: Other (diminished, on O2 by NC)
Cardiac: Regular Rhythm
GI: Other (abdominal bloating)
Musculoskeletal: Edema (moderate BLE edema)
Skin: Warm and Dry
Neuro: AO x 3
Psych: Calm
Impression / Plan
-
Qdbjd-xf-ryukmfs HFrEF, NICM EF 15-20%:
-severe exacerbation, requiring hospitalization and IV diuretics
-Echo 11/26/24: EF 15-20%. Severe global hypokinesis with septal dyskinesis. Low normal right ventricular systolic and function. Severely dilated left atrium. Severely dilated right atrium. Moderate to severe mitral regurgitation. Aortic sclerosis
without stenosis. Moderate aortic regurgitation. Moderate to severe tricuspid regurgitation. Estimated pulmonary artery pressure of 60-65 mmHg. The IVC is dilated and does not collapse.
-continue IV diuresis and monitor response- will increase dosing. IV lasix requires intensive monitoring. It should be noted that she required milrinone/furosemide drip last admit. Hospice/palliative care was discussed during that hospitalization,
but ultimately decided against at that time by patient/family per chart. This discussion may need to be revisited.
-she is up 15 lbs from hospitalization 2 months ago
-Continue GDMT with Entresto, spironolactone, metoprolol, and SGLT2I
HTN:
-stable on meds
-monitor with diuresis
Abnormal troponin:
-acute, non-ischemic myocardial injury secondary to CHF exacerbation, hypoxemia
Data Reviewed
-
EKG: Tracing Personally Visualized and interpreted (SR with LVH, suspect arm lead reversal, will repeat)
Radiology: Report Reviewed by me (Small bilateral pleural effusions. Bilateral infrahilar pulmonary opacities, left greater than right. No pneumothorax. Stable enlarged cardiac silhouette. )
Medical Tests (Nuc Med, Echo etc): Report Reviewed by me (cath 12/02/24: Severely elevated biventricular filling pressures and severely reduced cardiac output 2. Mild coronary artery disease in a right dominant system) and Other (Echo as noted)
Labs: Labs Reviewed by me
[2025-02-02] MEDS: ALDACTONE 25 MG PO (09:13)
[2025-02-02] MEDS: FARXIGA 10 MG PO (09:14)
[2025-02-02] MEDS: ENTRESTO 24 MG/26 MG 1 TAB PO ×2 (09:14→19:36)
[2025-02-02] MEDS: HEPARIN 5000 UNITS SC ×3 (09:14→23:14)
[2025-02-02] MEDS: PEPCID 20 MG PO (09:15)
[2025-02-02] MEDS: PROTONIX 40 MG PO (09:17)
[2025-02-02] MEDS: VITAMIN D3 (cholecalciferol) 50 MCG PO (09:17)
[2025-02-02] MEDS: THERAGRAN 1 TABLET PO (09:17)
[2025-02-02] MEDS: FLUSH (NSS) 2 FLUSH IV ×3 (09:18→10:12)
[2025-02-02] MEDS: LASIX 80 MG IV ×2 (10:10→16:08)
--- NOTE | 2025-02-02 11:50 | PTCARENOTE ---
Patient resting in bed this morning, visibly upset after speaking with Dr. Sampson, stated 'I just found out I'm dying'. Patient did not seem to remember recent hospitalization for heart failure, emotional support given. Telephoned her daughter
with her cell phone and she was aware of the conversation after speaking with cardiology this morning too. Patient assisted to the bathroom and sitting oob in the chair now with alarm in place. Her daughter will be in later today to visit. Call nation
in reach.
--- NOTE | 2025-02-02 14:06 | CM ---
Chart reviewed. 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 Patient recently discharged from [facility]. Patient is
current with [facility]. Patient also has a private mold swabber who comes to the house M/W/F 4 hours a day. PT/OT evaluation to assess patients discharge needs. CM to follow
--- NOTE | 2025-02-02 14:12 | W.PN.UPDATE ---
Update Note
Progress Note Update
Dr. Sampson spoke to patient's daughter (Brittnee) and her primary Desktop Administrator (Dr. Raulito Gonzalez) to let them know that she has end-stage cardiomyopathy and that palliative care is recommended. Patient will need inpatient/outpatient palliative care.
Continue Lasix 80 mg IV twice daily for now. The daughter is a social science research assistant and understands all of this and accepts it. Her primary Desktop Administrator understands and agrees as well. Thanks.
[2025-02-02] MEDS: TOPROL XL 25 MG PO (19:35)
--- NOTE | 2025-02-02 20:13 | PTCARENOTE ---
Pt rec'd at change of shift with daughter at bedside. Awake,alert occ moist cough. Crackles noted in left base on R/A. call nation within reach.
[2025-02-02] MEDS: ZOLOFT 150 MG PO (23:14)
--- NOTE | 2025-02-02 23:45 | PTCARENOTE ---
After HS meds pt became nauseated vomited small amt of sputum. Pt continues with Freq productive cough with clear sputum noted. sat at HS 85% on R/A,pt placed on 2 lit n/c with sat up to 93%
[2025-02-03] VITALS (10 sets, daily range): BP systolic 110–139; BP diastolic 71–102; BMI 22.5
--- NOTE | 2025-02-03 00:17 | W.PN.UPDATE ---
Update Note
Progress Note Update
Called in to see the patient as she was having nose bleed and she was spitting up blood. almost half of the emesis basin with mucous, spit, blood noted.
Patient seen and evaluated. Bleed noted to be coming from left nares also noted nasal drip back of the throat (posterior nasal bleed?). Reports she has had nose bleed in the past from the same nose before and and stops after a while.
Reports nausea likely due to nasal drip. Coughing , swallowing and spitting in between, RN suctioning prn, pressure place left nares, ice pack, HOB elevated, Afrin spray with gauze packing, Benadryl IV for nausea
133/70 91 24 88-94% RA, placed on aerosol mask 28%
Nose bleed has stopped, no nasal drip noted anymore, hgb stable VS stable, patient resting in bed comfortably at present.
Epistaxis likely due to Heparin?
will hold Heparin SubQ
[2025-02-03] MEDS: AFRIN NASAL SPRAY 1 SPRAYS NASAL ×2 (00:27→11:08)
[2025-02-03] MEDS: BENADRYL 12.5 MG IV (00:31)
--- NOTE | 2025-02-03 00:50 | PTCARENOTE ---
At approx 0005 pt called nursing to room. Pt found with blood running out left nare and blood noted all over pts sheets and in her mouth. House Didactic Instructor called to come see pt. Pt vomited up large blood clot in basin. pressure applied to left nare for 15
mins. no further vomiting from mouth. Afrin nasal spray placed on gauze and placed in left nare. RR elevated 28 with sats ranging from 85-93%. Rsp called to come place humidified aerosol setup.
--- NOTE | 2025-02-03 01:13 | PTCARENOTE ---
Pt resting at present with aerosol mask at 28%. No further bleeding noted. awaiting results from stat h/H
[2025-02-03 01:15] LABS: Hematocrit 42.9 % (37.0-47.0); Hemoglobin 15.7 g/dL (12.0-16.0)
--- NOTE | 2025-02-03 02:33 | PTCARENOTE ---
Pt again with blood on her face and coming form left nare. Gauze removed with 2 long stringy clots noted. Pressure applied x 10 mins, new gauze placed in left nare. Aerosol mask continued at 28%. sats without O2 noted in mid 80's up to 94% with O2
support.
[2025-02-03 04:18] LABS: Hematocrit 41.0 % (37.0-47.0); Hemoglobin 14.4 g/dL (12.0-16.0); Mean Corp Hgb Conc. 35.1 g/dL (33.0-37.0); Mean Corpuscular Volume 126.9 fL (81.0-99.0); Platelet Count 150 10^3/uL (130-400); Red Cell Dist. Width 22.2 % (11.5-14.5)
[2025-02-03 04:36] LABS: ALT (SGPT) 29 U/L (0-35); AST (SGOT) 37 U/L (14-36); Albumin 3.3 g/dl (3.5-5.0); Alkaline Phosphatase 60 U/L (38-126); Blood Urea Nitrogen 49 mg/dl (7-17); Calcium 8.2 mg/dl (8.4-10.2); Carbon Dioxide 27 mmol/L (22-30); Chloride 102 mmol/L (98-107); Estimated Creatinine Clearance 30 ml/min; Glucose 109 mg/dl (70-99); Magnesium 2.2 mg/dl (1.6-2.3); Potassium 4.1 mmol/L (3.5-5.1); Sodium 138 mmol/L (135-145); Total Protein 6.2 g/dl (6.3-8.2); eGFR 50.17
--- NOTE | 2025-02-03 07:09 | W.PN.HOSP.TC ---
Today's Communication/Plan
-
-Bedrest for now until we figure out whether patient can get IVC filter vs. anticoagulation (ENT is consulted)
-AVOIDS SCDs in the RLE OR ANY LEG COMPRESSION to the RLE
Assessment / Plan
Assessment / Plan
Physical Exam
General: Not in acute distress
HEENT: Normocephalic, Moist mucous membranes
Respiratory: Decreased Breath Sounds Bilaterally. ON 3 L NASAL CANNULA OXYGEN (UP FROM 2 L).
Cardiac: S1/S2, Regular Rhythm
GI: Soft, Non Tender, Normal Bowel Sounds
Musculoskeletal: Peripheral Edema (Bilateral Lower Extremity edema)
Skin: Warm. Dry.
Neuro: Awake, AO x 3 and Nonfocal/grossly intact
Psych: Calm and Intact Judgment/Insight
Assessment/Plan
84 y female with past medical history significant for depression, HFrEF (previously required Milrinone-assisted diuresis), hypertension, GERD and CKD III who presented to the [facility] ED complaining of abdominal distention, LE edema and weight gain.
Patient noted progressive symptoms over the past week or two prior to presentation. Recently, she had her medications adjusted by her primary Shop Welder (changed Lasix to Torsemide, increased Aldactone) with no appreciable improvement. She
presented to the ED today for further evaluation. Patient complained of significant fatigue. She denied any chest pain. She perhaps had mild dyspnea with activity. She also states she does not feel she has been urinating as much as she normally
does.
#Aqvic-rt-Lppwcdb HFrEF
#Non-Ischemic Cardiomyopathy (LVEF ~15%)
- Continue to monitor in IVU
- Consult cardiology
- Continue Jardiance/Farxiga, Entresto, Metoprolol and spironolactone
- Hold PO torsemide
- Continue IV Lasix
#Epistaxis overnight 02/02/25-02/03/25
#History of Epistaxis
-Per my communication with patient's nurse on 02/03/25, the nosebleeding was significant needing to pressure, Afrin, and holding chemical DVT prophylaxis
-Consulted ENT to see whether the bleeding can be stopped given that patient now has DVT and would need anticoagulation versus IVC filter
#RLE DVT -- diagnosed on 02/03/25
#Right Ventricular enlargement on echocardiogram
-Question of whether safe to start anticoagulation in this patient given epistaxis above
-Pulmonary consulted given RV enlargement on echo and concern for PE
-ENT consulted to see whether epistaxis can be fixed so that anticoagulation can be started
-Bedrest for now until we figure out whether patient can get IVC filter vs. anticoagulation
-AVOIDS SCDs OR ANY LEG COMPRESSION
#hypertension
- continue metoprolol
#GERD
- continue famotidine and pantoprazole
#depression
- continue sertraline
#CKD IIIa
BUN 42, Creat 1.2, eGFR 56.25
- monitor BMP
Code status: DNR
DVT prophylaxis: Heparin subq on hold given significant epistaxis. No SCDs in the RLE given DVT.
On 02/03/25, I called patient's daughter Brittnee, I let her know about patient's DVT and evaluation/management plan going forward, and I answered all of her questions and concerns to satisfaction.
Anticipated Discharge: > 48 hours
Subjective/Interval History
-
Date of Service: February 03, 2025
Patient was seen and examined. Overnight she had nosebleed with clots as per nurse. This morning, patient denied any new symptoms or complaints.
Objective Data
-
Labs:
Laboratory Results
02/03/25 02/03/25
00:28 03:56
WBC 6.3
Hgb 15.7 14.4
Hct 42.9 41.0
Plt Count 150
Sodium 138
Potassium 4.1
Chloride 102
Carbon Dioxide 27
BUN 49 H
Creatinine 1.1 H
Glucose 109 H
Calcium 8.2 L
Total Bilirubin 3.4 H
AST 37 H
ALT 29
Alkaline Phosphatase 60
Vital Signs:
Vital Signs
Temp Pulse Resp BP Pulse Ox
98.1 F 82 24 127/79 90
02/03/25 03:52 02/03/25 03:52 02/03/25 03:52 02/03/25 03:52 02/03/25 01:00
I&O
02/02/25 02/03/25 02/04/25
06:59 06:59 06:59
Intake Total 240 / 240 240 / 240
Output Total 75 / 75 150 / 150
Balance 165 / 165 90 / 90
[2025-02-03] MEDS: THERAGRAN 1 TABLET PO (09:53)
[2025-02-03] MEDS: PEPCID 20 MG PO (09:53)
[2025-02-03] MEDS: PROTONIX 40 MG PO (09:53)
[2025-02-03] MEDS: ALDACTONE 25 MG PO (09:53)
[2025-02-03] MEDS: ENTRESTO 24 MG/26 MG 1 TAB PO ×2 (09:54→20:18)
[2025-02-03] MEDS: TIMOPTIC 0.25% OPHTHALMIC SOLUTION 1 DROP BOTH EYES ×2 (09:54→20:18)
[2025-02-03] MEDS: VITAMIN D3 (cholecalciferol) 50 MCG PO (09:54)
[2025-02-03] MEDS: FARXIGA 10 MG PO (09:54)
[2025-02-03] MEDS: TRUSOPT 2% OPHTHALMIC SOLUTION 1 DROP BOTH EYES ×2 (09:54→20:18)
[2025-02-03] MEDS: FLUSH (NSS) 2 FLUSH IV (09:55)
[2025-02-03] MEDS: LASIX IV (09:55)
--- NOTE | 2025-02-03 09:55 | W.PN.CD ---
Addendum entered and electronically signed by Kaz Sampson MD 02/03/25 16:03:
Patient seen and examined in collaboration with [employer]; agree with below.
- Continue Lasix 80 mg IV BID.
- Will add metolazone 2.5 mg BID.
- Palliative care recommended.
Original Note:
Today's Communication / Plan
-
Continue IV Lasix
Recommend palliative care consult- see note for details
Impression / Plan
-
Lreyl-hi-djrjxph HFrEF, NICM EF 15-20%:
-severe exacerbation, requiring hospitalization and IV diuretics
-Echo 11/26/24: EF 15-20%. Severe global hypokinesis with septal dyskinesis. Low normal right ventricular systolic and function. Severely dilated left atrium. Severely dilated right atrium. Moderate to severe mitral regurgitation. Aortic sclerosis
without stenosis. Moderate aortic regurgitation. Moderate to severe tricuspid regurgitation. Estimated pulmonary artery pressure of 60-65 mmHg. The IVC is dilated and does not collapse.
-of note, last admit, she required milrinone/furosemide drip. Hospice/palliative care was discussed during that hospitalization, but ultimately decided against at that time by patient/family per chart.
-she is up 15 lbs from hospitalization 2 months ago despite medications for CHF.
-Continue GDMT with Entresto, spironolactone, metoprolol, and SGLT2I. Continue Lasix 80 mg IV BID for now- this requires intensive monitoring. Weight not in yet this AM- I asked nursing to obtain. However, patient is feeling better today than she
was yesterday.
-Dr. Sampson discussed recommendation for palliative care with patient, her daughter, her supervisor plastics, and hospitalist. Conservative management overall as patient has overall poor prognosis.
HTN:
-stable on meds
-monitor with diuresis
Abnormal troponin:
-acute, non-ischemic myocardial injury secondary to CHF exacerbation, hypoxemia
Physical Exam
Vital Signs/Labs
Vital Signs
Temp Pulse Resp BP Pulse Ox
97.5 F 84 18 131/75 93
02/03/25 08:00 02/03/25 08:00 02/03/25 08:00 02/03/25 08:00 02/03/25 08:15
02/02/25 02/03/25 02/04/25
06:59 06:59 06:59
Actual Weight 54.2 kg
02/03/25 03:56
02/03/25 03:56
PT 17.3 Sec (11.4-14.6) H 02/01/25 18:26
INR 1.39 02/01/25 18:26
Magnesium 2.2 mg/dl (1.6-2.3) 02/03/25 03:56
02/01/25
18:26
Aft-D-Riygipfgqkh Pept > 02098
LAB Results
02/01/25
18:26
Troponin I 0.187 H*
Physical Exam
Constitutional: No acute distress
EENT: Anicteric
Cardiovascular: Rhythm & rate is regular and Pedal edema present
Respiratory: Respiratory effort normal and Crackles Present (bases)
Neuro/Psych: AO x 3
Data Reviewed
-
Date of Service: February 03, 2025
EKG: Other (SR on telemetry)
Labs: Labs Reviewed by me
--- NOTE | 2025-02-03 10:30 | PTCARENOTE ---
No further epistaxis noted, Dr. Mckeon in to see the patient and notified of last night's events. Placed switched back to nasal canula from face tent which patient was having difficulty tolerating, pulse ox 97% on 3L, patient sent to ultrasound
as ordered.
[2025-02-03] MEDS: ZAROXOLYN 2.5 MG PO ×2 (11:06→16:57)
[2025-02-03] MEDS: LASIX 80 MG IV ×2 (11:44→17:27)
--- NOTE | 2025-02-03 12:38 | CON.PUL ---
Consultation
Consultation Request
Date/Time Consultation Requested: 02/03/25
Date/Time Consultation Performed: 02/03/25
Performing Provider: Eriberto
Reason for Consultation: DVT
Medical History
-
History of Present Illness:
Patient is an 84-year-old female with previous history of heart failure with reduced ejection fraction, hypertension, chronic kidney disease presenting to ER with abdominal distention, lower extremity edema and weight gain. She is notably in
acute on chronic heart failure exacerbation. She has known nonischemic cardiomyopathy with EF 10-15%. Had lower extremity Dopplers demonstrating DVT, overnight developed epistaxis with discontinuation of her prophylactic heparin dosing. She has
echocardiogram findings of reduced EF, RV dysfunction, pulmonary hypertension with concern for possible concurrent PE. She was originally placed on 2 L nasal cannula but now changed to face tent due to epistaxis. She is not known to be on oxygen
at home.
Allergies / Home Medications
Allergies
Allergy/AdvReac Type Severity Reaction Status Date / Time
No Known Allergies Allergy Unverified 02/01/25 18:21
Home Medications
�Medication �Instructions �Recorded �Confirmed �Last Taken �Type
cevimeline 30 mg capsule 1 cap PO TID Xerostomia 11/25/24 02/01/25 02/01/25 History
cholecalciferol (vitamin D3) 50 50 mcg PO DAILY Supplement 11/25/24 02/01/25 02/01/25 History
mcg (2,000 unit) tablet (Vitamin
D3)
dorzolamide 22.3 mg-timolol 6.8 1 drp BOTH EYES BID Eye Condition 11/25/24 02/01/25 02/01/25 History
mg/mL eye drops (Cosopt)
famotidine 40 mg tablet (Pepcid) 20 mg PO BID Gastrointestinal Issue 11/25/24 02/01/25 02/01/25 History
pantoprazole 40 mg tablet,delayed 40 mg PO DAILY Gastrointestinal 11/25/24 02/01/25 02/01/25 History
release (Protonix) Issue
sertraline 50 mg tablet 150 mg PO DAILY Depression 11/25/24 02/01/25 02/01/25 History
therapeutic multivitamin 1 tab PO DAILY Supplement 11/25/24 02/01/25 02/01/25 History
metoprolol succinate 25 mg 25 mg PO DAILY@2000 30 days #30 12/07/24 02/01/25 02/01/25 Rx
tablet,extended release 24 hr tabs
sacubitril 24 mg-valsartan 26 mg 1 tab PO BID 30 days #60 tabs 12/07/24 02/01/25 02/01/25 Rx
tablet (Entresto)
clobetasol 0.05 % topical gel 1 applic topical BID 02/01/25 02/01/25 02/01/25 History
Anti-Inflammatory
empagliflozin 10 mg tablet 10 mg PO DAILY Diabetes 02/01/25 02/01/25 02/01/25 History
(Jardiance)
spironolactone 25 mg tablet 25 mg PO DAILY Heart 02/01/25 02/01/25 02/01/25 History
Disease/Condition
torsemide 40 mg tablet 40 mg PO DAILY Fluid 02/01/25 02/01/25 02/01/25 History
Retention/Swelling
trazodone 50 mg tablet 50 mg PO HS Sleep 02/01/25 02/01/25 02/01/25 History
Review of Systems
Vitals / Labs / Diagnostic Testing
Vital Signs
Temp Pulse Resp BP Pulse Ox
97.3 F 80 16 125/71 97
02/03/25 12:06 02/03/25 12:07 02/03/25 12:06 02/03/25 12:07 02/03/25 12:06
Lab Data
02/03/25 03:56
02/03/25 03:56
Diagnostic Testing:
Assessment
-
Patient is an 84-year-old female with previous history of heart failure with reduced ejection fraction, hypertension, chronic kidney disease presenting to ER with abdominal distention, lower extremity edema and weight gain. She is notably in
acute on chronic heart failure exacerbation. She has known nonischemic cardiomyopathy with EF 10-15%. Had lower extremity Dopplers demonstrating DVT, overnight developed epistaxis with discontinuation of her prophylactic heparin dosing. She has
echocardiogram findings of reduced EF, RV dysfunction, pulmonary hypertension with concern for possible concurrent PE. She was originally placed on 2 L nasal cannula but now changed to face tent due to epistaxis. She is not known to be on oxygen
at home.
Acute on chronic heart failure exacerbation with reduced EF
Acute hypoxic respiratory failure
Acute RLE DVT, suspect PE
RV dysfunction, pulmonary hypertension
Lower extremity edema
Calf pain
Shortness of breath
Epistaxis
Conditions present prior to admission
Chronic HFrEF
Non-Ischemic Cardiomyopathy (LVEF 10-15%)
Benign Hypertension
CKD III
GERD
Depression
Plan
Hypoxemia noted on arrival, she is placed on 2L NC
No oxygen is needed at baseline at home
Home O2 evaluation eventually post diuresis
Prior history of lung disease is NOT noted--she has chest x-ray demonstrating effusion
Suspect patient has acute on chronic heart failure
She is placed on IV diuresis, she has noted to be end-stage per her outpatient mortgage banker
Underwent ultrasound demonstrating right lower extremity DVT, there is suspicion of PE based on her echo
I would not pursue scanning as this would not foreign exchange dealer
She would need oral anticoagulation course regardless of results of CTA versus VQ scan
Epistaxis noted, ENT consult obtained
Once evaluation and clearance for oral anticoagulation is given by ENT, can initiate 10 mg of Eliquis tonight
Otherwise, we will need to pursue IVC filter
Cards following for acute on chronic heart failure
Prior ECHO results are reviewed indicating EF 10 to 15%
Output has been very minimal, may consider milrinone therapy
Creatinine noted to be 1.1
Given her end-stage cardiomyopathy, would not be unreasonable to initiate palliative care discussions
Hospice evaluation had been completed back in November but patient was not ready for hospice at that point
I would reassess this if she has no clinical improvement or is unable to proceed with oral anticoagulation course
She is currently DNR
We will follow
Diagnostic Data
Chest X-Ray: 02/01/25- Small bilateral pleural effusions. Bilateral infrahilar pulmonary opacities, left greater than right, favored to be secondary to pulmonary edema. Pneumonia would be an alternative consideration in the appropriate clinical
setting. No pneumothorax. Stable enlarged cardiac silhouette. Chronic degenerative changes of the spine.
11/25/24- Suspect mild CHF. Small bilateral pleural effusions with associated atelectasis and/or pneumonia. Cannot rule out component of underlying chronic interstitial lung disease.
CT Scan: AP 11/25/24- Marked edematous changes of the posterior/lateral abdominal and pelvic christina, left greater than right without discrete finding to suggest a posterior abdominal wall focal hematoma although evaluation limited. Grossly intact solid
organs of the abdomen. Symmetric renal excretion. Mild hepatomegaly. Subcentimeter low-attenuation left renal lesion too small to characterize.
Small volume ascites. At least moderate right and small left pleural effusions, partially included on this study. Aerated portions of lungs contain some nonspecific mild groundglass opacities.
Heterogeneous appearance of the uterus. Cannot exclude space-occupying lesion. Cardiomegaly.
US legs 02/03/25- Nonocclusive thrombus in the right peroneal vein and posterior division of the right posterior tibial vein. No evidence of deep venous thrombosis of the left lower extremity.
Echo: 02/02/25- Left ventricular cavity size is 5.06 cm which is mildly increased. Moderate eccentric left ventricular hypertrophy. Multiple left ventricular segmental wall motion abnormalities are noted, as described below. Severely decreased left
ventricular function. Ejection fraction is 15-20% by visual assessment.
Right ventricular cavity size is moderately dilated. Right ventricular systolic function is mildly decreased. Indexed left atrial volume is severely abnormal (>48 ml/m2). Severely dilated right atrium.
Moderate mitral annular calcification. The mitral annulus is dilated. moderate to severe mitral valve regurgitation. Moderate aortic regurgitation.
Tricuspid valve opens normally. Mild to moderate tricuspid regurgitation. Estimated pulmonary artery pressure of 36 mmHg assuming a right atrial pressure of 3 mmHg. Left pleural effusion is noted.
Compared to a prior transthoracic echocardiogram study from 11/26/2024 no significant changes are seen.
[facility] 12/02/24- HEMODYNAMIC DATA: AO 122/67 (mean 88) mmHg - RA 11 mmHg - RV 58/7 (EDP 11) mmHg - PA 58/28 (mean 39) mmHg - PCWP 31 mmHg
SaO2 90.6% - SvO2 46.5% - Hb 12.1 g/dL - CO/CI 2.59/1.72 L/min/m2 - SVR 2376 dsc*-5 - PVR 3.1 Wood units
PFT's:
Reports and relevant images were personally reviewed.
Total time spent on this consultation __75__ minutes which includes review of history, physical exam, medications, laboratory data, personal review of imaging, extensive review of outpatient records, discussion with care team and respiratory therapy.
--- NOTE | 2025-02-03 14:41 | CON.MD ---
Consultation - Medical
-
84 yo c cardiomyopathy, CHF admitted c SOB
Last night developed epistaxis from L nares, has been an intermittent issue for a few weeks
No congestion, presently not bleeding
Was on subQ heparin, being held
On Nasal O2 via nasal cannula
PE - Dry , irritated nasal mucosa bilat , L > R, but no active bleeding or clots
OC - dry
A/P Epistaxis
Presently not bleeding
likely from dryness, heparin and nasal cannula
Ok to continue nasal cannula , but switch to mask if continues
Hold Heparin for a few days
Saline gel or similar antibiotic ointment BID (including qhs) to minimize epistaxis
--- NOTE | 2025-02-03 15:15 | CM ---
Pricing on [employer] through the patients [employer], ID# [id number] is $38 for a 90 day supply mail order and $43 for 30 day retail.
[2025-02-03] MEDS: AYR SALINE NASAL GEL 1 APPLIC NASAL ×2 (16:56→22:24)
--- NOTE | 2025-02-03 18:27 | W.PN.UPDATE ---
Update Note
Progress Note Update
Just now, I discussed patient's case with ENT physician Dr. Raulito Ramos and pulmonary physician Dr. Wei. Dr. Ramos recommended holding off on any anticoagulation or blood thinners tonight, and starting anticoagulation tomorrow morning. We
agreed that the best plan is to start with Heparin Drip DVT/PE protocol, without the initial loading bolus, tomorrow morning, to make sure that patient is able to tolerate anticoagulation (e.g. no bleeding).
--- NOTE | 2025-02-03 19:18 | PTCARENOTE ---
Patient tolerated sitting oob in the chair, family in all afternoon visiting. Patient very fatigued, sleeping off and on throughout the day, very poor appetite. No further epistaxis, on 3L NC, call nation in reach and lying back in bed now.
[2025-02-03] MEDS: TOPROL XL 25 MG PO (20:18)
[2025-02-03] MEDS: ZOLOFT 150 MG PO (22:23)
--- NOTE | 2025-02-03 23:35 | PTCARENOTE ---
Pt rec'd at beginning of shift awake,alert in sinus rhythm with BBB. Pt given complete bed bath by PCT with new pure wick placed . Pt making quick jokes on rounds with nursing staff however at HS pt asked nursing ' Is this cognitive awareness when
your dying'. Emotional support given to pt.
Pt with no further nose bleeds as noted yesterday and also seems to have minimal coughing with no vomiting. call nation within reach.
[2025-02-04 03:39] VITALS: BP 115/67
[2025-02-04 04:04] LABS: Hematocrit 41.6 % (37.0-47.0); Hemoglobin 15.1 g/dL (12.0-16.0); Mean Corp Hgb Conc. 36.3 g/dL (33.0-37.0); Mean Corpuscular Volume 123.4 fL (81.0-99.0); Platelet Count 149 10^3/uL (130-400); Red Cell Dist. Width 21.8 % (11.5-14.5)
[2025-02-04 04:51] LABS: ALT (SGPT) 29 U/L (0-35); AST (SGOT) 40 U/L (14-36); Albumin 3.3 g/dl (3.5-5.0); Alkaline Phosphatase 64 U/L (38-126); Blood Urea Nitrogen 55 mg/dl (7-17); Calcium 8.3 mg/dl (8.4-10.2); Carbon Dioxide 27 mmol/L (22-30); Chloride 102 mmol/L (98-107); Estimated Creatinine Clearance 27 ml/min; Glucose 104 mg/dl (70-99); Magnesium 2.1 mg/dl (1.6-2.3); Potassium 4.1 mmol/L (3.5-5.1); Sodium 135 mmol/L (135-145); Total Protein 6.3 g/dl (6.3-8.2); eGFR 45.19
--- NOTE | 2025-02-04 08:26 | W.PN.HOSP.TC ---
Today's Communication/Plan
-
Home with home hospice tomorrow -- spoke with rn field case manager who said everything will be set up for patient to go to home with home hospice tomorrow
Patient and her daughter declined any further blood draws or any anticoagulation while in hospital, but continue all the other meds
Assessment / Plan
Assessment / Plan
Physical Exam
General: Not in acute distress
HEENT: Normocephalic, Moist mucous membranes
Respiratory: Decreased Breath Sounds Bilaterally. ON 3 L NASAL CANNULA OXYGEN (UP FROM 2 L).
Cardiac: S1/S2, Regular Rhythm
GI: Soft, Non Tender, Normal Bowel Sounds
Musculoskeletal: Peripheral Edema (Bilateral Lower Extremity edema)
Skin: Warm. Dry.
Neuro: Awake, AO x 3 and Nonfocal/grossly intact
Psych: Calm and Intact Judgment/Insight
Assessment/Plan
84 y female with past medical history significant for depression, HFrEF (previously required Milrinone-assisted diuresis), hypertension, GERD and CKD III who presented to the [facility] ED complaining of abdominal distention, LE edema and weight gain.
Patient noted progressive symptoms over the past week or two prior to presentation. Recently, she had her medications adjusted by her primary Paint Coating Machine Operator (changed Lasix to Torsemide, increased Aldactone) with no appreciable improvement. She
presented to the ED today for further evaluation. Patient complained of significant fatigue. She denied any chest pain. She perhaps had mild dyspnea with activity. She also states she does not feel she has been urinating as much as she normally
does.
#[id number] HFrEF
#Non-Ischemic Cardiomyopathy (LVEF ~15%)
- Continue to monitor in IVU
- Consult cardiology
- Continue Jardiance/Farxiga, Entresto, Metoprolol Succinate and Spironolactone
- Hold PO torsemide
- Continue IV Lasix 80 mg BID
- Metolazone as per cardiology added on 02/03/25
#Epistaxis overnight 02/02/25-02/03/25
#History of Epistaxis
-Per my communication with patient's nurse on 02/03/25, the nosebleeding was significant needing to pressure, Afrin, and holding chemical DVT prophylaxis
-Consulted ENT -- nosebleed likely from nasal cannula, dryness, and heparin
-Saline gel or similar antibiotic ointment BID (including qhs) to minimize recurrent epistaxis
#RLE DVT -- diagnosed on 02/03/25
#Right Ventricular enlargement on echocardiogram
-Heparin Drip was ordered, but patient is a hard stick and declined any further blood draws
-I explained to patient and her daughter Brittnee that it is unsafe to do Heparin Drip without doing blood draws to check coag labs
-Since patient will go to home with home hospice tomorrow, they declined any anticoagulation at this time
#hypertension
- continue metoprolol
#GERD
- continue famotidine and pantoprazole
#depression
- continue sertraline
#CKD IIIa
BUN 42, Creat 1.2, eGFR 56.25
- monitor BMP
Code status: DNR
DVT prophylaxis: Heparin subq
On 02/03/25, I called patient's daughter Brittnee, I let her know about patient's DVT and evaluation/management plan going forward, and I answered all of her questions and concerns to satisfaction.
On 02/04/25, I spoke with both patient and patient's daughter Brittnee, and the plan is for patient to go to home with home hospice tomorrow.
Anticipated Discharge: Within 24 hours
Subjective/Interval History
-
Date of Service: February 04, 2025
Patient was seen and examined. No further nosebleeds overnight. She denied any new symptoms or complaints.
Objective Data
-
Labs:
Laboratory Results
02/04/25 02/04/25
03:51 07:57
WBC 8.6 Pending
Hgb 15.1 Pending
Hct 41.6 Pending
Plt Count 149 Pending
APTT Pending
Sodium 135
Potassium 4.1
Chloride 102
Carbon Dioxide 27
BUN 55 H
Creatinine 1.2 H
Glucose 104 H
Calcium 8.3 L
Total Bilirubin 3.4 H
AST 40 H
ALT 29
Alkaline Phosphatase 64
Vital Signs:
Vital Signs
Temp Pulse Resp BP Pulse Ox
98.3 F 74 20 115/67 85
02/03/25 23:28 02/04/25 03:39 02/03/25 23:28 02/04/25 03:39 02/04/25 03:39
I&O
02/03/25 02/04/25 02/05/25
06:59 06:59 06:59
Intake Total 240 / 240 50 / 50
Output Total 150 / 150 2049 / 2049
Balance / -1999 /
[2025-02-04] MEDS: PEPCID 20 MG PO (08:41)
[2025-02-04] MEDS: ALDACTONE 25 MG PO (08:42)
[2025-02-04 08:44] VITALS: BP 124/71
[2025-02-04] MEDS: ENTRESTO 24 MG/26 MG 1 TAB PO ×2 (08:44→19:54)
[2025-02-04] MEDS: FARXIGA 10 MG PO (08:44)
[2025-02-04] MEDS: THERAGRAN 1 TABLET PO (08:44)
[2025-02-04] MEDS: ZAROXOLYN 2.5 MG PO ×2 (08:44→15:49)
[2025-02-04] MEDS: VITAMIN D3 (cholecalciferol) 50 MCG PO (08:44)
[2025-02-04] MEDS: TRUSOPT 2% OPHTHALMIC SOLUTION 1 DROP BOTH EYES ×2 (08:45→19:54)
[2025-02-04] MEDS: LASIX 80 MG IV ×2 (08:45→15:51)
[2025-02-04] MEDS: PROTONIX 40 MG PO (08:45)
[2025-02-04] MEDS: TIMOPTIC 0.25% OPHTHALMIC SOLUTION 1 DROP BOTH EYES ×2 (08:45→19:55)
[2025-02-04] MEDS: AYR SALINE NASAL GEL 1 APPLIC NASAL ×2 (08:47→22:39)
--- NOTE | 2025-02-04 09:16 | W.PN.CD ---
Today's Communication / Plan
-
-On Entresto, spironolactone, metoprolol succinate, and SGLT2I. Continue Lasix 80 mg IV BID for now- this requires intensive monitoring.
-Metolazone added yesterday.
-Poor prognosis; patient becoming nauseous, tachycardic, and BUN/creatinine starting to increase.
-New DVT--management as per primary team; currently on a heparin drip.
-Daughter Stella) at bedside this a.m.; discussed plans to move forward with palliative care at home, which is appropriate.
-No further cardiac recommendations at this point, unfortunately.
Impression / Plan
-
[id number] HFrEF, NICM EF 15-20%:
-severe exacerbation, requiring hospitalization and IV diuretics
-Echo 11/26/24: EF 15-20%. Severe global hypokinesis with septal dyskinesis. Low normal right ventricular systolic and function. Severely dilated left atrium. Severely dilated right atrium. Moderate to severe mitral regurgitation. Aortic sclerosis
without stenosis. Moderate aortic regurgitation. Moderate to severe tricuspid regurgitation. Estimated pulmonary artery pressure of 60-65 mmHg. The IVC is dilated and does not collapse.
-of note, last admit, she required milrinone/furosemide drip. Hospice/palliative care was discussed during that hospitalization, but ultimately decided against at that time by patient/family per chart.
-she is up 15 lbs from hospitalization 2 months ago despite medications for CHF.
-On Entresto, spironolactone, metoprolol succinate, and SGLT2I. Continue Lasix 80 mg IV BID for now- this requires intensive monitoring.
-Metolazone added yesterday.
-Poor prognosis; patient becoming nauseous, tachycardic, and BUN/creatinine starting to increase.
-Daughter Stella) at bedside this a.m.; discussed plans to move forward with palliative care at home, which is appropriate.
New DVT:
- Management as per primary team; currently on a heparin drip.
HTN:
- Stable/controlled.
Abnormal troponin:
-acute, non-ischemic myocardial injury secondary to CHF exacerbation, hypoxemia
Physical Exam
Vital Signs/Labs
Vital Signs
Temp Pulse Resp BP Pulse Ox
98.3 F 77 20 124/71 97
02/04/25 08:30 02/04/25 08:45 02/04/25 08:30 02/04/25 08:45 02/04/25 08:30
02/03/25 02/04/25 02/05/25
06:59 06:59 06:59
Actual Weight 53.9 kg
02/04/25 03:51
PT 17.3 Sec (11.4-14.6) H 02/01/25 18:26
INR 1.39 02/01/25 18:26
Magnesium 2.1 mg/dl (1.6-2.3) 02/04/25 03:51
02/01/25
18:26
[id number] Pept > [id number]
LAB Results
02/01/25
18:26
Troponin I 0.187 H*
Physical Exam
Constitutional: No acute distress
EENT: Anicteric
Cardiovascular: Rhythm/rate is irregular, Pedal edema present (1-2+), Systolic murmur present (3/6) and S1S2 is normal
Respiratory: Respiratory effort normal and Crackles Present (Right base)
GI: Soft
Neuro/Psych: AO x 3
Other: Skin (Warm, dry)
Data Reviewed
-
Date of Service: February 04, 2025
EKG: Tracing Personally Visualized and interpreted (Atrial fibrillation)
Echo: Report Reviewed by me (EF 15%)
Medical Tests (PFT, Pathology etc): Discussed with Physician (Primary hospitalist, Corrective And Manual Arts Therapist), Discussed with Nurse, Discussed with Patient and Discussed with Family (Daughter (rn social services) at bedside)
Labs: Labs Reviewed by me
--- NOTE | 2025-02-04 09:22 | W.PN.PUL3 ---
Today's Communication / Plan
-
Had a long discussion with patient and daughter at bedside regarding Eliquis dosing
It is likely that the patient and the daughter would stop all medications within a 30-day time frame especially going to home hospice
We discussed the futility of starting Eliquis while here and risking bleeding especially if the full 3-month course will not be completed
They were in agreement and have declined any anticoagulation, also declined IVC filter placement
All of their questions were answered
Await placement to home hospice, consult was placed, care team aware
We will sign off at this time, please call with questions
Assessment
-
Patient is an 84-year-old female with previous history of heart failure with reduced ejection fraction, hypertension, chronic kidney disease presenting to ER with abdominal distention, lower extremity edema and weight gain. She is notably in
acute on chronic heart failure exacerbation. She has known nonischemic cardiomyopathy with EF 10-15%. Had lower extremity Dopplers demonstrating DVT, overnight developed epistaxis with discontinuation of her prophylactic heparin dosing. She has
echocardiogram findings of reduced EF, RV dysfunction, pulmonary hypertension with concern for possible concurrent PE. She was originally placed on 2 L nasal cannula but now changed to face tent due to epistaxis. She is not known to be on oxygen
at home.
Acute on chronic heart failure exacerbation with reduced EF
Acute hypoxic respiratory failure
Acute RLE DVT, suspect PE
RV dysfunction, pulmonary hypertension
Lower extremity edema
Calf pain
Shortness of breath
Epistaxis
Conditions present prior to admission
Chronic HFrEF
Non-Ischemic Cardiomyopathy (LVEF 10-15%)
Benign Hypertension
CKD III
GERD
Depression
Plan
Hypoxemia noted on arrival, she is placed on 2L NC
No oxygen is needed at baseline at home
Home O2 evaluation eventually post diuresis
Prior history of lung disease is NOT noted--she has chest x-ray demonstrating effusion
Suspect patient has acute on chronic heart failure
She is placed on IV diuresis, she has noted to be end-stage per her outpatient fairing man
Underwent ultrasound demonstrating right lower extremity DVT, there is suspicion of PE based on her echo
I would not pursue scanning as this would not associate professor of management
She would need oral anticoagulation course regardless of results of CTA versus VQ scan
On further discussion she would not want Eliquis as she would likely stop this as OP
Epistaxis noted, ENT consult obtained
Family has declined OAC
IVC filter--family declined
Cards following for acute on chronic heart failure
Prior ECHO results are reviewed indicating EF 10 to 15%
Output has been very minimal, may consider milrinone therapy
Creatinine noted to be 1.1
Given her end-stage cardiomyopathy, would not be unreasonable to initiate palliative care discussions
Hospice evaluation had been completed back in November but patient was not ready for hospice at that point
I would reassess this if she has no clinical improvement or is unable to proceed with oral anticoagulation course
She is currently DNR
Hospice eval ongoing, awaiting placement/home option
Discharge planning otherwise per team
Diagnostic Data
Chest X-Ray: 02/01/25- Small bilateral pleural effusions. Bilateral infrahilar pulmonary opacities, left greater than right, favored to be secondary to pulmonary edema. Pneumonia would be an alternative consideration in the appropriate clinical
setting. No pneumothorax. Stable enlarged cardiac silhouette. Chronic degenerative changes of the spine.
11/25/24- Suspect mild CHF. Small bilateral pleural effusions with associated atelectasis and/or pneumonia. Cannot rule out component of underlying chronic interstitial lung disease.
CT Scan: AP 11/25/24- Marked edematous changes of the posterior/lateral abdominal and pelvic christina, left greater than right without discrete finding to suggest a posterior abdominal wall focal hematoma although evaluation limited. Grossly intact solid
organs of the abdomen. Symmetric renal excretion. Mild hepatomegaly. Subcentimeter low-attenuation left renal lesion too small to characterize.
Small volume ascites. At least moderate right and small left pleural effusions, partially included on this study. Aerated portions of lungs contain some nonspecific mild groundglass opacities.
Heterogeneous appearance of the uterus. Cannot exclude space-occupying lesion. Cardiomegaly.
US legs 02/03/25- Nonocclusive thrombus in the right peroneal vein and posterior division of the right posterior tibial vein. No evidence of deep venous thrombosis of the left lower extremity.
Echo: 02/02/25- Left ventricular cavity size is 5.06 cm which is mildly increased. Moderate eccentric left ventricular hypertrophy. Multiple left ventricular segmental wall motion abnormalities are noted, as described below. Severely decreased left
ventricular function. Ejection fraction is 15-20% by visual assessment.
Right ventricular cavity size is moderately dilated. Right ventricular systolic function is mildly decreased. Indexed left atrial volume is severely abnormal (>48 ml/m2). Severely dilated right atrium.
Moderate mitral annular calcification. The mitral annulus is dilated. moderate to severe mitral valve regurgitation. Moderate aortic regurgitation.
Tricuspid valve opens normally. Mild to moderate tricuspid regurgitation. Estimated pulmonary artery pressure of 36 mmHg assuming a right atrial pressure of 3 mmHg. Left pleural effusion is noted.
Compared to a prior transthoracic echocardiogram study from 11/26/2024 no significant changes are seen.
[facility] 12/02/24- HEMODYNAMIC DATA: AO 122/67 (mean 88) mmHg - RA 11 mmHg - RV 58/7 (EDP 11) mmHg - PA 58/28 (mean 39) mmHg - PCWP 31 mmHg
SaO2 90.6% - SvO2 46.5% - Hb 12.1 g/dL - CO/CI 2.59/1.72 L/min/m2 - SVR 2376 dsc*-5 - PVR 3.1 Wood units
PFT's:
Reports and relevant images were personally reviewed.
Total time spent on this consultation __51__ minutes which includes review of history, physical exam, medications, laboratory data, personal review of imaging, extensive review of outpatient records, discussion with care team and respiratory therapy.
Subjective Data
-
Date of Service:
Date of Service: February 04, 2025
Chief Complaint: Pulmonary Follow Up
Subjective:
Doing well today, no new complaints
Remains on low supplemental O2
Objective Data
Data Reviewed
Vital Signs / I&O / Oxygen:
Vital Signs
Temp Pulse Resp BP Pulse Ox
98.3 F 77 20 124/71 99
02/04/25 08:45 02/04/25 08:45 02/04/25 08:45 02/04/25 08:45 02/04/25 08:45
Intake and Output
02/03/25 02/04/25 02/05/25
06:59 06:59 06:59
Intake Total 240 / 240 50 / 50
Output Total 150 / 150 2049
Balance 90 / 90 -1999 /
SaO2 99
Nasal Cannula flow liters per 3
minute
Physical Exam
General: Comfortable, Poor Appetite and Other (NAD, thin/weak appearing)
HEENT: Normocephalic, Anicteric and Moist Mucous Membranes
Cardiovascular: S1-S2 and Regular Rhythm
Respiratory: Clear and Non-Labored Respirations
GI: Soft, Non Distended and Non Tender
Neurology: Awake, Alert, Oriented and No Motor Deficits
Skin: Warm, Dry and Good Color
Labs/Micro/Reports
Lab Data
02/04/25 03:51
--- NOTE | 2025-02-04 10:45 | HOSPNOTE ---
Hospice referral received. Spoke to patients daughter Brittnee. Brittnee works with [facility] and they have elected to use them for hospice services. CM and Attending updated. Hospice will sign off at this time.
--- NOTE | 2025-02-04 12:20 | CM ---
Addendum entered by Chely Bush RN 02/04/25 16:10:
[facility] accepted the patient. Plan is for the patient to be transported home by ambulance 02/04 between -12 set up by [facility]
Original Note:
Chart reviewed. Patient is lives at [place] at [facility] with her who she cares for, 1 STH, 0 DIXIE, ambulates with a RW, shower chair, and grab bars. Patient has private caregivers come into the house M/W/F4 hours a day. After family
discussion patient is choosing to go home on Hospice. Family would like to use [facility]. Referral sent and I spoke to the intake department. Waiting on follow up phone call. I spoke to the patient's daughter, Brittnee, she is working on
getting her mother private caregivers 12 hours a day. Plan is for the patient to go home with Hospice. CM to follow
[2025-02-04 12:36] VITALS: BP 123/67
[2025-02-04 15:51] VITALS: BP 113/69
--- NOTE | 2025-02-04 18:55 | PTCARENOTE ---
~[id number]: handoff report received from nightshift RN. Pt Disoriented to place and month, easily reoriented, NSR BBB on tele 70s, SBP 120s, 3L NC 99%. O2 weaned to 2L. RLE +3 pitting edema, LLE +2 pitting edema. +2/+1 pulses. Around 30 patient
went into Afib 110s-130s, patient self converted to NSR around 0800. Dr. Melton in to see patient this AM, orders placed to start heperin gtt d/t blood clot found in leg. Mutliple discussions with family and patient about wants. Family desires
palliative/ hospice but uncertain about ending medication use or keep medications going. Patient slightly nauseaus this AM, zofran ordered but resolved on its own. Ax1 with walker to bathroom and OOB to chair, patient with stress incontinence,
underwear and pad utilized. All needs met at this time, call nation within reach.
~[id number]: In to completed bloodwork prior to heparin gtt initiation, unable to obtain bloodwork d/t pt being a hard stick. Informed the patient I would need to get someone else in to try and get labs. patient refused blood and heparin gt. Patient
stated 'this is a sign I shouldn't have it.' Informed hospital care team via TT of patient wishes. Heparin gtt order and labs d/c;d by Dr Melton at this time. Informed CM who sent a referral to [facility]. All needs met at this time, call nation
within reach.
~[id number]: CM reported that [facility] is coordinating pickup tomorrow for between 11-12pm. Patient is resting in bed with purewick in place at this time. Ax1 walker to bathroom as well. Family at bedside. VSS at this time. Pt denies pain. All
needs met at this time, call nation within reach. Handoff report given to nightshift RN.
[2025-02-04 19:41] VITALS: BP 119/58
[2025-02-04] MEDS: TOPROL XL 25 MG PO (19:54)
[2025-02-04 22:35] VITALS: BP 112/61
[2025-02-04] MEDS: ZOLOFT 150 MG PO (22:39)
[2025-02-05 02:38] VITALS: BP 117/61
[2025-02-05 03:09] VITALS: BMI 20.5
[2025-02-05 07:07] VITALS: BP 123/63
[2025-02-05] MEDS: PROTONIX 40 MG PO (08:55)
[2025-02-05] MEDS: PEPCID 20 MG PO (08:55)
[2025-02-05] MEDS: LASIX 80 MG IV (08:55)
[2025-02-05] MEDS: ALDACTONE 25 MG PO (08:56)
[2025-02-05] MEDS: VITAMIN D3 (cholecalciferol) 50 MCG PO (08:56)
[2025-02-05] MEDS: THERAGRAN 1 TABLET PO (08:56)
[2025-02-05] MEDS: ENTRESTO 24 MG/26 MG 1 TAB PO (08:56)
[2025-02-05] MEDS: ZAROXOLYN 2.5 MG PO (08:56)
[2025-02-05] MEDS: AYR SALINE NASAL GEL 1 APPLIC NASAL (08:56)
[2025-02-05] MEDS: FARXIGA 10 MG PO (08:56)
[2025-02-05] MEDS: TRUSOPT 2% OPHTHALMIC SOLUTION 1 DROP BOTH EYES (08:57)
[2025-02-05] MEDS: TIMOPTIC 0.25% OPHTHALMIC SOLUTION 1 DROP BOTH EYES (08:57)
--- NOTE | 2025-02-05 09:38 | W.PN.HOSP.TC ---
Today's Communication/Plan
-
Discharge
Assessment / Plan
Assessment / Plan
Physical Exam
General: Not in acute distress
HEENT: Normocephalic, Moist mucous membranes
Respiratory: Decreased Breath Sounds Bilaterally. ON 3 L NASAL CANNULA OXYGEN (UP FROM 2 L).
Cardiac: S1/S2, Regular Rhythm
GI: Soft, Non Tender, Normal Bowel Sounds
Musculoskeletal: Peripheral Edema (Bilateral Lower Extremity edema)
Skin: Warm. Dry.
Neuro: Awake, AO x 3 and Nonfocal/grossly intact
Psych: Calm and Intact Judgment/Insight
84 y female with past medical history significant for depression, HFrEF (previously required Milrinone-assisted diuresis), hypertension, GERD and CKD III who presented to the [facility] ED complaining of abdominal distention, LE edema and weight gain.
Patient noted progressive symptoms over the past week or two prior to presentation. Recently, she had her medications adjusted by her primary Smearer (changed Lasix to Torsemide, increased Aldactone) with no appreciable improvement. She
presented to the ED today for further evaluation. Patient complained of significant fatigue. She denied any chest pain. She perhaps had mild dyspnea with activity. She also states she does not feel she has been urinating as much as she normally
does.
#[id number] HFrEF
#Non-Ischemic Cardiomyopathy (LVEF ~15%)
- Continue to monitor in IVU
- Consult cardiology
- Continue Jardiance/Farxiga, Entresto, Metoprolol Succinate and Spironolactone
- Hold PO torsemide
- Continue IV Lasix 80 mg BID
- Metolazone as per cardiology added on 02/03/25
#Epistaxis overnight 02/02/25-02/03/25
#History of Epistaxis
-Per my communication with patient's nurse on 02/03/25, the nosebleeding was significant needing to pressure, Afrin, and holding chemical DVT prophylaxis
-Consulted ENT -- nosebleed likely from nasal cannula, dryness, and heparin
-Saline gel or similar antibiotic ointment BID (including qhs) to minimize recurrent epistaxis
#RLE DVT -- diagnosed on 02/03/25
#Right Ventricular enlargement on echocardiogram
-Heparin Drip was ordered, but patient is a hard stick and declined any further blood draws
-I explained to patient and her daughter Brittnee that it is unsafe to do Heparin Drip without doing blood draws to check coag labs
-Since patient will go to home with home hospice tomorrow, they declined any anticoagulation at this time
#hypertension
- continue metoprolol
#GERD
- continue famotidine and pantoprazole
#depression
- continue sertraline
#CKD IIIa
BUN 42, Creat 1.2, eGFR 56.25
- monitor BMP
DNR
Dispo -stable for discharge home on hospice today.
Anticipated Discharge: Today
Subjective/Interval History
-
Date of Service: February 05, 2025
Patient seen and examined. No complaints.
Objective Data
-
Vital Signs:
Vital Signs
Temp Pulse Resp BP Pulse Ox
98.6 F 76 16 117/61 93
02/05/25 07:03 02/05/25 05:00 02/05/25 07:03 02/05/25 02:38 02/05/25 07:03
I&O
02/04/25 02/05/25 02/06/25
06:59 06:59 06:59
Intake Total 50 / 50 238 / 238 240 / 240
Output Total 2049 2600 / 2600
Balance -1999 / -1999 -2361 / -2362 240 / 240
Review of Systems
-
History Source: Patient
All other systems: Reviewed and negative
--- NOTE | 2025-02-05 09:39 | W.DS.TRANS ---
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
-
Discharge Instructions:
Sleep Apnea Risk Intermediate
Discharge Diagnosis/Procedures Heart failure exacerbation, right lower
extremity DVT
Diet Low Cholesterol
Activity As tolerated
Driving Restrictions No driving
Bathing Restrictions None
Other Services Hospice
Instructions:
Stand-Alone Forms:
Changes to Home Medications: No
Discharge Medications:
DC Medications w/original date entered in L[facility]12
cevimeline 30 mg capsule 1 cap PO TID Xerostomia 11/25/24
dorzolamide 22.3 mg-timolol 6.8 mg/mL eye drops (Cosopt) 1 drp BOTH EYES BID Eye Condition 11/25/24
famotidine 40 mg tablet (Pepcid) 20 mg PO BID Gastrointestinal Issue 11/25/24
sertraline 50 mg tablet 150 mg PO DAILY Depression 11/25/24
metoprolol succinate 25 mg tablet,extended release 24 hr 25 mg PO DAILY@1999 30 days #30 tabs 12/07/24
clobetasol 0.05 % topical gel 1 applic topical BID Anti-Inflammatory 02/01/25
spironolactone 25 mg tablet 25 mg PO DAILY Heart Disease/Condition 02/01/25
torsemide 40 mg tablet 40 mg PO DAILY Fluid Retention/Swelling 02/01/25
Home Medication Changes
Pending Results: No
--- NOTE | 2025-02-05 11:00 | PTCARENOTE ---
Discharge teaching provided to her daughter, she verbalized understanding. Arrangements in place for home hospice. IV and telemetry removed. Ambulance pickup today [phone] today. Daughter at bedside
--- NOTE | 2025-02-05 12:05 | PTCARENOTE ---
Patient sent to [facility] by ambulance
== END 2025-02-05 12:43 | disposition hospice, home (50) | DRG 291 ==
LOC: IVU 21:47
PROVIDERS: Emergency Medicine; Hospitalist; Nurse Practitioner Family; Nurse Practitioner Gerontology; ADMITTING PHYSICIAN Hospitalist; ATTENDING PHYSICIAN Hospitalist; CONSULT PHYSICIAN Internal Medicine; EMERGENCY PHYSICIAN Emergency Medicine; FAMILY PHYSICIAN Family Medicine; OTHER PHYSICIAN Internal Medicine; OTHER PHYSICIAN Otolaryngology
DX: I13.0 Hypertensive heart and chronic kidney disease with heart failure and stage 1 through stage 4 chronic kidney disease, or unspecified chronic kidney disease (principal); I50.23 Acute on chronic systolic (congestive) heart failure; J96.01 Acute respiratory failure with hypoxia; I82.451 Acute embolism and thrombosis of right peroneal vein; D68.32 Hemorrhagic disorder due to extrinsic circulating anticoagulants; E78.00 Pure hypercholesterolemia, unspecified; N18.31 Chronic kidney disease, stage 3a; K21.9 Gastro-esophageal reflux disease without esophagitis; I42.8 Other cardiomyopathies; I27.20 Pulmonary hypertension, unspecified; I08.3 Combined rheumatic disorders of mitral, aortic and tricuspid valves; I70.0 Atherosclerosis of aorta; F32.A Depression, unspecified; R54 Age-related physical debility; I5A Non-ischemic myocardial injury (non-traumatic); R04.0 Epistaxis; Z66 Do not resuscitate; Z79.84 Long term (current) use of oral hypoglycemic drugs
CPT/HCPCS: 71046; 80048; 80053; 83735; 83880; 84484; 85014; 85018; 85025; 85027; 85610; 93005; 93308; 93321; 93325; 93970; 96374; 97163; 99285